=== PATIENT | female | born 1985 | race Caucasian/White ===

== ENCOUNTER 2020-03-03 06:02 | Inpatient (IN) | payer OTHER, SELFPAY ==
[2020-03-03] VITALS (96 sets, daily range): BP systolic 57–184; BP diastolic 28–134; PULSE 60–241; RESP 16–18; TEMP 36.3–37.1; O2SAT 99–100; BMI 40.7
[2020-03-03 06:53] LABS: Glucose Point of Care 124 (65-105)
--- NOTE | 2020-03-03 07:06 | LDADM ---
This patient, Margarette Kumari, was admitted to Labor/Delivery/Recovery 104 on 03/03/20 at 06:02. Plans for labor, pain management and were discussed with patient. Patient/family oriented to hospital policies and general routines including ID bracelet, bed and alarms, visiting hours, pain management, procedures, bathroom and other care routines, personal items, smoking policy, room service/diet and guest tray routines, infant security routines, and visiting hours. Patient/Family are encouraged to report perceived risks to care and to ask questions if they do not understand what they are told or what they should do. See OBIX for further documentation.
[2020-03-03] MEDS: LACTATED RINGERS 1,000 ML 125 ML IV CONT ×2 (07:11→10:26)
[2020-03-03] MEDS: OXYTOCIN 30 UNITS/NS 500 ML 30 UNITS/500 ML BAG IV CONT ×2 (07:12→14:51)
[2020-03-03 07:23] LABS: Basophils Percent Auto 0.3 % (0.2-1.2); Eosinophils Absolute Auto 0.1 K/mm3 (0-0.3); Eosinophils Percent Auto 1.1 % (0-4.4); Hematocrit 37.1 % (37.0-47.0); Hemoglobin 12.9 g/dL (12.0-15.0); Immature Granulocyte Absolute 0.04 K/mm3 (0.00-0.031); Immature Granulocyte Percent A 0.4 % (0-0.5); Lymphocytes Absolute Auto 1.95 K/mm3 (0.9-3.2); Lymphocytes Percent Auto 20.9 % (18.3-44.2); Mean Corpuscular HGB Conc 34.8 g/dl (32-36); Mean Corpuscular Volume 89.2 fl (80-100); Mean Platelet Volume 11.8 fl (7.4-10.4); Monocytes Absolute Auto 0.7 K/mm3 (0.1-0.6); Monocytes Percent Auto 7.7 % (2.6-8.5); Neutrophils Absolute Auto 6.5 K/mm3 (1.3-6.7); Neutrophils Percent Auto 69.6 % (45.5-73.1); Platelet Count Result 185 k/mm3 (150-375); Red Blood Count 4.16 M/mm3 (4.2-5.4); Red Cell Distribution Width 13.7 % (11.5-14.5); White Blood Count 9.3 K/mm3 (4.5-10.0)
--- NOTE | 2020-03-03 07:48 | WPDOBADMIT ---
Obstetrics - Admit Note Admission Note: 34 y/o here for induction of labor. She has late diganosis GDM. Diet controlled. EFT 7-12 11 days ago. VSS Contractions regular FHR category 1 Cervix /-2 Will defer arom until antibiotics for GBS have been in for 4 hours. record reviewed. No pertinent additions to the history and/or any subsequent changes in the physical findings that are not consistent with the expected course of the were found. Additions to the history and/or subsequent changes in the physical findings follow. None.
--- NOTE | 2020-03-03 10:25 | WPDANESEPP ---
Anes - Eval Pre Procedure Procedure: labor epidural Date/Time: 03/03/20 10:25 Surgeon: alli Pre Op Diagnosis: Induction to Labor Patient Data Age: 34 Gender: F Height: 1.7 m Weight: 118 kg Last Vital Signs Temp 37.1 C 03/03/20 07:30 Pulse 68 03/03/20 09:31 BP 97/60 L 03/03/20 09:31 Pulse Ox 100 03/03/20 10:25 Allergies Allergy/AdvReac Type Severity Reaction Status Date / Time Penicillins Allergy Unknown Itching Verified 09/22/19 19:50 Home Medications Medication Instructions Recorded Confirmed Type PNV cmb#95-ferrous fumarate-FA 1 tablet PO DAILY 02/25/20 02/25/20 History [] clonazepam 0.5 mg PO DAILY 02/25/20 02/25/20 History fluoxetine 20 mg PO DAILY 02/25/20 02/25/20 History levothyroxine 25 mcg PO DAILY 02/25/20 02/25/20 History Laboratory Tests 03/03/20 03/03/20 03/03/20 06:48 06:55 06:55 WBC 9.3 K/mm3 K/mm3 (4.5-10.0) RBC 4.16 M/mm3 L M/mm3 (4.2-5.4) Hgb 12.9 g/dL g/dL (12.0-15.0) Hct 37.1 % % (37.0-47.0) MCV 89.2 fl fl (80-100) MCH 31.0 pg pg (26-34) MCHC 34.8 g/dl g/dl (32-36) RDW 13.7 % % (11.5-14.5) Plt Count 185 k/mm3 k/mm3 (150-375) MPV 11.8 fl H fl (7.4-10.4) Immature Gran % (Auto) 0.4 % % (0-0.5) Neut % (Auto) 69.6 % % (45.5-73.1) Lymph % (Auto) 20.9 % % (18.3-44.2) [place] % (Auto) 7.7 % % (2.6-8.5) Eos % (Auto) 1.1 % % (0-4.4) Baso % (Auto) 0.3 % % (0.2-1.2) Lymph # (Auto) 1.95 K/mm3 K/mm3 (0.9-3.2) [place] # (Auto) 0.7 K/mm3 H K/mm3 (0.1-0.6) Eos # (Auto) 0.1 K/mm3 K/mm3 (0-0.3) Baso # (Auto) 0.0 K/mm3 K/mm3 (0.0-0.1) Abs Immat Gran (auto) 0.04 K/mm3 H K/mm3 (0.00-0.031) Absolute Neuts (auto) 6.5 K/mm3 K/mm3 (1.3-6.7) Absolute Nucleated RBC 0.0 K/mm3 K/mm3 (0.0-0.012) Nucleated RBC % 0.0 % % (0.0-0.2) POC Capillary Glucose 124 mg/dl H mg/dl (65-105) RPR Pending Blood Type Antibody Screen 03/03/20 06:55 WBC RBC Hgb Hct MCV MCH MCHC RDW Plt Count MPV Immature Gran % (Auto) Neut % (Auto) Lymph % (Auto) [place] % (Auto) Eos % (Auto) Baso % (Auto) Lymph # (Auto) [place] # (Auto) Eos # (Auto) Baso # (Auto) Abs Immat Gran (auto) Absolute Neuts (auto) Absolute Nucleated RBC Nucleated RBC % POC Capillary Glucose RPR Blood Type A Positive Antibody Screen Negative Patient hx anesthesia problems: none Family hx anesthesia problems: none PMFSH Past Medical History Medical History (Updated 09/23/19 @ 00:00 by Stephen Badillo) Anxiety Depression Dog bite rt leg, surgery needed Fractures rt toe, rt ankle Miscarriage x2 Surgical History Surgical History (Updated 09/22/19 @ 20:08 by Lina Campos) History of orthopedic surgery rt foot Family History Family History (Updated 02/25/20 @ 13:43 by Aric Valdivia RN) Mother Thyroid disease Hypertension High cholesterol Grandparent Hypertension Breast cancer Sibling Hepatitis Bleeding disorder Father Lung cancer Social History Social History (Updated 09/22/19 @ 20:08 by Lina Campos) Smoking status: Never smoker Substance use: never Gender identity (if verbalized by the patient): Female Sexual Orientation (if Verbalized by the Patient): Straight or Heterosexual Spiritual care concerns: No Exam Day of Procedure 03/03/20 10:25
[2020-03-03 11:16] LABS: Glucose Point of Care 79 (65-105)
--- NOTE | 2020-03-03 12:17 | PM.OBPNLAB ---
Pain Control Date/time seen: 03/03/20 12:17 VSS Contractions regular FHR category 1 Cervix 7-8/90/-2 SROM occured during exam Pt comfortable with epidural
[2020-03-03] MEDS: ONDANSETRON INJ 4 MG/2 ML VIAL IV PUSH (12:56)
--- NOTE | 2020-03-03 14:35 | PM.OBPRVD ---
OB - Delivery Note Procedure Delivery date: 03/03/20 Procedure: Intrapartal events: None Induction method: per pitocin protocol Delivery monitor: external FHT and external uterine Route of delivery: Laceration description: Labial (1st degree right labial) Delivery repair: vicryl Specimen: Yes Estimated blood loss (mL): 240 Anesthesia type: Epidural [place] Baby Date of : 03/03/20 Time of : 14:13 Weeks of gestation at delivery: 39 Infant gender: Male Weight (pounds): 8 Weight (ounces): 10 presentation: vertex score one minute: 8 score five minutes: 9 Narrative: Mother and baby in stable condition. Cord gasses collected and handed off to staff.
[2020-03-03] MEDS: BENZOCAINE 20% AER SPR (*SP) 56 GM CAN 1 SPRAY TOPICAL (16:22)
[2020-03-03] MEDS: WITCH HAZEL 40 PADS 1 PAD TOPICAL (16:22)
[2020-03-03] MEDS: ACETAMINOPHEN 325 MG TABLET 650 MG PO (21:19)
[2020-03-03] MEDS: ZOLPIDEM TARTRATE 5 MG TABLET PO (21:19)
[2020-03-03] MEDS: IBUPROFEN 600 MG TABLET PO (21:19)
[2020-03-04 05:13] LABS: Hemoglobin 10.7 g/dL (12.0-15.0)
[2020-03-04] MEDS: LEVOTHYROXINE SODIUM 25 MCG TABLET PO (06:52)
[2020-03-04] MEDS: IBUPROFEN 600 MG TABLET PO ×2 (07:09→17:24)
--- NOTE | 2020-03-04 07:37 | PM.OBPNVD ---
OB - PN: Subj Subjective Date/time seen: 03/04/20 07:37 Patient comments: no complaints, pain well controlled, incisional pain, tolerating diet and flatus present OB - PN: Obj Data Labs CBC & Chem 7: 03/04/20 05:04 Labs: Laboratory Results - last 24 hr 03/03/20 03/03/20 03/04/20 06:55 11:05 05:04 Hgb 10.7 L Hct 31.0 L POC Capillary Glucose 79 Blood Type A Positive Antibody Screen Negative OB - PN A/P Plan day: 1 Plan: routine care Comments: No problems, routine care Time Spent With Patient Time: Total time spent is greater than 50% in coordination of care (as documented) at patient's floor/unit and/or counseling patient: Exam Const: General: comfortable, no acute distress and alert Resp: Effort & Inspection: normal respiratory effort Auscultation: no crackles, no rales and no rhonchi Cardio: Rate: regular rate Heart sounds: no click, no murmurs and no rubs GI: Inspection: non-distended GI Palp: No Tenderness to palpation present (GI) Auscultation: normal bowel sounds Other: Incision - CDI Extrem: General: normal to inspection, no pedal edema and no calf tenderness
[2020-03-04 08:05] VITALS: BP 88/48; PULSE 64; RESP 16; TEMP 36.8; O2SAT 97
[2020-03-04 08:54] LABS: Rapid Plasma Reagin Non-Reactive (NonReactive)
[2020-03-04] MEDS: CLONAZEPAM 0.5 MG TAB PO (09:43)
[2020-03-04] MEDS: TETANUS,DIPHTHERIA,AC PERTUSSIS ADULT (0.5 ML) BOOSTRIX IM (09:43)
--- NOTE | 2020-03-04 10:44 | WPDANLDPN2 ---
Anes-Prog Note L&D Date/Time: 03/04/20 10:44 Comfortable throughout: labor and delivery Neuraxial method: epidural Epidural/Spinal procedure site: clean & non-tender Neuro status: Neuro function grossly intact. Cardiovascular status: normal Vital Signs: Last Vital Signs Temp 36.8 C 03/04/20 08:05 Pulse 64 03/04/20 08:05 Resp 16 03/04/20 08:05 BP 88/48 L 03/04/20 08:05 Pulse Ox 97 03/04/20 08:05 I/O: Intake & Output 03/03/20 03/04/20 03/04/20 23:59 07:59 15:59 Output Total 120 Balance -120 Patient feedback: Patient satisfied with anesthetic care.
[2020-03-04] MEDS: MULTIVIT/MIN/PREN/FOL AC/IRON TABLET 1 TAB PO (12:48)
[2020-03-04 20:10] VITALS: BP 122/67; PULSE 67; RESP 14; TEMP 36.9; O2SAT 100
[2020-03-04] MEDS: FLUOXETINE HCL 20 MG CAP PO (21:19)
[2020-03-04] MEDS: ZOLPIDEM TARTRATE 5 MG TABLET PO (21:20)
[2020-03-05] MEDS: LEVOTHYROXINE SODIUM 25 MCG TABLET PO (07:04)
--- NOTE | 2020-03-05 07:23 | PM.OBPNVD ---
OB - PN: Subj Subjective Date/time seen: 03/05/20 07:23 Patient comments: no complaints OB - PN: Obj Data Labs CBC & Chem 7: 03/04/20 05:04 Labs: Laboratory Results - last 24 hr 03/03/20 06:55 RPR Non-reactive OB - PN A/P Plan day: 2 Plan: discharge home Time Spent With Patient Time: Total time spent is greater than 50% in coordination of care (as documented) at patient's floor/unit and/or counseling patient: Review of Systems Review of Systems: All systems reviewed & are unremarkable except as noted in HPI and below Exam Const: General: comfortable Psych: Appearance: grossly normal Affect: normal affect Attitude: cooperative Judgement: Good judgement present (Psych)
[2020-03-05 08:00] VITALS: BP 100/61; PULSE 74; RESP 18; TEMP 36.9; O2SAT 97
--- NOTE | 2020-03-05 08:23 | PC.NURSE ---
On 03/05/20, all charting on this pt. from [phone] to [id number] under the name Tio Gates RN was actually performed and completed by Sreedhar Funez RN
[2020-03-05] MEDS: CLONAZEPAM 0.5 MG TAB PO (09:04)
[2020-03-05] MEDS: MULTIVIT/MIN/PREN/FOL AC/IRON TABLET 1 TAB PO (09:04)
[2020-03-05] MEDS: BENZOCAINE 20% AER SPR (*SP) 56 GM CAN 1 SPRAY TOPICAL (09:06)
[2020-03-05] MEDS: WITCH HAZEL 40 PADS 1 PAD TOPICAL (09:06)
[2020-03-06 09:33] VITALS: BP 106/71; PULSE 70; RESP 20; TEMP 36.8
--- NOTE | 2020-03-28 12:05 | PM.OBDSVD ---
DS: Admitting Diagnosis Admitting Diagnosis Admitting Diagnosis: Encounter for supervision of normal , unspecified, third trimester OB - DS: Summary OB Procedures : None OB Procedures Intrapartum: Spontaneous Vag Delivery OB Procedures: : None Time Spent with Patient Time attestation: Total time spent providing and/or coordinating discharge services: DS: Data Data Completed and Pending Completed studies during hospitalization: Pending at discharge 03/03/20 15:56 Surgical [PTH] Routine Discharge Plan Discharge Attending physician on discharge: Zuleika Montanez Consulting providers: Jing Fuentes ; Cadence Marin Discharging Clinician: Cadence Marin Patient Disposition: Home, Self-Care Activity: pelvic rest Diet: as tolerated and regular Discharge Instructions: Education: Mom and Baby Guide Given to: Mother Follow-Up: Call your delivering provider's office for an appointment to be seen. Mom and baby should come to the [facility] for the follow-up appointment. Appointment Date/Time: March 06, 2020 at 9:00 am What to expect at your follow-up visit: Physical Assessment Call [phone] if you are unable to keep your appointment time. BREAST CARE: 1. Wear a snug supportive bra. 2. For engorgement discomfort: Bottle Feeding: A. May apply ice packs PERINEAL CARE: 1. Until bleeding stops, use your azul bottle after urinating 2. Change your pad frequently throughout the day 3. You may take sitz baths several times a day (fill your bathtub with warm water and soak for 20 minutes.) Do NOT bathe in the water 4. No tub baths until seen by your physician - You may shower ACTIVITY: 1. Rest as much as possible. 2. Do not exercise or lift anything heavier than your baby (such as laundry or other children.) 3. Avoid stairs or driving as much as possible. 4. Do not put anything into the vagina. No douching, tampons, or sexual activity until seen by physician. NOTIFY PHYSICIAN IF YOU HAVE ANY QUESTIONS OR IF ANY OF THE FOLLOWING SYMPTOMS OCCUR: 1. If your stitches become red, swollen, or more painful than what you have experienced in the hospital. 2. If your vaginal bleeding becomes foul smelling. 3. If your vaginal bleeding becomes more heavy than a period or if your bleeding changes from pink to bright red. However, you may pass an occasional walnut-sized clot once or twice for the first week . 4. If you experience a sharp, shooting pain in you calves. 5. If you discover a hard, reddened area on your breast or if you experience flu-like symptoms. DIET: 1. Eat regular, well-balanced meals. 2. Drink plenty of fluids daily. Patient Instructions: Antibiotic Form Stand Alone Forms: General Discharge Information Follow-up/Referrals: Zuleika Montanez MD [Physician] - 4 Weeks Cadence Marin CNM [Certified Nurse Presser Hand] - Discharge Medications: Continued clonazepam 0.5 mg Tablet 0.5 mg PO DAILY RF: 0 fluoxetine 20 mg Capsule 20 mg PO DAILY RF: 0 levothyroxine 25 mcg Capsule 25 mcg PO DAILY RF: 0 PNV cmb#95-ferrous fumarate-FA [] 28 mg iron- 800 mcg Tablet 1 tablet PO DAILY RF: 0 Date of admission: 03/03/20 06:02 Primary Care Provider: PHYSICIAN,OPHTHALMIC PATHOLOGIST Admitting Provider: Zuleika Montanez Discharge Date/Time: 03/05/20 09:56 Attending physician on admission: Zuleika Montanez
== END 2020-03-05 09:56 | disposition home or self-care (01) | DRG 560 ==
LOC: ANHLDR 06:08 → ANHOB2 17:53
PROVIDERS: Advanced Practice Midwife; Admitting Provider Obstetrics & Gynecology; Visit Provider Obstetrics & Gynecology
DX: O24.420 Gestational diabetes mellitus in childbirth, diet controlled (principal); Z37.0 Single live birth; Z3A.39 39 weeks gestation of pregnancy; O99.824 Streptococcus B carrier state complicating childbirth; O70.0 First degree perineal laceration during delivery; O99.344 Other mental disorders complicating childbirth; F41.8 Other specified anxiety disorders
CPT/HCPCS: 36415; 85014; 85018; 85025; 86592; 86850; 86900; 86901; 88307; 90715; A9270; J2405; J2590; J2795; J3010; J3370; J7120

== ENCOUNTER 2024-10-03 15:30 | Outpatient (RCR) | payer MEDICARE, MEDICAID, SELFPAY ==
--- NOTE | 2024-07-31 16:11 | OPREHPOC ---
Outpatient Therapy Plan of Care This is a Multidisciplinary Plan of Care that may contain components documented by all disciplines (PT, OT, and ST.) PT Problem 1 PT Problem #1 Knowledge Deficit PT Goal 1 Goal / Goal Update *indep with HEP Target Visit 8 PT Problem 2 PT Problem #2 Pain PT Goal 1 Goal / Goal Update 1* decrease pain rating to 5/10 at worst 2* pt report headaches 50% of the time 3* Neck Disability Index rating of 30% limitation in activity level Target Visit 8 PT Problem 3 PT Problem #3 Impaired Flexibility PT Goal 1 Goal / Goal Update increase cervical & shoulder ROM to improve ability to drive and do home activities: 1* cervical rotation R 65' 2* cervical rotation L 50' 3* R shoulder flexion 120' 4* L shoulder flexion 120' Target Visit 8
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
--- NOTE | 2024-08-28 14:16 | PTOPPROG ---
Assessment and note entered by Chiquis Loera, PT Progress Report Assessment Status Progress ICD-10 Condition Codes (PT) Cervicalgia M54.2 Onset 05-20-24 Subjective Information therapy makes me feel a little better for the rest of that day; electrical stim helped some; have been doing the exercises at home-- stretching and using the band to get stronger- they kind of help; called [facility] to get an appointment, they did not call me back; PAIN: range in the past week -03/28 decrease pain: heat pad, electrical stim, tylenol increase pain: turn head to R or L side, doing too much, first wake up in the morning have headaches daily that start about mid day, lasting about 50% of her day take tylenol for the headaches and neck pain sleeping is OK- take sleeping pill Assessment PT Clinical Summary Margarette has received 8 PT sessions. Compared to the initial evaluation: pain rating from to -03/28; reported headaches from constant to 50% of the day, onset daily in the afternoon; self assessment with Neck Disability Index rating from 42% to 24% limitation in activity level; cervical rotation to R 45'/ L 40' with increase pain both; flexion and extension - ranges WNL and no pain increase; bilateral shoulder flexion from 90' with pain to 140' without pain; continues to have muscle tightness and spasms over R and L cervical, upper traps areas. The goals were partially met. Continue PT treatment. She is to contact her medical provider for a follow up appointment. Plan of Care Interventions Electrical Stimulation,Hot Pack/Cold Pack,Manual Therapy,Neuro Re-education,Patient Education,Therapeutic Activities,Therapeutic Exercise,Ultrasound,Other Other Interventions taping PT Services Indicated Yes Treatment Frequency and 1-2x/wk for 6 visits Duration These treatments will address the objective and functional deficits as defined above. The patient will be advanced safely and appropriately in order for the patient to progress towards his/her prior level of function. Additional exercises will be introduced and as well as a comprehensive home exercise program upon discharge, if needed, ?to ensure carryover of functional gains achieved in the clinic. This treatment plan has been reviewed and agreement upon by the patient.
--- NOTE | 2024-08-28 14:16 | OPREHPOC ---
Outpatient Therapy Plan of Care This is a Multidisciplinary Plan of Care that may contain components documented by all disciplines (PT, OT, and ST.) PT Problem 1 PT Problem #1 Knowledge Deficit PT Goal 1 Goal / Goal Update *indep with HEP 08-28-24 progress goal met continue to progress education Target Visit 14 PT Problem 2 PT Problem #2 Pain PT Goal 1 Goal / Goal Update 1* decrease pain rating to 5/10 at worst 2* pt report headaches 50% of the time 3* Neck Disability Index rating of 30% limitation in activity level 08-28-24 progress goals 2,3 met NEW GOALS: 1* pain rating of 5/10 at worst 2* self assessment Neck Index rating of 18% limitation in activity level 3* pt report headaches 25% limitation in activity level Target Visit 14 PT Problem 3 PT Problem #3 Impaired Flexibility PT Goal 1 Goal / Goal Update increase cervical & shoulder ROM to improve ability to drive and do home activities: 1* cervical rotation R 65' 2* cervical rotation L 50' 3* R shoulder flexion 120' 4* L shoulder flexion 120' 08-28-24 progress goals 3,4 met continue towards 1 & 2 Target Visit 14
--- NOTE | 2024-09-13 15:31 | PCPTNOTE ---
pt called and canceled today's appt due to being with her son at Urgent Care.
--- NOTE | 2024-09-17 15:37 | PCPTNOTE ---
Called and canceled, ill . AKS
--- NOTE | 2024-09-21 08:50 | PCPTNOTE ---
pt called and canceled today's reeval cannot make it in today
--- NOTE | 2024-10-03 16:02 | PTOPDC ---
Assessment and note entered by Chiquis Loera, PT Assessment Status Discharge ICD-10 Condition Codes (PT) Cervicalgia M54.2 Onset 05-20-24 Subjective Information nothing is really that different with my neck, but it is a little better than when I first started therapy; have been trying to do the stretches as I can when not busy and running with the kids; Reported Pain Level Pain Score Self Report Additional Pain Score Comments pain range from 3-5/10 in the past week; with the headaches is having visual changes-- called and has an eye appt in 3 weeks have headaches 3-4 x/wk, lasting 20-30 minutes, until tylenol starts working; increase pain: wake up every morning when wake up, cold weather decrease pain: heating pad, tylenol Assessment PT Clinical Summary Margarette has received 12 PT sessions. Compared to the last reevaluation: pain range from 5-7/10 to 3-5/10; self assessment with Quick DASH rating from 24% to 32% limitation in activity level; headaches 50% of the day to 3-4 x/wk; cervical rotation to R and L increased to 50' with reports of tight and pain at end range; bilateral shoulder flexion- sore in both shoulders education for HEP and posture. The electrical stim and heat decrease her pain--discussed home stim unit and use of it. The goals were partially met. Discharge PT. She is to continue with the home exercises and monitor her neck position and posture. Plan of Care PT Services Indicated No
== END 2024-10-04 10:43 | disposition home or self-care (01) ==
LOC: ANHPT 15:30
PROVIDERS: PCP Nurse Practitioner Family; Visit Provider Nurse Practitioner Family
DX: M54.2 Cervicalgia (principal)
CPT/HCPCS: 97014; 97110; 97140; 97161; 97530; G0283

== ENCOUNTER 2024-10-18 11:26 | Outpatient (CLI) | payer MEDICARE, MEDICAID, SELFPAY ==
--- NOTE | ~2024-10-18 | MMUS_ITS ---
EXAMINATION: MM diagnostic jasmyn BI w scottie, US breast LT limited HISTORY: Palpable left breast lump TECHNIQUE: Additional 3-D tomosynthesis images of the breasts were performed and synthetic 2-D images were generated. CAD analysis was submitted and interpreted. High resolution Limited left breast ultr asound was performed. COMPARISON: None BREAST PARENCHYMAL COMPOSITION: Dense: The breasts are heterogeneously dense, which may obscure small masses FINDINGS: MAMMOGRAPHIC FINDINGS: There are no suspicious masses, calcifications or architectural distortion in either breast to sugges t malignancy. ULTRASOUND: Limited left breast ultrasound: There is a minimally complicated cyst measuring 8 mm at 2:00, 12 cm f rom the nipple in the area of palpable concern. No suspicious masses to suggest malignancy. IMPRESSION: 1. No evidence for malignancy in either breast. 2. Routine yearly screening mammogram and regular clinical breast examination are recommended. BI-RADS Category 2: Benign finding(s). Reviewed, dictated and finalized at location A. TICS SEASONER OPERATOR IMPRESSION: 1. No evidence for malignancy in either breast. 2. Routine yearly screening mammogram and regular clinical breast examination a re recommended. BI-RADS Category 2: Benign finding(s).
--- OUTSIDE RECORDS SUMMARY | 2024-10-18 12:23 | XMS_ITS | Patient Health Record ---
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 Role Phone Selina Anaya Primary Care Provider Cherie Piña [phone] Allergies Allergen (clinical drug ingredient) Drug/Non Drug Allergy documented on EMR Reaction Allergy Type Onset Date Status PENICILLIN itching Drug Allergy Active Results Component Value Reference Range Notes TSH* Reviewed date:02/02/2024 11:49:44 AM Interpretation:Normal Performing Lab:[facility], [address] [facility], Phone - [phone], Director - Daniela Notes/Report: TSH 0.875 0.450-4.500 uIU/mL CBC With Differential/Platel et* Reviewed date:02/02/2024 11:50:16 AM Interpretation:Normal Performing Lab:[facility], [address] [facility], Phone - [phone], Director - [facility] Notes/Report: WBC 6.8 3.4-10.8 x10E3/uL RBC 4.41 3.77-5.28 x10E6/uL Hemoglobin 12.7 11.1-15.9 g/dL Hematocrit 37.9 34.0-46.6 % MCV 86 79-97 fL MCH 28.8 26.6-33.0 pg MCHC 33.5 31.5-35.7 g/dL RDW 13.2 11.7-15.4 % Platelets 248 150-450 x10E3/uL Neutrophils 65 Not Estab. % Lymphs 25 Not Estab. % Monocytes 8 Not Estab. % Eos 1 Not Estab. % Basos 1 Not Estab. % Neutrophils (Absolute) 4.4 1.4-7.0 x10E3/uL Lymphs (Absolute) 1.7 0.7-3.1 x10E3/uL Monocytes(Absolute) 0.6 0.1-0.9 x10E3/uL Eos (Absolute) 0.1 0.0-0.4 x10E3/uL Baso (Absolute) 0.1 0.0-0.2 x10E3/uL Immature Granulocytes 0 Not Estab. % Immature Grans (Abs) 0.0 0.0-0.1 x10E3/uL Lipid Panel* Reviewed date:02/02/2024 11:49:16 AM Interpretation:Abnormal Performing Lab:[facility] [address], Phone - [phone], Director - [facility] Notes/Report: Cholesterol, Total 174 100-199 mg/dL Triglycerides 110 0-149 mg/dL HDL Cholesterol 52 >39 mg/dL VLDL Cholesterol Kane 20 5-40 mg/dL LDL Chol Calc (NIH) 102 0-99 mg/dL CMP 14 Comprehensive Metabol ic Panel* Reviewed date:02/02/2024 11:50:01 AM Interpretation:Abnormal Performing Lab:[facility], [address] [facility], Phone - [phone], Director - [facility] Notes/Report: Glucose 91 70-99 mg/dL BUN 12 6-20 mg/dL Creatinine 0.78 0.57-1.00 mg/dL eGFR 100 >59 mL/min/1.73 BUN/Creatinine Ratio 15 9-23 Sodium 140 134-144 mmol/L Potassium 4.0 3.5-5.2 mmol/L Chloride 105 96-106 mmol/L Carbon Dioxide, Total 23 20-29 mmol/L Calcium 8.9 8.7-10.2 mg/dL Protein, Total 6.0 6.0-8.5 g/dL Albumin 3.9 3.9-4.9 g/dL Globulin, Total 2.1 1.5-4.5 g/dL A/G Ratio 1.9 1.2-2.2 Bilirubin, Total 0.3 0.0-1.2 mg/dL Alkaline Phosphatase 111 44-121 IU/L AST (SGOT) 41 0-40 IU/L ALT (SGPT) 36 0-32 IU/L 12 Panel Urine Drug Screen Reviewed date:01/27/2024 09:18:02 AM Interpretation: Performing Lab: Notes/Report: THC pos NINFA neg MOP (OPI) neg AMP pos MET neg BAR neg BZO pos MDMA neg MTD neg OXY neg PCP neg BUP neg Reason For Referral No Information Medications Medication SIG (Take, Route, Frequency, Duration) Notes Start Date End Date Status Rexulti 2 mg 1 tablet oral once daily for 30 days Active Rexulti 2 mg 1 tablet oral once daily for 30 days Not-Taking Adderall 20 MG 1 tablet Orally Thre e times daily for 30 days 12/04/2024 Active Cyanocobalamin 1000 MCG/ML as directed I njection Weekly Active Adderall 20 MG 1 tablet Orally Thre e times daily for 30 days 10/09/2024 Active Adderall 20 MG 1 tablet Orally Thre e times daily for 30 days 11/06/2024 Active Levothyroxine Sodium 50 MCG 1 tablet in the morning on an empty stomach Orally Once a day for 30 days Active KlonoPIN 1 MG 1 tablet Orally up t o three times daily as needed for 30 days 10/18/2024 Active Vitamin D (Ergocalciferol) 01420ATI TAKE 1 CAPSULE BY MOUTH ONCE A MONTH DIRECTED Active Zolpidem Tartrate 10MG 1 tablet at bedti me as needed Orally Once a day for 30 days 10/12/2024 Active PROzac 20MG 1 capsule Orally Onc e a day for 30 days Active Social History Tobacco Use: Social History Observation Description Date Details (start date - stop date) Never Smoker NA - NA Sex Assigned At : Social History Observation Description Sex Assigned At Female Dont use, Tobacco Use/Smoking Question Answer Notes Are you a nonsmoker Problems Problem Type SNOMED Code ICD Code Onset Dates Problem Status W/U Status Risk Notes Problem Generalized anxiety disorder (94350448) Generalized anxiety disorder (F41.1) Active confirmed Problem Obesity (512908414) Obesity (E66.9) Active confirmed Problem Major depression (898957570) Major depression (F32.9) Active confirmed Problem [id number] Anxiety disorder (F41.9) Active confirmed Problem 5173626 Major depression, chronic (F32.9) Active confirmed Problem Attention deficit hyperactivity disorder (664621319) Adult ADHD (F90.9) Active confirmed Vital Signs Height 67 in 2024 Weight 189 lbs 2024 BMI 29.6 kg/m2 2024 Encounters Encounter Location Date Provider Diagnosis [address] [place] [address] 10/24/2023 Selinate RivasHéctor [facility] [address] [address] 11/01/[address] [address] 11/07/[address] [address] 01/17/2024 Pray Héctor[address] [address] 04/24/[address] [place] [address] 01/27/2024 Selina Anaya Major depression, chronic F32.9 ; Medication monitoring encounter Z51.81 and Adult ADHD F90.[address] [address] 02/29/2024 Selina Anaya Anxiety disorder F41.9 ; Major depression, chronic F32.9 ; Adult ADHD F90.9 ; Obesity E66.9 and Medication monitoring encounter Z51.[address] [address] 06/07/2024 Selina Anaya Anxiety disorder F41.9 ; Major depression, chronic F32.9 ; Adult ADHD F90.9 ; Obesity E66.9 and Medication monitoring encounter Z51.[address] [address] 07/05/2024 Selina Anaya Anxiety disorder F41.9 ; Major depression, chronic F32.9 ; Adult ADHD F90.9 ; Obesity E66.9 and Medication monitoring encounter Z51.[address] [place] [address] 2024 Selina Anaya Anxiety disorder F41.9 ; Major depression, chronic F32.9 ; Adult ADHD F90.9 ; Obesity E66.9 and Medication monitoring encounter Z51.81 [facility] [address] [place] [address] 10/19/2023 Selina Héctor Anxiety disorder F41.9 ; Major depression, chronic F32.9 ; Adult ADHD F90.9 ; Obesity E66.9 and Medication monitoring encounter Z51.81 [facility] [address] [place] [address] 01/17/2024 Selina Héctor Anxiety disorder F41.9 ; Major depression, chronic F32.9 ; Adult ADHD F90.9 ; Obesity E66.9 and Medication monitoring encounter Z51.81 Assessments Encounter Date Diagnosis (ICD Code) Assessment Notes Treatment Notes Treatment Clinical Notes Section Notes 07/05/2024 Anxiety disorder (ICD-10 - F41.9) continue at this time. encouraged therapy. discussed risks of long-term benzodiazepine use. client reports understanding and states I cannot do without them. will work on continued education and attempting to wean down this medication. this was strongly recommended by this provider.Therapy also encouraged. PDMP checked without concern. May fill Adderall on 07/15/24. May fill clonazepam on 07/12/24. Educated client with information that benzodiazepines are not recommended for long-term use due to potent and dangerous side effects that include increased drowsiness, memory impairment, increased irritability, mood changes, and worsening of PTSD symptoms. Benzodiazepines increase respiratory depression which can aggravate conditions such as sleep apnea and COPD leading to possible . They should also never be combined with alcohol, pain medications (especially opioids), or street drugs because this can lead to overdose and possible . If you are under the influence of benzodiazepines while operating a motor vehicle and are involved in a car accident you can be charged with driving while intoxicated. Benzodiazepine use increases unsteady gait thereby increasing the risk of falls, broken bones, and concussions. Benzodiazepine use is intended for short-term use, up to 3 weeks at most. Long-term use of benzos can lead to dependence, rebound anxiety/agitation, and withdrawal symptoms that include sleep disturbance, irritability, increased tension and anxiety, panic attacks, hand tremor, sweating, difficulty in concentration, dry retching, and nausea, some weight loss, palpitations, headache, muscular pain and stiffness, and a host of perceptual changes. 2024 Anxiety disorder (ICD-10 - F41.9) continue at this time. encouraged therapy. discussed risks of long-term benzodiazepine use. client reports understanding and states I cannot do without them. will work on continued education and attempting to wean down this medication. this was strongly recommended by this provider.Therapy also encouraged. PDMP checked without concern. Educated client with information that benzodiazepines are not recommended for long-term use due to potent and dangerous side effects that include increased drowsiness, memory impairment, increased irritability, mood changes, and worsening of PTSD symptoms. Benzodiazepines increase respiratory depression which can aggravate conditions such as sleep apnea and COPD leading to possible . They should also never be combined with alcohol, pain medications (especially opioids), or street drugs because this can lead to overdose and possible . If you are under the influence of benzodiazepines while operating a motor vehicle and are involved in a car accident you can be charged with driving while intoxicated. Benzodiazepine use increases unsteady gait thereby increasing the risk of falls, broken bones, and concussions. Benzodiazepine use is intended for short-term use, up to 3 weeks at most. Long-term use of benzos can lead to dependence, rebound anxiety/agitation, and withdrawal symptoms that include sleep disturbance, irritability, increased tension and anxiety, panic attacks, hand tremor, sweating, difficulty in concentration, dry retching, and nausea, some weight loss, palpitations, headache, muscular pain and stiffness, and a host of perceptual changes. 10/19/2023 Anxiety disorder (ICD-10 - F41.9) continue at this time. encouraged therapy. discussed risks of long-term benzodiazepine use. client reports understanding and states I cannot do without them. will work on continued education and attempting to wean down this medication. this was strongly recommended by this provider. PDMP checked with no concerns. Educated client with information that benzodiazepines are not recommended for long-term use due to potent and dangerous side effects that include increased drowsiness, memory impairment, increased irritability, mood changes, and worsening of PTSD symptoms. Benzodiazepines increase respiratory depression which can aggravate conditions such as sleep apnea and COPD leading to possible . They should also never be combined with alcohol, pain medications (especially opioids), or street drugs because this can lead to overdose and possible . If you are under the influence of benzodiazepines while operating a motor vehicle and are involved in a car accident you can be charged with driving while intoxicated. Benzodiazepine use increases unsteady gait thereby increasing the risk of falls, broken bones, and concussions. Benzodiazepine use is intended for short-term use, up to 3 weeks at most. Long-term use of benzos can lead to dependence, rebound anxiety/agitation, and withdrawal symptoms that include sleep disturbance, irritability, increased tension and anxiety, panic attacks, hand tremor, sweating, difficulty in concentration, dry retching, and nausea, some weight loss, palpitations, headache, muscular pain and stiffness, and a host of perceptual changes. 01/17/2024 Anxiety disorder (ICD-10 - F41.9) continue at this time. encouraged therapy. discussed risks of long-term benzodiazepine use. client reports understanding and states I cannot do without them. will work on continued education and attempting to wean down this medication. this was strongly recommended by this provider.Therapy also encouraged. PDMP checked- client stated she was on phentermine for November and not taking Adderall. Phentermine filled 12/17. Will continue to monitor. Educated client with information that benzodiazepines are not recommended for long-term use due to potent and dangerous side effects that include increased drowsiness, memory impairment, increased irritability, mood changes, and worsening of PTSD symptoms. Benzodiazepines increase respiratory depression which can aggravate conditions such as sleep apnea and COPD leading to possible . They should also never be combined with alcohol, pain medications (especially opioids), or street drugs because this can lead to overdose and possible . If you are under the influence of benzodiazepines while operating a motor vehicle and are involved in a car accident you can be charged with driving while intoxicated. Benzodiazepine use increases unsteady gait thereby increasing the risk of falls, broken bones, and concussions. Benzodiazepine use is intended for short-term use, up to 3 weeks at most. Long-term use of benzos can lead to dependence, rebound anxiety/agitation, and withdrawal symptoms that include sleep disturbance, irritability, increased tension and anxiety, panic attacks, hand tremor, sweating, difficulty in concentration, dry retching, and nausea, some weight loss, palpitations, headache, muscular pain and stiffness, and a host of perceptual changes. 06/07/2024 Anxiety disorder (ICD-10 - F41.9) continue at this time. encouraged therapy. discussed risks of long-term benzodiazepine use. client reports understanding and states I cannot do without them. will work on continued education and attempting to wean down this medication. this was strongly recommended by this provider.Therapy also encouraged. PDMP checked, no concerns Educated client with information that benzodiazepines are not recommended for long-term use due to potent and dangerous side effects that include increased drowsiness, memory impairment, increased irritability, mood changes, and worsening of PTSD symptoms. Benzodiazepines increase respiratory depression which can aggravate conditions such as sleep apnea and COPD leading to possible . They should also never be combined with alcohol, pain medications (especially opioids), or street drugs because this can lead to overdose and possible . If you are under the influence of benzodiazepines while operating a motor vehicle and are involved in a car accident you can be charged with driving while intoxicated. Benzodiazepine use increases unsteady gait thereby increasing the risk of falls, broken bones, and concussions. Benzodiazepine use is intended for short-term use, up to 3 weeks at most. Long-term use of benzos can lead to dependence, rebound anxiety/agitation, and withdrawal symptoms that include sleep disturbance, irritability, increased tension and anxiety, panic attacks, hand tremor, sweating, difficulty in concentration, dry retching, and nausea, some weight loss, palpitations, headache, muscular pain and stiffness, and a host of perceptual changes. 02/29/2024 Anxiety disorder (ICD-10 - F41.9) continue at this time. encouraged therapy. discussed risks of long-term benzodiazepine use. client reports understanding and states I cannot do without them. will work on continued education and attempting to wean down this medication. this was strongly recommended by this provider.Therapy also encouraged. PDMP checked- client stated she was on phentermine for November and not taking Adderall. Phentermine filled 12/17. Will continue to monitor. Educated client with information that benzodiazepines are not recommended for long-term use due to potent and dangerous side effects that include increased drowsiness, memory impairment, increased irritability, mood changes, and worsening of PTSD symptoms. Benzodiazepines increase respiratory depression which can aggravate conditions such as sleep apnea and COPD leading to possible . They should also never be combined with alcohol, pain medications (especially opioids), or street drugs because this can lead to overdose and possible . If you are under the influence of benzodiazepines while operating a motor vehicle and are involved in a car accident you can be charged with driving while intoxicated. Benzodiazepine use increases unsteady gait thereby increasing the risk of falls, broken bones, and concussions. Benzodiazepine use is intended for short-term use, up to 3 weeks at most. Long-term use of benzos can lead to dependence, rebound anxiety/agitation, and withdrawal symptoms that include sleep disturbance, irritability, increased tension and anxiety, panic attacks, hand tremor, sweating, difficulty in concentration, dry retching, and nausea, some weight loss, palpitations, headache, muscular pain and stiffness, and a host of perceptual changes. 01/27/2024 Major depression, chronic (ICD-10 - F32.9) 01/27/2024 Medication monitoring encounter (ICD-10 - Z51.81) 02/29/2024 Major depression, chronic (ICD-10 - F32.9) 06/07/2024 Major depression, chronic (ICD-10 - F32.9) 01/17/2024 Major depression, chronic (ICD-10 - F32.9) 10/19/2023 Major depression, chronic (ICD-10 - F32.9) 2024 Major depression, chronic (ICD-10 - F32.9) 07/05/2024 Major depression, chronic (ICD-10 - F32.9) 07/05/2024 Adult ADHD (ICD-10 - F90.9) 2024 Adult ADHD (ICD-10 - F90.9) 10/19/2023 Adult ADHD (ICD-10 - F90.9) Client reports this dose has been doing better for her- will continue. 01/17/2024 Adult ADHD (ICD-10 - F90.9) 06/07/2024 Adult ADHD (ICD-10 - F90.9) 02/29/2024 Adult ADHD (ICD-10 - F90.9) 01/27/2024 Adult ADHD (ICD-10 - F90.9) 02/29/2024 Obesity (ICD-10 - E66.9) Continue working with PCP. Encouraged healthy diet and exercise. 06/07/2024 Obesity (ICD-10 - E66.9) Continue working with PCP. Encouraged healthy diet and exercise. 01/17/2024 Obesity (ICD-10 - E66.9) Phentermine previously stopped. DIscussed with client that being on two stimulants is not recommended by this provider and phentermine cannot be restarted. Also discussed that being on BZD is not recommended and will need to work on weaning down. Client is not agreeable to this at this time. Discussed to take as needed as toelrated to help with wean. Education provided, client reports understanding. Questions answered. 10/19/2023 Obesity (ICD-10 - E66.9) Phentermine previously stopped. DIscussed with client that being on two stimulants is not recommended by this provider and phentermine cannot be restarted. Also discussed that being on BZD is not recommended and will need to work on weaning down. Client is not agreeable to this at this time. Discussed to take as needed as toelrated to help with wean. Education provided, client reports understanding. Questions answered. 2024 Obesity (ICD-10 - E66.9) Continue working with PCP. Encouraged healthy diet and exercise. 07/05/2024 Obesity (ICD-10 - E66.9) Continue working with PCP. Encouraged healthy diet and exercise. 07/05/2024 Medication monitoring encounter (ICD-10 - Z51.81) 2024 Medication monitoring encounter (ICD-10 - Z51.81) 10/19/2023 Medication monitoring encounter (ICD-10 - Z51.81) 01/17/2024 Medication monitoring encounter (ICD-10 - Z51.81) 06/07/2024 Medication monitoring encounter (ICD-10 - Z51.81) 02/29/2024 Medication monitoring encounter (ICD-10 - Z51.81) 10/19/2023 Other Reasons, potential benefits, potential risks, interactions and side effects of all medications were discussed. The Patient/Guardian asked appropriate questions, appeared to understand the answers, and decided to accept the treatment and continue being followed. Alternatives and expected course without treatment were reviewed. The Patient/Guardian is aware of the need to contact the office or return for an earlier appointment if any problems or concerns arise. May also contact the 24-hour crisis hotline ([facility]), refer to the closest emergency room or call 911 if new symptoms arise of existing symptoms worsen. The Patient/Guardian is aware that this would apply to symptoms like: suicidal ideation, homicidal ideation, high risk behaviors, manic symptoms, psychotic symptoms, physical symptoms, or any other symptoms that may be dangerous to self or others. Greater than 50% of time spent on coordination and counseling where psychopharmacology as well as psychotherapeutic interventions were discussed along with review of treatments in the past. Education provided concerning need for adequate hydration. Patient/Guardian verbalized understanding of education, treatment plan and follow up. This session was completed telephonically with client/parental/guardi an consent: Unable to determine movement status, assess appearance, affect, AIMS, or vital signs. 02/29/2024 Other Reasons, potential benefits, potential risks, interactions and side effects of all medications were discussed. The Patient/Guardian asked appropriate questions, appeared to understand the answers, and decided to accept the treatment and continue being followed. Alternatives and expected course without treatment were reviewed. The Patient/Guardian is aware of the need to contact the office or return for an earlier appointment if any problems or concerns arise. May also contact the 24-hour crisis hotline ([facility]), refer to the closest emergency room or call 911 if new symptoms arise of existing symptoms worsen. The Patient/Guardian is aware that this would apply to symptoms like: suicidal ideation, homicidal ideation, high risk behaviors, manic symptoms, psychotic symptoms, physical symptoms, or any other symptoms that may be dangerous to self or others. Greater than 50% of time spent on coordination and counseling where psychopharmacology as well as psychotherapeutic interventions were discussed along with review of treatments in the past. Education provided concerning need for adequate hydration. Patient/Guardian verbalized understanding of education, treatment plan and follow up. This session was completed telephonically with client/parental/guardi an consent: Unable to determine movement status, assess appearance, affect, AIMS, or vital signs. 06/07/2024 Other Reasons, potential benefits, potential risks, interactions and side effects of all medications were discussed. The Patient/Guardian asked appropriate questions, appeared to understand the answers, and decided to accept the treatment and continue being followed. Alternatives and expected course without treatment were reviewed. The Patient/Guardian is aware of the need to contact the office or return for an earlier appointment if any problems or concerns arise. May also contact the 24-hour crisis hotline ([facility]), refer to the closest emergency room or call 911 if new symptoms arise of existing symptoms worsen. The Patient/Guardian is aware that this would apply to symptoms like: suicidal ideation, homicidal ideation, high risk behaviors, manic symptoms, psychotic symptoms, physical symptoms, or any other symptoms that may be dangerous to self or others. Greater than 50% of time spent on coordination and counseling where psychopharmacology as well as psychotherapeutic interventions were discussed along with review of treatments in the past. Education provided concerning need for adequate hydration. Patient/Guardian verbalized understanding of education, treatment plan and follow up. This session was completed telephonically with client/parental/guardi an consent: Unable to determine movement status, assess appearance, affect, AIMS, or vital signs. 01/17/2024 Other Reasons, potential benefits, potential risks, interactions and side effects of all medications were discussed. The Patient/Guardian asked appropriate questions, appeared to understand the answers, and decided to accept the treatment and continue being followed. Alternatives and expected course without treatment were reviewed. The Patient/Guardian is aware of the need to contact the office or return for an earlier appointment if any problems or concerns arise. May also contact the 24-hour crisis hotline ([facility]), refer to the closest emergency room or call 911 if new symptoms arise of existing symptoms worsen. The Patient/Guardian is aware that this would apply to symptoms like: suicidal ideation, homicidal ideation, high risk behaviors, manic symptoms, psychotic symptoms, physical symptoms, or any other symptoms that may be dangerous to self or others. Greater than 50% of time spent on coordination and counseling where psychopharmacology as well as psychotherapeutic interventions were discussed along with review of treatments in the past. Education provided concerning need for adequate hydration. Patient/Guardian verbalized understanding of education, treatment plan and follow up. This session was completed telephonically with client/parental/guardi an consent: Unable to determine movement status, assess appearance, affect, AIMS, or vital signs. 07/05/2024 Other Reasons, potential benefits, potential risks, interactions and side effects of all medications were discussed. The Patient/Guardian asked appropriate questions, appeared to understand the answers, and decided to accept the treatment and continue being followed. Alternatives and expected course without treatment were reviewed. The Patient/Guardian is aware of the need to contact the office or return for an earlier appointment if any problems or concerns arise. May also contact the 24-hour crisis hotline ([facility]), refer to the closest emergency room or call 911 if new symptoms arise of existing symptoms worsen. The Patient/Guardian is aware that this would apply to symptoms like: suicidal ideation, homicidal ideation, high risk behaviors, manic symptoms, psychotic symptoms, physical symptoms, or any other symptoms that may be dangerous to self or others. Greater than 50% of time spent on coordination and counseling where psychopharmacology as well as psychotherapeutic interventions were discussed along with review of treatments in the past. Education provided concerning need for adequate hydration. Patient/Guardian verbalized understanding of education, treatment plan and follow up. This session was completed telephonically with client/parental/guardi an consent: Unable to determine movement status, assess appearance, affect, AIMS, or vital signs. 2024 Other Reasons, potential benefits, potential risks, interactions and side effects of all medications were discussed. The Patient/Guardian asked appropriate questions, appeared to understand the answers, and decided to accept the treatment and continue being followed. Alternatives and expected course without treatment were reviewed. The Patient/Guardian is aware of the need to contact the office or return for an earlier appointment if any problems or concerns arise. May also contact the 24-hour crisis hotline ([facility]), refer to the closest emergency room or call 911 if new symptoms arise of existing symptoms worsen. The Patient/Guardian is aware that this would apply to symptoms like: suicidal ideation, homicidal ideation, high risk behaviors, manic symptoms, psychotic symptoms, physical symptoms, or any other symptoms that may be dangerous to self or others. Greater than 50% of time spent on coordination and counseling where psychopharmacology as well as psychotherapeutic interventions were discussed along with review of treatments in the past. Education provided concerning need for adequate hydration. Patient/Guardian verbalized understanding of education, treatment plan and follow up. This session was completed telephonically with client/parental/guardi an consent: Unable to determine movement status, assess appearance, affect, AIMS, or vital signs. Plan Of Treatment No Information Insurance Providers Payer Name Payer Address Payer Phone Subscriber Number Group Number Insured Name Patient Relationship to Insured Coverage Start Date Coverage End Date MEDICARE PART A [address] [place] [phone] [id number] Aron dunneMargarette Self - patient is the insured 0 MEDICAID [address] [place] [phone] [id number] Aron Margarette dunne Self - patient is the insured 0 Medical (General) History Medical History History ICD Code Hypothyroidism Surgical History Surgery Date(Month/Year) Hospitalization History Reason Date(Month/Year)
--- OUTSIDE RECORDS SUMMARY | 2024-10-18 12:23 | XMS_ITS | Encounter Summary ---
Author Organization [facility] Address [address] [place] [address] Care Team Providers Care Compensation Specialist Name Role Phone Unavailable Primary Care Provider Unavailabl e Encounter Details Date Type Department Care Team (Late st Contact Info) Description 05/17/2024 Lab Requisition [facility] - DermPath Lab [address] [place] [address] Peace Lynn, [facility] [address] [place] [phone] Melanocytic nevi of other parts of face; Other pruritus; Other specified erythematous conditions Social History Tobacco Use Types Packs/Day Years Used Date Smoking Tobacco: Never Assessed Sex and Gender Information Value Date Recorded Sex Assigned at Not on file Gender Identity Not on file Sexual Orientation Not on file documented as of this encounter Plan of Treatment Not on file documented as of this encounter Procedures Procedure Name Priority Date/Time Associated Diagnosis Comments DERMATOPATHOLOGY Routine 05/17/2024 12:0 0 AM CDT Melanocytic nevi of other parts of face Other pruritus Other specified erythematous conditions documented in this encounter Results * DERMATOPATHOLOGY (05/17/2024 12:00 AM CDT) Case Report Dermatopathology Report ? Case: [id number] ? Authorizing Provider: ??Leah, Peace, ? Collected: ? 05/17/2024 12:00 AM ? ELASTIC TAPE INSERTER-EXCELLENCE LEADER ? Ordering Location: ? [facility] - ??Received: ?05/18/2024 04:20 PM ? DermPath Lab ? Pathologist: ? Carleen Childs M, MD ? Specimen: ?Skin, right scalp ? 4 1:10 PM CDT DERMATOPATHOLOGY LABORATORY Final Diagnosis Specimen A. SKIN, right scalp: INTRADERMAL MELANOCYTIC NEVUS (D22.4) 1:10 PM CDT DERMATOPATHOLOGY LABORATORY Clinical History Irritated nevus 1:10 PM CDT DERMATOPATHOLOGY LABORATORY Gross Description Specimen A: Received is one formalin filled container labeled with the patients name and designated right scalp. The specimen consists of a shave removal measuring 7x6x3 mm. Jar 0. 1:10 PM CDT DERMATOPATHOLOGY LABORATORY Microscopic Description Specimen A. SKIN, right scalp: There are nests of cytologically bland melanocytes within the dermis that mature with depth. 1:10 PM CDT DERMATOPATHOLOGY LABORATORY Disclaimer An external and internal positive and negative controls are appropriate for the histochemical, immunohistochemical and immunofluorescence stain(s) in this case (if any), except where stated explicitly. The performance characteristics of the stain(s) cited in this report were developed and its performance characteristic determined by the Dermatopathology Laboratory at [facility], directed by Dr. Katrin Squires. These tests need not be, and therefore are not, approved by the [place] Food and Drug Administration. The tests are used for clinical purposes. Billing Codes Specimen Charges Stain Charges 08532 1 1:10 PM CDT DERMATOPATHOLOGY LABORATORY Embedded Images 1:10 PM CDT DERMATOPATHOLOGY LABORATORY Pathology/Cytolog y TISSUE SPECIMEN FROM SKIN / Unknown 05/17/2024 05/18/2024 4:20 PM CDT Peace Lynn APRN-EXCELLENCE LEADER LAB - PATH OLOGY/CYTOLOGY ORDERABLES DERMATOPATHOLOGY LABORATORY [facility] - Department of Dermatology [address] [phone] documented in this encounter Visit Diagnoses Diagnosis Melanocytic nevi of other parts of face Other pruritus Other specified erythematous conditions documented in this encounter
--- OUTSIDE RECORDS SUMMARY | 2024-10-18 12:24 | XMS_ITS ---
Author Organization [facility] Address [address] [place] [address] Care Team Providers Care Radio Script Writer Name Role Phone Selina Anaya Primary Care Provider Cherie Piña Unavailable [phone] Allergies Allergen (clinical drug ingredient) Drug/Non Drug Allergy documented on EMR Reaction Allergy Type Onset Date Status PENICILLIN itching Drug Allergy Active REASON FOR VISIT 3 month f/u Medications Medication SIG (Take, Route, Frequency, Duration) Notes Start Date End Date Status Adderall 20 MG 1 tablet Orally Thre e times daily for 30 days 04/11/2024 Active Rexulti 2 mg 1 tablet oral once d aily for 30 days Active Zolpidem Tartrate 10MG 1 tablet at bedti me as needed Orally Once a day for 30 days 06/07/2024 Active PROzac 20MG 1 capsule Orally Onc e a day for 30 days Active KlonoPIN 1 MG 1 tablet Orally up t o three times daily as needed for 30 days 06/07/2024 Active Levothyroxine Sodium 50 MCG 1 tablet in the morning on an empty stomach Orally Once a day for 30 days Active Vitamin D (Ergocalciferol) 63163UYM TAKE 1 CAPSULE BY MOUTH ONCE A MONTH DIRECTED Active Cyanocobalamin 1000 MCG/ML as directed I njection Weekly Active Rexulti 2 mg 1 tablet oral once d aily for 30 days Active Trulicity Active Adderall 20 MG 1 tablet Orally Thre e times daily for 30 days 06/07/2024 Active Social History Sex Assigned At : Social History Observation Description Sex Assigned At Female Encounters Encounter Location Date Provider Diagnosis [facility] [address] [place] [address] 06/07/2024 Selina Anaya Anxiety disorder F41.9 ; Major depression, chronic F32.9 ; Adult ADHD F90.9 ; Obesity E66.9 and Medication monitoring encounter Z51.81 Assessments Encounter Date Diagnosis (ICD Code) Assessment Notes Treatment Notes Treatment Clinical Notes Section Notes 06/07/2024 Anxiety disorder (ICD-10 - F41.9) continue [...] and a host of perceptual changes. 06/07/2024 Major depression, chronic (ICD-10 - F32.9) 06/07/2024 Adult ADHD (ICD-10 - F90.9) 06/07/2024 Obesity (ICD-10 - E66.9) Continue working with PCP. Encouraged healthy diet and exercise. 06/07/2024 Medication monitoring encounter (ICD-10 - Z51.81) 06/07/2024 Other Reasons, potential benefits, potential risks, [...] AIMS, or vital signs. Plan Of Treatment Medication Medication Name Sig Start Date Stop Date Notes Rexulti 2 mg 1 tablet oral once d aily for 30 days Zolpidem Tartrate 10MG 1 tablet at bedti me as needed Orally Once a day for 30 days 06/07/2024 PROzac 20MG 1 capsule Orally Onc e a day for 30 days KlonoPIN 1 MG 1 tablet Orally up t o three times daily as needed for 30 days 06/07/2024 Adderall 20 MG 1 tablet Orally Thre e times daily for 30 days 06/07/2024 Treatment Notes Assessment Notes Anxiety disorder continue at this time. encouraged therapy. discussed [...] stiffness, and a host of perceptual changes. Obesity Continue working wit h PCP. Encouraged healthy diet and exercise. Other Reasons, potential benefits, potential risks, interactions [...] May also contact the 24-hour crisis hotline ([facility]), refer to the closest emergency room or [...] up. This session was completed telephonically with client/parental/guardian consent: Unable to determine movement status, assess appearance, affect, AIMS, or vital signs. Next Appt Details Follow Up: 4 Weeks, Reason: F/U for Psych s/p Surgery Progress Notes * Shelly NELSONB: 9[birth year] (38 yo F)Acc No.[id number]:06/07/2024 Patient:?Margarette NELSON Provider:?Selina Anaya, MSN, RN TRAVELING, MECHANIC RECOVERY- C :1985???Age:38 Y???Sex:Female D ate:06/07/2024 [address] [facility] Subjective: * Chief Complaints: * ???3 month f/u * HPI: ???Depression Screening:?PHQ-9?Little interest or pleasure in doing things?Several days,?Feeling down, depressed, or hopeless?Several days,?Trouble falling or staying asleep, or sleeping too much?Not at all,?Feeling tired or having little energy?Several days,?Poor appetite or overeating?Several days,?Feeling bad about yourself or that you are a failure, or have let yourself or your family down?Not at all,?Trouble concentrating on things, such as reading the newspaper or watching television?Not at all,?Moving or speaking so slowly that other people could have noticed; or the opposite, being so fidgety or restless that you have been moving around a lot more than usual?Not at all,?Thoughts that you would be better off or of hurting yourself in some way?Not at all,?Total Score?4,?Interpretation?Minimal Depression.?Screening:?Deuel Suicide Severity Rating Scale (LF)?Do you want to initiate with?Screener form,?1. Wish to be : Have you wished you were or wished you could go to sleep and not wake up??No,?2. Suicidal Thoughts: Have you actually had any thoughts of killing yourself??No,?6. Suicide Behaviour: Have you ever done anything,started to do anything, or prepared to end your life??No,?Interpretation:?Low Risk.?CSSRS Interpretation and Follow Up Plan:?CSSRS Interpretation and Follow Up Plan. ?CSSRS Interpretation and Follow Up Plan?CSSRS Screen documented using SF?Yes,?Moderate or High risk requires selection of a follow up plan?CSSRS No/Low: intervention not needed at this time.?Psychiatric Assessment - Current Symptoms:? How ct. doing today? Client is a 38 yo F on the phone today reporting she is doing fair. Reports she is going to be getting the gastic sleeve done on June 28. States she is excited for this to begin.? States she is doing well [id number]. Mentally preparing for the surgery, talking with the optical manufacturing technician, stocking up on protein shakes. ? Depression: 2-11/26? Anxiety: Normally through the roof since new things are happening and coming up, high, but manageable with the medicine. ? Anger/irritability: Denies? Concentration: Good with medication? Hallucinations/paranoia: Denies? Drugs/ETOH: Denies? Social: Staying busy, talking with people, cleaning houses. ? Denies SI/HI. * ROS:?Psych ROS:?Constitutional?Denies.?Eyes?Denies.?Ears/Nose/Mouth/Throat?Denies.?Respirat ory?Denies.?Allergic /Immunologic?Denies.?Cardiovascular?Denies.?GI?Denies.??Denies.?Musculoskeleta l?Denies.?Ne u rological?Denies.?Integumentary?Denies.?Endocrine?Denies.?Hematological/Lymphati c?Denies.?Psychiatric: Denies SI/HI. * Medical History:? * Surgical History:? * Hospitalization/Major Diagno stic Procedure:? * Family History:?Father: dece ased.?Mother: alive.?1 brother(s) , 1 sister(s) - healthy. 2 son(s) , 1 daughter(s) - healthy. .? mother- HTN, depression, anxiety father age 64 lung cancer self- depression, anxiety sister- depression, anxiety. * Social History:?Primary Social History:?Living Arrangement?Living Arrangement:?Independent Living herself and her 3 kids in a house,?Is this a supportive environment??Yes.?Alcohol Use?Alcohol Use Frequency:?Monthly or less.?Illicit Substance Usage?Illicit Substance Usage:?Yes,?Substance Used:?Cannabis,?Frequency Cannabis is used:? 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 * Medications:?TakingRexulti 2 mg tablet 1 tablet oral once daily Trulicity Cyanocobalamin 1000 MCG/ML Liquid as directed Injection Weekly Levothyroxine Sodium 50 MCG Tablet 1 tablet in the morning on an empty stomach Orally Once a day Vitamin D (Ergocalciferol) 92133XFN Capsule TAKE 1 CAPSULE BY MOUTH ONCE A MONTH DIRECTED KlonoPIN 1 MG Tablet 1 tablet Orally up to three times daily as needed Zolpidem Tartrate 10MG Tablet 1 tablet at bedtime as needed Orally Once a day PROzac 20MG Capsule 1 capsule Orally Once a day Rexulti 2 mg tablet 1 tablet oral once daily Adderall 20 MG Tablet 1 tablet Orally Three times daily Medication List reviewed and reconciled with the patientTaking Rexulti 2 mg tablet 1 tablet oral once daily Taking Trulicity Taking Cyanocobalamin 1000 MCG/ML Liquid as directed Injection Weekly Taking Levothyroxine Sodium 50 MCG Tablet 1 tablet in the morning on an empty stomach Orally Once a day Taking Vitamin D (Ergocalciferol) 16806XVL Capsule TAKE 1 CAPSULE BY MOUTH ONCE A MONTH DIRECTED Taking KlonoPIN 1 MG Tablet 1 tablet Orally up to three times daily as needed Taking Zolpidem Tartrate 10MG Tablet 1 tablet at bedtime as needed Orally Once a day Taking PROzac 20MG Capsule 1 capsule Orally Once a day Taking Rexulti 2 mg tablet 1 tablet oral once daily Taking Adderall 20 MG Tablet 1 tablet Orally Three times daily Medication List reviewed and reconciled with the patient * Allergies:?PENICILLIN: remy gallo[Allergies Verified] Objective: * Vitals:? weight is 229.7 lbs per client. * Examination: ???Mental Status Exam: ?SENSORIUM AND COGNITION? Alert, Oriented to Person, Oriented to Place, Oriented to Time, Oriented to Situation.?ATTENTION AND CONCENTRATION? No deficits.?ATTITUDE AND BEHAVIOR? Cooperative, Receptive.?MEMORY? Immediate, Recent, Remote.?MOOD? Euthymic.?SPEECH QUANTITY? Appropriate.?SPEECH QUALITY? Appropriate volume.?THOUGHT PROCESS? Coherent and goal directed.?THOUGHT CONTENT? Appropriate - WNL.?MOTOR ACTIVITY?Denies abnormal movements or tics , Phone interview..?SUICIDAL IDEATION? Denies suicidal ideation.?HOMICIDAL IDEATION? Denies homicidal ideation.?HALLUCINATIONS? Denies hallucinations.?INSIGHT?Fair.?JUDGMENT?Fair.?FUND OF KNOWLEDGE?Good.?ABILITY TO PARTICIPATE IN TREATMENT?Moderate.?WILLINGNESS TO PARTICIPATE IN TREATMENT?Moderate.?Exam limited due to telephone encounter. Assessment: * Assessment: 1.?Anxiety disorder - F41.9 (Primary)???2.?Major depression, chronic - F32.9???3.?Adult ADHD - F90.9???4.?Obesity - E66.9???5.?Medication monitoring encounter - Z51.81??? Plan: * Treatment: 2.?Major depression, chronic ? Refill PROzac Capsule, 20MG, 1 capsule, Orally, Once a day, 30 days, 30 Capsule, Refills 0;?Refill Rexulti tablet, 2 mg, 1 tablet, oral, once daily, 30 days, 30, Refills 0.?? 3.?Adult ADHD? Refill Adderall Tablet, 20 MG, 1 tablet, Orally, Three times daily, 30 days, 90, Refills 0.?? 4.?Obesity? Notes: Continue working with PCP. Encouraged healthy diet and exercise. ?? 5.?Others? Notes: Reasons, potential benefits, potential risks, interactions and [...] May also contact the 24-hour crisis hotline ([facility]), refer to the closest emergency room or [...] up. This session was completed telephonically with client/parental/guardian consent: Unable to determine movement status, assess appearance, affect, AIMS, or vital signs.?? * Procedure Codes:? * Follow Up:?4 Weeks (Reason: F/U for Psych s/p Surgery) * * Sign off status: Completed true * Provider:?Selina Anaya, MSN, RN TRAVELING, MECHANIC RECOVERY- C Date:?06/07/2024 Generated for Kain gilbert/Jc/eTransmitting on:?10/18/2024 12:23 PM AUTOMOTIVE PAINTER History and Physical Notes * HPI (History of Present Illness) Category Sub-Category Detail Notes Category Not es Depression Screening PHQ-9 Little inte rest or pleasure in doing things: Several days Feeling down, depressed, or hopeless: Se veral days Trouble falling or staying asleep, or sl eeping too much: Not at all Feeling tired or having little energy: S everal days Poor appetite or overeating: Several day s Feeling bad about yourself o r that you are a failure, or have let yourself or your family down: Not at all Trouble concentrating on thi ngs, such as reading the newspaper or watching television: Not at all Moving or speaking so slowly that other people could have noticed; or the opposite, being so fidgety or restless that you have been moving around a lot more than usual: Not at all Thoughts that you would be b jana off or of hurting yourself in some way: Not at all Total Score: 4 Interpretation: Minimal Depression Psychiatric Assessment - Current Symptoms How ct. doing today? Client is a 38 yo F on the phone today reporting she is doing fair. Reports she is going to be getting the gastic sleeve done on June 28. States she is excited for this to begin. States she is doing well [id number]. Mentally preparing for the surgery, talking with the optical manufacturing technician, stocking up on protein shakes. Depression: 2-11/26 Anxiety: Normally through the roof since new things are happening and coming up, high, but manageable with the medicine. Anger/irritability: Denies Concentration: Good with medication Hallucinations/paranoia: Denies Drugs/ETOH: Denies Social: Staying busy, talking with people, cleaning houses. Denies SI/HI. Screening Deuel Suicide Severity Rating Scale (LF) Do you want to initiate with: Screener form ?1. Wish to be : Have yo u wished you were or wished you could go to sleep and not wake up?: No ?2. Suicidal Thoughts: Have you actually had any thoughts of killing yourself?: No ?6. Suicide Behaviour: Have you ever done anything,started to do anything, or prepared to end your life?: No ?Interpretation:: Low Risk Do Not Use CSSRS Interpretation and Follow Up Plan CSSRS Interpretation and Follow Up Plan CSSRS Screen documented using SF: Yes Moderate or High risk requir es selection of a follow up plan: CSSRS No/Low: intervention not needed at this time Examination Category Sub-Category Detail Notes Category Not es Mental Status Exam SENSORIUM AND COGNITION Alert, Oriented to Person, Oriented to Place, Oriented to Time, Oriented to Situation Exam limited due to telephone encounter ATTENTION AND CONCENTRATION No deficits ATTITUDE AND BEHAVIOR Cooperative, Rock Duster tive MEMORY Immediate, Recent, R emote MOOD Euthymic SPEECH QUANTITY Appropriate SPEECH QUALITY Appropriate volume THOUGHT PROCESS Coherent and goal di rected THOUGHT CONTENT Appropriate - WNL MOTOR ACTIVITY Denies abnormal move ments or tics , Phone interview. SUICIDAL IDEATION Denies suicidal idea tion HOMICIDAL IDEATION Denies homicidal radha ation HALLUCINATIONS Denies hallucination s INSIGHT Fair JUDGMENT Fair FUND OF KNOWLEDGE Good ABILITY TO PARTICIPATE IN TREATMENT Mode rate WILLINGNESS TO PARTICIPATE IN TREATMENT Moderate
--- OUTSIDE RECORDS SUMMARY | 2024-10-18 12:24 | XMS_ITS | Clinical Summary ---
Author Organization [facility] Address [address] [place] [address] Care Team Providers Care Tool Grinder Name Role Phone Unavailable Primary Care Provider Unavailabl e Source Comments [facility],non-owned Affiliates and Associated Physician Practices is amultiple site organization consisting of ambulatory clinics and hospital sitesin [place], [place], [place] and [place]. This disclosure is being madepursuant to the Care Everywhere program and may not contain all information available regarding this patient. Last updated 18.[facility] Social History Tobacco Use Types Packs/Day Years Used Date Smoking Tobacco: Never Assessed Sex and Gender Information Value Date Recorded Sex Assigned at Not on file Gender Identity Not on file Sexual Orientation Not on file Plan of Treatment Health Maintenance Due Date Last Done Comments HIV SCREENING 2000 HEPATITIS C SCREENING 09/30/2003 DTAP/TDAP/TD VACCINES (1 - Tdap) 2004 HEPATITIS B VACCINE (1 of 3 - 19+ 3-dose series) 2004 COVID-19 VACCINE (2023-2 5 season) 2024 INFLUENZA VACCINE (#1) 2024 DEPRESSION SCREENING 09/19/2024 MEDICARE AWV ? CALENDAR YEAR 2024 PAP SMEAR 01/25/2026 01/25/2023 ZOSTER VACCINE (1 of 2) 2035 HIB VACCINE Aged Out No longer eligi ble based on patient's age to complete this topic HPV VACCINE Aged Out No longer eligi ble based on patient's age to complete this topic MENINGOCOCCAL (Group B) VACCINE Aged Out No longer eligible based on patient's age to complete this topic MENINGOCOCCAL VACCINE Aged Out No jada ranjana eligible based on patient's age to complete this topic PNEUMOCOCCAL VACCINE Aged Out No long er eligible based on patient's age to complete this topic
--- OUTSIDE RECORDS SUMMARY | 2024-10-18 12:24 | XMS_ITS | Clinical Summary ---
Author Organization [facility] Address [facility] [facility] [place] [address] [place] [address] Care Team Providers Care Product Info Specialist Name Role Phone Ame Thakur GREGORIO Primary Care Provider [phone] Allergies Active Allergy Reactions Criticality Noted Date Comments Penicillins Itching 05/13/2023 Medications levothyroxine (SYNTHROID) 25 MCG tablet Take 1 tablet (25 mcg total) by mouth every morning. Active clonazePAM (KLONOPIN) 1 MG tablet Take 1 tablet (1 mg total) by mouth 3 (three) times daily as needed for Anxiety. Active FLUoxetine (PROZAC) 20 MG capsule Take 1 capsule (20 mg total) by mouth daily. Active Active Problems Problem Noted Date Diagnosed Date Major depressive disorder, single episode, unspe cified 05/13/2023 Hypothyroidism, unspecified 05/13/2023 Encounters Date Type Department Care Team Description 07/21/2024 2:47 PM CDT - 07/21/2024 3:27 PM CDT Emergency [facility] Emergency Services [address] [place] [address] Gene Rivas DO Headache Discharge Disposition: Home or Self Care (Routine Discharge) 07/21/2024 Travel from Last 3 Months Social History Tobacco Use Types Packs/Day Years Used Date Smoking Tobacco: Never Smokeless Tobacco: Never Tobacco Cessation:Counseling Given: Not Answered Comments Unknown Sex and Gender Information Value Date Recorded Sex Assigned at Not on file Legal Sex Female 5:34 PM CDT Gender Identity Not on file Sexual Orientation Not on file Last Filed Vital Signs Vital Sign Reading Time Taken Comments Blood Pressure 115/66 07/21/2024 2:50 PM CDT Pulse 88 07/21/2024 2:50 PM CDT Temperature 36.6 ??C (97.9 ??F) 07/21/2024 2:50 PM CD T Respiratory Rate 18 07/21/2024 2:50 PM CDT Oxygen Saturation 100% 07/21/2024 2:50 PM CDT Inhaled Oxygen Concentration - - Weight 97.1 kg (214 lb) 07/21/2024 2:50 PM CDT Height 170.2 cm (5' 7 ) 07/21/2024 2:50 PM CDT Body Mass Index 33.52 07/21/2024 2:50 PM CDT Plan of Treatment Health Maintenance Due Date Last Done Comments Annual Physical 1988 Hepatitis C 2003 Hepatitis B Vaccines (1 of 3 - 19+ 3-dose series) 2004 Cervical Cancer Screening Pa p with HPV Testing (Age 30 to 64) Every 5 Years 2015 COVID-19 Vaccine (2023-2 5 season) 2024 Influenza Adult (#1) 2024 Cervical Cancer Screening Pa p Smear (Age 30 to 64) Every 3 Years 01/25/2026 01/25/2023 Cervical Cancer Screening wi th HPV 01/25/2026 DTaP, Tdap and Td Vaccines ( 3 - Td or Tdap) 06/25/2032 06/25/2022, 03/04/2020 HPV Vaccines Aged Out No longer eligi ble based on patient's age to complete this topic Meningococcal B Vaccine Aged Out No l onger eligible based on patient's age to complete this topic Meningococcal Vaccine Aged Out No jada ranjana eligible based on patient's age to complete this topic Pneumococcal Vaccine: Pediatrics (0 to 5 Years) and At-Risk Patients (6 to 64 Years) Aged Out No longer eligible b ased on patient's age to complete this topic RSV Immunizations Under 20 Months Aged Out No longer eligible b ased on patient's age to complete this topic Insurance MEDICAID [employer] Care Teams Product Info Specialist Relationship Specialty Start Date End Date Ame Thakur NP [address] [address] PCP - General NURSE PRACTITIONER 05/13/23
--- OUTSIDE RECORDS SUMMARY | 2024-10-18 12:24 | XMS_ITS ---
Author Organization [facility] Address [address] [place] [address] Care Team Providers Care Agricultural Engineering Technicians Name Role Phone Selina Anaya Primary Care Provider Cherie Piña Unavailable [phone] Allergies Allergen (clinical drug ingredient) Drug/Non Drug Allergy documented on EMR Reaction Allergy Type Onset Date Status PENICILLIN itching Drug Allergy Active REASON FOR VISIT 3 Month Psych F/U & Med Refill Medications Medication SIG (Take, Route, Frequency, Duration) Notes Start Date End Date Status Rexulti 2 mg 1 tablet oral once daily for 30 days Not-Taking Adderall 20 MG 1 tablet Orally Thre e times daily for 30 days 12/04/2024 Active Adderall 20 MG 1 tablet Orally Thre e times daily for 30 days 11/06/2024 Active Levothyroxine Sodium 50 MCG 1 tablet in the morning on an empty stomach Orally Once a day for 30 days Active Vitamin D (Ergocalciferol) [id number] TAKE 1 CAPSULE BY MOUTH ONCE A MONTH DIRECTED Active Rexulti 2 mg 1 tablet oral once daily for 30 days Active Cyanocobalamin 1000 MCG/ML as directed I njection Weekly Active Adderall 20 MG 1 tablet Orally Thre e times daily for 30 days 10/09/2024 Active PROzac 20MG 1 capsule Orally Onc e a day for 30 days Active KlonoPIN 1 MG 1 tablet Orally up t o three times daily as needed for 30 days 10/18/2024 Active Zolpidem Tartrate 10MG 1 tablet at bedti mn as needed Orally Once a day for 30 days 10/12/2024 Active Social History Sex Assigned At : Social History Observation Description Sex Assigned At Female Vital Signs Weight 189 lbs 2024 Height 67 in 2024 BMI 29.6 kg/m2 2024 Encounters Encounter Location Date Provider Diagnosis [facility] [place] [address] 2024 Selina Anaya Anxiety disorder F41.9 ; Major depression, chronic F32.9 ; Adult ADHD F90.9 ; Obesity E66.9 and Medication monitoring encounter Z51.81 Assessments Encounter Date Diagnosis (ICD Code) Assessment Notes Treatment Notes Treatment Clinical Notes Section Notes 2024 Anxiety disorder (ICD-10 - F41.9) continue [...] and a host of perceptual changes. 2024 Major depression, chronic (ICD-10 - F32.9) 2024 Adult ADHD (ICD-10 - F90.9) 2024 Obesity (ICD-10 - E66.9) Continue working with PCP. Encouraged healthy diet and exercise. 2024 Medication monitoring encounter (ICD-10 - Z51.81) 2024 Other Reasons, potential benefits, potential risks, [...] May also contact the 24-hour crisis hotline ([facility]), refer to the closest emergency room or [...] Name Sig Start Date Stop Date Notes Adderall 20 MG 1 tablet Orally Thre e times daily for 30 days 12/04/2024 Adderall 20 MG 1 tablet Orally Thre e times daily for 30 days 11/06/2024 Rexulti 2 mg 1 tablet oral once d aily for 30 days Adderall 20 MG 1 tablet Orally Thre e times daily for 30 days 10/09/2024 PROzac 20MG 1 capsule Orally Onc e a day for 30 days KlonoPIN 1 MG 1 tablet Orally up t o three times daily as needed for 30 days 10/18/2024 Zolpidem Tartrate 10MG 1 tablet at bedti me as needed Orally Once a day for 30 days 10/12/2024 Treatment Notes Assessment Notes Anxiety disorder continue [...] May also contact the 24-hour crisis hotline ([facility]), refer to the closest emergency room or [...] vital signs. Next Appt Details Follow Up: 3 Months, Reason: Psych F/U in-office Progress Notes * Shelly NELSONB: 986 (39 yo F)Acc No.[id number]:[id number] Patient:?Margarette NELSON Provider:?Selina Anaya, MSN, REGIONAL TANKER TRUCK DRIVER, REGISTERED PHLEBOTOMIST PART TIME- C :1985???Age:39 Y???Sex:Female D ate:2024 [facility] Subjective: * Chief Complaints: * ???3 Month Psych F/U & Med R efill * HPI: ???Depression Screening:?PHQ-9?Little interest or pleasure [...] yourself in some way?Not at all,?Total Score?4,?Interpretation?Minimal Depression.?Screening:?[place] Suicide Severity Rating Scale (LF)?Do you want [...] Follow Up Plan:?CSSRS Interpretation and Follow Up Plan?CSSRS Screen documented using SF?Yes,?Risk Disposition from SF?Low - No Follow Up Plan Required,?Follow Up Plan?No Follow Up Plan required at this time..?Psychiatric Assessment - Current Symptoms:? How ct. doing today? Client is a 39 yo F and today [birth year] her birthday. States she has lost 40 pounds so far and continues working on her appetite s/p surgery. This has been over the past 3 months. Reports that she has on Evotec today which has made her happy.? Goals: Going to the gym, got a membership, but hasn't been? 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 Depression: -02/26 Anxiety: Depends on the day and what is going on. ? Sleep: Good once I take my Ambien, cannot sleep without it really. ? Energy: A lot better. Anger/irritable: Irritable at times? Drugs/ETOH: Denies? Hallucinations/paranoia:? Medical: Found a lump on my breast, so I have a mammogram on the . ? Therapy: Denies, not currently? Reports taking her medications well, stopped Rexulti due to cost and fatigue, states doing well without it, I think I am okay with them. ? Denies SI/HI. 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 * Medications:?TakingCyanocoba kelsey 1000 MCG/ML Liquid as directed Injection Weekly Levothyroxine Sodium 50 MCG Tablet 1 tablet in the morning on an empty stomach Orally Once a day Vitamin D (Ergocalciferol) [id number] Capsule TAKE 1 CAPSULE BY MOUTH ONCE A MONTH DIRECTED KlonoPIN 1 MG Tablet 1 tablet Orally up to three times daily as needed Zolpidem Tartrate 10MG Tablet 1 tablet at bedtime as needed Orally Once a day PROzac 20MG Capsule 1 capsule Orally Once a day Adderall 20 MG Tablet 1 tablet Orally Three times daily Taking Cyanocobalamin 1000 MCG/ML Liquid as directed Injection Weekly Taking Levothyroxine Sodium 50 MCG Tablet 1 tablet in the morning on an empty stomach Orally Once a day Taking Vitamin D (Ergocalciferol) [id number] Capsule TAKE 1 CAPSULE BY MOUTH ONCE A MONTH DIRECTED Taking KlonoPIN 1 MG Tablet 1 tablet Orally up to three times daily as needed Taking Zolpidem Tartrate 10MG Tablet 1 tablet at bedtime as needed Orally Once a day Taking PROzac 20MG Capsule 1 capsule Orally Once a day Taking Adderall 20 MG Tablet 1 tablet Orally Three times daily Not-TakingRexulti 2 mg tablet 1 tablet oral once daily Not-Taking Rexulti 2 mg tablet 1 tablet oral once daily DiscontinuedTrulicity Medication List reviewed and reconciled with the patientDiscontinued Trulicity Medication List reviewed and reconciled with the patient * Allergies:?PENICILLIN: itchi ngno[Allergies Verified] Objective: * Vitals:?Wt:189, Ht: 67, BMI: 29.6. * Examination: ???Mental Status Exam: ?SENSORIUM AND [...] a day, 30 days, 30 Capsule, Refills 2;?Refill Rexulti tablet, 2 mg, 1 tablet, oral, once daily, 30 days, 30, Refills 2.?? 3.?Adult ADHD? Refill Adderall Tablet, 20 MG, 1 tablet, Orally, Three times daily, 30 days, 90, Refills 0;?Refill Adderall Tablet, 20 MG, 1 tablet, Orally, Three times daily, 30 days, 90, Refills 0;?Refill Adderall Tablet, 20 MG, 1 tablet, Orally, [...] May also contact the 24-hour crisis hotline ([facility]), refer to the closest emergency room or [...] vital signs.?? * Procedure Codes:? * Follow Up:?3 Months (Reason: Psych F/U in-office) * * MATIC PROFILE SHAPER OPERATOR Sign off status: Completed true * Provider:?Selina Anaya, MSN, REGIONAL TANKER TRUCK DRIVER, REGISTERED PHLEBOTOMIST PART TIME- C Date:?2024 Generated for Kain gilbert/Jc/Marilee on:?10/18/2024 12:24 PM AUTOMATIC PROFILE SHAPER OPERATOR History and Physical Notes * HPI (History [...] How ct. doing today? Client is a 39 yo F and today is her birthday. States she has lost 40 pounds so far and continues working on her appetite s/p surgery. This has been over the past 3 months. Reports that she has on Evotec today which has made her happy. 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 Sleep: Good once I take my Ambien, cannot sleep without it really. Energy: A lot better. Anger/irritable: Irritable at times Drugs/ETOH: Denies Hallucinations/paranoia: Medical: Found a lump on my breast, so I have a mammogram on the . Therapy: Denies, not currently Reports taking her medications well, stopped Rexulti due to cost and fatigue, states doing well without it, I think I am okay with them. Denies SI/HI. Screening [place] Suicide Severity Rating Scale (LF) Do you [...] end your life?: No ?Interpretation:: Low Risk CSSRS Interpretation and Follow Up Plan CSSRS Interpretation and Follow Up Plan CSSRS Screen documented using SF: Yes Risk Disposition from SF: Low - No Follo w Up Plan Required Follow Up Plan: No Follow Up Plan requir ed at this time. Examination Category Sub-Category Detail Notes Category Not es Mental Status Exam SENSORIUM AND COGNITION Alert, Oriented to Person, Oriented to Place, Oriented to Time, Oriented to Situation Exam limited due to telephone encounter ATTENTION AND CONCENTRATION No deficits ATTITUDE AND BEHAVIOR Cooperative, Medical Assistant Instructor tive MEMORY Immediate, Recent, R emote MOOD [...]
--- OUTSIDE RECORDS SUMMARY | 2024-10-18 12:24 | XMS_ITS | Referral Summary ---
Author Organization [facility] Address [address] [place] [address] Care Team Providers Care Retort Unloader Name Role Phone Unavailable Primary Care Provider Unavailabl e Source Comments [facility],non-owned Affiliates and Associated Physician Practices is amultiple site organization consisting of ambulatory clinics and hospital sitesin [place], [place], [place] and [place]. This disclosure is being madepursuant to the Care Everywhere program and may not contain all information available regarding this patient. Last updated 18.[facility] Social History Tobacco Use Types Packs/Day Years Used Date Smoking Tobacco: Never Assessed Sex and Gender Information Value Date Recorded Sex Assigned at Not on file Gender Identity Not on file Sexual Orientation Not on file Plan of Treatment Not on file
--- OUTSIDE RECORDS SUMMARY | 2024-10-18 12:24 | XMS_ITS | Clinical Summary ---
Author Organization [facility] Address [address], [facility] [address] [place] [address] Phone Care Team Providers Care Data Mining Analyst Name Role Phone Provider, None Primary Care Provider Unavailabl e Allergies Active Allergy Reactions Criticality Noted Date Comments Penicillins Rash 07/28/2016 Medications Phentermine HCl 37.5 MG Capsule Take 1 Cap by mouth daily. Active FLUoxetine HCl (PROZAC PO) Take by mouth. 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 Not on file Not on file Not on file Last Filed Vital Signs Vital Sign Reading Time Taken Comments Blood Pressure 102/50 07/28/2016 12:08 PM CLINICAL STAFF EDUCATOR Pulse 69 07/28/2016 10:37 AM CLINICAL STAFF EDUCATOR Temperature 36 ??C (96.8 ??F) 07/28/2016 12:08 PM CLINICAL STAFF EDUCATOR Respiratory Rate 12 07/28/2016 12:08 PM CLINICAL STAFF EDUCATOR Oxygen Saturation 100% 07/28/2016 12:08 PM CLINICAL STAFF EDUCATOR Inhaled Oxygen Concentration - - Weight 89.4 kg (197 lb) 07/27/2016 9:00 AM CLINICAL STAFF EDUCATOR Height 170.2 cm (5' 7 ) 07/27/2016 9:00 AM CLINICAL STAFF EDUCATOR Body Mass Index 30.85 07/27/2016 9:00 AM CLINICAL STAFF EDUCATOR Plan of Treatment Health Maintenance Due Date Last Done Comments Hepatitis C Virus (HCV) Screening 1985 TdaP Immunization 1985 Hepatitis B Immunization (1 of 3 - 19+ 3-dose series) 2004 Pap Smear 2006 Cervical Cancer Screening (CCS) 2015 HPV/Cotest 2015 Influenza Immunization (#1) 2024 SARS-COV-2 Immunization ( - 2023-25 season) 2024 Respiratory Syncytial Virus (RSV) Immunization (Adult) (1 - 1-dose 75+ series) 2060 Meningococcal Immunization (ACWY) Aged Out No longer eligible based on patient's age to complete this topic Pneumococcal Immunization Combined Aged Out No longer eligible based on patient's age to complete this topic Rotavirus Immunization Aged Out No lo nger eligible based on patient's age to complete this topic Insurance MEDICAID [employer] Care Teams Data Mining Analyst Relationship Specialty Start Date End Date Provider, None [place] PCP - General 07/26/16
--- OUTSIDE RECORDS SUMMARY | 2024-10-18 12:24 | XMS_ITS | CONTINUITY OF CARE DOCUMENT ---
Author Name leslie, leslie Address Unknown Organization [facility] Address [address] [place] [address] Phone [phone] Care Team Providers Care Color Adviser Name Role Phone Will Byrd MD Unavailable [phone] AKOSUA CASTANEDA MD Unavailable PROBLEMS Condition Status Date Provider Notes ANXIETY DISORDER GENERALIZED active Greg toth MD CHEST PAIN-06/28 NUC NL active ? Mik Brownlee ENCOUNTERS Date Type Provider Location Encounter Diag nosis - In-person encounter Office Visit Arpan Reagan [place] [facility] - In-person encounter Office Visit Greg Mendiola MD [place] [facility] CHEST PAIN-06/28 NUC NLANXIETY DISORDER GENERALIZED VITAL SIGNS Date Observation Value Provider blood pressure, diastolic, left arm 66 mm [Hg] Mik Lloyd RN blood pressure, systolic, left arm 110 mm [Hg] Mik Lloyd RN blood pressure, diastolic, right arm 70 m m[Hg] Mik Lloyd RN blood pressure, systolic, right arm 102 m m[Hg] Mik Lloyd RN blood pressure, diastolic 66 mm[Hg] Donny Lloyd RN blood pressure, systolic 110 mm[Hg] Mik Lloyd RN pulse rate 61 /min Mik Lloyd RN oxygen saturation, oximetry 99 % Mik Lloyd RN respiratory rate E&M 16 /min Mik meredith RN weight E&M 215 [lb_av] Mik Lloyd RN HISTORY OF MEDICATION USE Medication Status Instructions Dates Provider Indications Com ments LEXAPRO 20 MG ORAL TABLET active ONE TAB. DAILY Mik Lloyd RN CLONAZEPAM 1 MG ORAL TABLET DISINTEGRATING active twice daily Mik Lloyd RN SOCIAL HISTORY Date Observation Value Provider social history E&M Marital Statu s: Single E thnicity: Mik Lloyd RN social history reviewed E&M reviewed Mik Lloyd RN physical exercise, f requency, days per week yes [employer] caffeine use, averag e drinks per day yes [employer] alcohol use, average drinks per day none [employer] smoking status Non-smoker [employer] MENTAL STATUS Date Observation Value Provider assessment of judgme nt and insight E&M Alert and oriented to time, place and person. Mood and affect are normal. Mik Lloyd RN INSURANCE PROVIDERS Payer name Policy type / Coverage type [place] red libertarian ID [place] MEDICARE Medicare [id number] HEALTHCARE AND FAMILY SERVICES Medicaid 0 [id number] TREATMENT PLAN Date Name Stress Test - Adenos ine Complete Echo
--- OUTSIDE RECORDS SUMMARY | 2024-10-18 12:24 | XMS_ITS | Data Portability ---
Author Organization [facility] RooT, Main Office Address [address] [place] [address] Assessment No assessment recorded. Plan of Treatment Reminders Order Date Submit Date Provider Last Modified By Organization Details Last Modified Time Details Appointments Any 15 2024 01:00P Jessy Martin, CHRIS Not available Not available Not available Lab vitamin D, 25-hydrox y, total, serum 2023 024 [facility] (Lab), [address] [place], [address], 02/16/2024 20:28:22 TSH, serum or plasma 2023 024 [facility] (Lab), [address] [place], [address], 02/16/2024 20:28:21 T4, free, serum 2023 024 [facility] (Lab), [address] [place], [address], 02/16/2024 20:28:21 glycohemo globin, total, blood 2023 024 [facility] (Lab), [address] [place], [address], 02/16/2024 17:31:36 lipid panel, serum 2023 024 [facility] (Lab), [address] [place], [address], 02/16/2024 20:28:21 CBC w/ auto diff 2023 024 [facility] (Lab), [address] [place], [address], 02/16/2024 20:28:21 CMP, serum or plasma 2023 024 [facility] (Lab), [address] [place], [address], 02/16/2024 20:28:22 hepatitis C virus Ab, serum 2023 024 [facility] (Lab), [address] [place], [address], 06/25/2024 20:11:04 Referral sleep medicine referral 2023 024 [facility], [address] [place], [address], 08/13/2024 07:51:45 physical therapist referral - Please call patient to schedule. 2023 024 [facility] (Outpatient Physical Therapy), [address] [place], [address], 08/01/2024 10:09:40 Procedures None recorded. Surgeries None recorded. Imaging home sleep study 2023 024 [email or web address] ([facility] Call Scheduling), [address] [place], [address], 03/29/2024 13:28:09 XR, cervical spine, 2 or 3 view 2023 024 [facility] (One Call Scheduling), [address] [place], [address], 10/09/2024 11:03:26 XR, thoracic spine 2023 024 [facility] (One Call Scheduling), [address] [facility] [place], [address], 10/09/2024 11:03:26 XR, hip + pelvis, bilateral 2023 024 [facility] [[email or web address] (One Call Scheduling), [address] [facility], [place], [address], 09/27/2024 08:36:50 MAMMO, diagnosti c, digital, bilateral - Please call patient to schedule. [address] [facility], [address], [place] [address], [place], [address], 09/26/2024 10:05:22 Medication Orders lidocaine 5 % topical patch 2023 024 [id number], [address], [place], [address], 07/30/2024 12:51:04 Patient TargetsNo targets recorded. Patient Instructions Encounter Date Encounter Id Patient Instructions Last Modified By Organization Details Last Modified Time 02/16/2024 [id number] Follow up in 4 months Obtain labs Obtain sleep study for diagnosis of sleep apnea Not available 02/16/2024 14:51:22 03/19/2024 [id number] Follow up in 4 months Home sleep study You should be in calorie deficit-consuming 1300 maximum to loose 2 pounds per week. [place] weight is 120-160 lbs Consume less carbs and red meat Eat more vegetables and fruit Not available 03/19/2024 15:09:56 06/25/2024 [id number] dementia rating scale-2* ROXIE Not available 06/25/2024 15:06:43 alcohol misuse* Not available 06/25/2024 15:00:55 depression screening* Not available 06/25/2024 15:02:24 Timed Up and Go test (TUG)* Not available 06/25/2024 15:02:24 multi-dimensiona l health assessment questionnaire* Not available 06/25/2024 15:02:23 advance directiv es: care instructions Not available 06/25/2024 15:02:23 advance care planning: care instructions Not available 06/25/2024 15:02:23 [place] Advance Directives Not available 06/25/2024 15:02:24 Follow up in 3 months Obtain lab Recommend: Influenza vaccine Personalized Health Plan and Screening Recommendations Advance Directives - Do you have one? You have indicated that you are capable of preparing your advance care directive Advance Directives - Do we have your advance directive on file in your health record? Primary Prevention/Interven tion (prevents or decreases the chance of common diseases from occurring) Smoking Risk: Non Smoker Alcohol Misuse Screening: Negative Weight: Appropriate Overwei ght continue your current weight loss efforts Physical activity: minimum of 10-20 minutes of activity that causes mild breathlessness/day minimum of 20-30 minutes activity that causes mild breathlessness/day Nutrition: Good Refer to attached handout Heart-Healthy Diet: After Your Visit Refer to attached handout DASH Diet: After Your Visit Fall Risk (screened today): Low Refer to attached handout Preventing Falls: After your Visit Vaccines Pneumococcal: Ordered Recommended today Recommended today, but you have declined No further needed Influenza: Ordered Recommended today Recommended today, but you have declined Chronic Disease Risks Stroke: Low Risk I have no recommendations Heart Attack: Low risk I have no recommendations Clogging of the Arteries: Low risk I have no recommendations Diabetes: Low Risk I have no recommendations Secondary Prevention/Interven tion (detects treatable diseases before they may cause symptoms, disability, or ) Breast Cancer Screening with mammogram: Cervical/Uterine/Ov cecille Cancer Screening: Osteoporosis Screening: Date Screening Last Performed: Colon Cancer Screening: Date Screening Last Performed: Eye Disease Screening: Dementia Risk: Low Depression Screening: Negative Positive Not available 06/25/2024 15:02:20 07/26/2024 [id number] Follow up in September Tests: Complete xrays Referral: Physical therapy referral Recommend: Not available 07/26/2024 09:32:09 09/25/2024 [id number] Follow up in 6 months Obtain labs Tests: Referral: Recommend: Tetanus vaccine Not available 09/25/2024 14:36:28 Reason for Referral Sleep Medicine Referral for Sleep apnea Referring Physician: Bceka Martin, Internal Medicine, Encounter Date: 02/16/2024 Physical Therapist Referral for Neck pain Please call patient to schedule. Referring Physician: Becka Martin Internal Medicine, Encounter Date: 07/26/2024 Results Created Date Observation Date Name Description Value Unit Range Abnormal Flag Note LastModifiedBy Organization Detail LastModifiedTime 03/29/20 24 03/27/2024 home sleep study No observ ation record ed. [facility] (One Call Scheduling) [address] [place], [address], 03/29/2024 13:28:09 03/29/20 24 03/27/2024 home sleep study No observ ation record ed. [facility] (One Call Scheduling) [address] [place], [address], 04/03/2024 13:41:48 09/27/19 25 07/26/2024 XR, cervi efren spine , 4 or 5 view No observ ation record ed. [facility] Not Available 2024 08:36:49 09/27/19 25 07/26/2024 XR, hip + pelvi s, bilat eral No observ ation record ed. [facility] (One Call Scheduling) [address] [place], [address], 09/27/2024 08:36:50 Result Notes None recorded. Problems Name Problem SNOMED Code Status Onset Date Resolution Date Notes Provider Name and Address Organization Details Recorded Time Hypothyro idism 69292190 Active 2022 Becka Martin APRN [address], [place], [address], [facility] 4 10:12:03 Obesity 028917224 Active 2022 Becka Martin APRN [address], [place], [address], [employer] 4 10:12:40 Vitamin B12 deficienc y (non anemic) 51065031 Active 2022 Becka Martin APRN [address], [place], [address], [employer] 4 10:12:32 Hyperlipi demia 52072859 Active 2022 Becka Martin APRN [address], [address], [place], [address], [facility] 4 10:11:58 Mixed anxiety and depressiv e disorder 822189381 Active 2022 Becka Martin APRN [address], [address], [place], [address], [facility] 4 10:12:09 Liver enzymes level above reference range 249558360 Active 2022 Becka Martin APRN [address], [address], [place], [address], [employer] 4 10:13:14 Acne 08074871 Active 2022 Becka Martin APRN [address], [address], [place], [address], [employer] 4 10:12:50 Obstructi ve sleep apnea syndrome 02424095 Active 2023 Becka Martin APRN [address], [address], [place], [address], [employer] 4 10:15:37 Laparosco pic sleeve gastrecto my Active 2023 Becka Martin APRN [address], [address], [place], [address], [facility] 4 09:15:52 Neck pain 74230372 Active 2023 Becka Martin APRN [address], [place], [address], [employer] 4 09:19:28 Pain in pelvis 21466532 Active 2023 Becka Martin APRN [address], [address], [place], [address], [employer] [facility] 4 09:19:37 Mass of left breast 277362926688 43066 Active 2024 Becka Martin APRN [address], [address], [place], [address], [employer] 5 14:24:28 Generaliz ed anxiety disorder 12806672 Completed 202103/26/2024 Becka Martin APRN [address], [address], [place], [address], [employer] 4 16:37:06 Vitamin D deficienc y 63344433 Active 2022 Becka Martin APRN [address], [address], [place], [address], [employer] 4 10:12:36 Attention deficit hyperacti vity disorder, predomina ntly inattenti ve type 95928861 Active 2019 Becka Martin APRN [address], [place], [address], [employer] [facility] 4 10:11:44 Depressiv e disorder 03157938 Completed 201903/26/2024 Becka Martin APRN [address], [place], [address], [employer] 4 16:36:59 Notes:Becka Martin APRN [phone] [facility] home sleep study 03/12/21 AHI = 2 [facility] diagnostic sleep study 05/12/21 AHI = 1, REM AHI = 4 [facility] home sleep study 03/27/24 AHI = 1, supine AHI = 2 Medical History: Acne Depression/Anxiety/ADHD Obesity with mild OSAHS, AHI = 1, 03/27/24 Hypothyroidism Hyperlipidemia Vit B12 deficiency Vit D deficiency Problem Notes None recorded. Procedures Surgical History Date Name Laterality Status Provider Name and Address Organization Details Recorded Time 4 bariatric operative procedure completed Marjorie Dunn MA [facility] 07/26/2024 08:50:37 4 Medicare Wellness CPT Code, subsequent completed Alfredo Khan LPN [facility] 06/25/2024 08:28:39 4 Medicare Wellness CPT Code, Initial completed Becka Martin APRN [address], [place], [address], [employer] 06/22/2024 21:13:53 3 Medicare Wellness CPT Code, subsequent completed ERNESTO Luz-C [address], [place], [address], inexio 04/22/2023 16:34:07 3 Advanced Care Planning completed ERNESTO Luz-C [address], [place], [address], [employer] 04/22/2023 16:39:26 Knee Surgery completed Not Available [facility] 11/17/2022 04:43:03 Imaging Results Imaging Date Name Status LastModified by Organiz ation Details LastModified Time 03/27/2024 home sleep study completed [facility] (One Call Scheduling) [address] [place], [address], 03/29/2024 13:28:09 03/27/2024 home sleep study completed [facility] (One Call Scheduling) [address] [place], [address], 04/03/2024 13:41:48 07/26/2024 XR, cervical spine, 4 or 5 view completed [facility] Information not available 09/27/2024 08:36:49 07/26/2024 XR, hip + pelvis, bilateral completed [facility] (One Call Scheduling) [address] [place], [address], 09/27/2024 08:36:50 Procedure Notes None recorded. Medical Equipment None Reported. Allergies Allergen ID Allergen Name Allergen Category Reaction Reaction Severity Criticality Documentation Date Start Date Code Code System Note Provider Name and Address Organization Details Recorded Time 7703 Product containin g penicilli n and antibioti c (product) medicatio n Not available Not available Not available 11/17/2022 50884 05 SNOMED Not Available [facility] 05:02:41 Medications Name Sig Start Date Stop Date Status Note LastModified by Organization Details LastModified Time doxycycli ne hyclate 100 mg capsule 10/29 completed Not Available Not Available Not Available fluconazo le 150 mg tablet TAKE 1 TABLET BY MOUTH ON DAY 1, THEN TAKE THE SECOND TABLET 3 DAYS AFTER TAKING THE FIRST TABLET completed Not Available Not Available Not Available benzonata te 200 mg capsule Take 1 capsule 3 times a day by oral route as needed. 10/29 completed Not Available Not Available Not Available hydrocodo ne 5 mg-acetam inophen 325 mg tablet TAKE 1 TO 2 TABLETS BY MOUTH EVERY 6 HOURS NEEDED FOR PAIN FOR 3 DAYS. MAX 6 TABS PER DAY 07/26 completed Not Available Not Available Not Available fluconazo le 200 mg tablet 02/05 completed Not Available Not Available Not Available metronida zole 0.75 % (37.5 mg/5 gram) vaginal gel INSERT 1 APPLICAT ORFUL VAGINALL Y ONCE DAILY AT BEDTIME FOR 5 DAYS 02/15 completed Not Available Not Available Not Available dextroamp hetamine- amphetami ne 10 mg tablet 1 po bid completed Not Available Not Available Not Available doxycycli ne hyclate 50 mg capsule TAKE 1 CAPSULE BY MOUTH TWICE A DAY active Not Available Not Available No t Available clonazepa m 1 mg tablet TAKE 1 TABLET BY MOUTH UP TO 3 TIMES A DAY NEEDED active Not Available Not Available No t Available phentermi ne 15 mg capsule TAKE 1 CAPSULE BY MOUTH EVERY DAY FOR 30 DAYS 02/25 completed Not Available Not Available Not Available cyanocoba kelsey (vit B-12) 1,000 mcg tablet Take 1 tablet every day by oral route. 03/26 completed Not Available Not Available Not Available metronida zole 500 mg tablet 02/05 completed Not Available Not Available Not Available phentermi ne 37.5 mg tablet TAKE 1 TABLET BY MOUTH EVERY DAY active Not Available Not Available No t Available butalbita l-acetami nophen-ca ffeine 50 mg-325 mg-40 mg tablet 07/26 completed Not Available Not Available Not Available levothyro xine 25 mcg tablet active Not Available Not Available Not Available nystatin- triamcino lone 100,000 unit/gram -0.1 % topical ointment APPLY TO THE AFFECTED AREA(S) BY TOPICAL ROUTE 2 TIMES PER DAY FOR 5 DAYS 02/15 completed Not Available Not Available Not Available clindamyc in 1 % topical gel APPLY A THIN LAYER TO THE AFFECTED AREA(S) BY TOPICAL ROUTE 2 TIMES PER DAY active Not Available Not Available No t Available cyanocoba kelsey (vit B-12) 500 mcg tablet TAKE 1 TABLET BY MOUTH EVERY DAY 02/15 completed Not Available Not Available Not Available Tylenol 500 mg tablet Take 2 tablets every 6 hours by oral route. active Not Available Not Available No t Available levothyro xine 50 mcg tablet active Not Available Not Available Not Available pantopraz ole 40 mg tablet,de layed release TAKE 1 TABLET BY MOUTH EVERY DAY BEFORE BREAKFAS T active Not Available Not Available No t Available cyanocoba kelsey (vit B-12) 1,000 mcg/mL injection solution Inject 1 mL every week by subcutan eous route. 08/04 completed Not Available Not Available Not Available clotrimaz ole-betam ethasone 1 %-0.05 % topical cream APPLY TO THE AFFECTED AND SURROUND ING AREAS OF SKIN BY TOPICAL ROUTE 2 TIMES PER DAY IN THE MORNING AND EVENING FOR 2 WEEKS active Not Available Not Available No t Available dextroamp hetamine- amphetami ne 20 mg tablet TAKE 1 TABLET BY MOUTH THREE TIMES A DAY active Not Available Not Available No t Available prednison e 50 mg tablet completed Not Available Not Available Not Available lidocaine 5 % topical patch APPLY 1 PATCH BY TOPICAL ROUTE ONCE DAILY (MAY WEAR UP TO 12HOURS. ) 2024 active Not Available Not Available Not Avai lable metronida zole 0.75 % topical cream APPLY A PEA SIZED AMOUNT TO FACE TWICE DAILY active Not Available Not Available No t Available nystatin- triamcino lone 100,000 unit/g-0. 1 % topical cream APPLY TO THE AFFECTED AREA(S) BY TOPICAL ROUTE 2 TIMES PER DAY IN THEMORNI NG AND EVENING PRN 03/26 completed Not Available Not Available Not Available cyanocoba kelsey (vit B-12) 1,000 mcg sublingua l tablet Place 1 tablet every day by sublingu al route. 04/21 completed patient got OTC b12 Not Available Not Available Not Available ergocalci ferol (vitamin D2) 1,250 mcg (50,000 unit) capsule TAKE 1 CAPSULE BY MOUTH ONCE WEEKLY 2023 active Not Available Not Available Not Avai lable zolpidem 10 mg tablet TAKE 1 TABLET BY MOUTH EVERY DAY AT BEDTIME NEEDED FOR 30 DAYS active Not Available Not Available No t Available scopolami ne 1 mg over 3 days transderm al patch APPLY 1 PATCH BEHIND THE EAR AT BEDTIME THE NIGHT BEFORE PROCEDUR E 07/26 completed Not Available Not Available Not Available ondansetr on 4 mg disintegr ating tablet TAKE 1 TABLET BY MOUTH EVERY 4 HOURS NEEDED FOR NAUSEA 07/26 completed Not Available Not Available Not Available fluoxetin e 20 mg capsule TAKE 1 CAPSULE BY MOUTH EVERY DAY FOR 30 DAYS active Not Available Not Available No t Available fluticaso ne propionat e 50 mcg/actua tion nasal spray,dustin pension SPRAY ONE SPRAY INTO EACH NOSTRIL EVERY 12 HOURS NEEDED FOR NASAL CONGESTI ON. 11/20 completed Not Available Not Available Not Available doxycycli ne hyclate 100 mg tablet TAKE 1 TABLET BY MOUTH TWICE A DAY WITH A FULL GLASS OF WATER/FO OD 06/25 completed Not Available Not Available Not Available dicyclomi ne 10 mg capsule TAKE 1 TABLET EVERY 4 HOURS NEEDED active Not Available Not Available No t Available phentermi ne 37.5 mg capsule Take 1 capsule every day by oral route. 10/29 completed Not Available Not Available Not Available dextroamp hetamine- amphetami ne 5 mg tablet 03/26 completed Not Available Not Available Not Available hydroxyzi ne pamoate 25 mg capsule TAKE ONE CAPSULE TWICE DAILY FOR ANXIETY NEEDED 06/26 completed Not Available Not Available Not Available nitrofura ntoin monohydra te/macroc rystals 100 mg capsule 06/25 completed Not Available Not Available Not Available aprepitan t 40 mg capsule TAKE 1 CAPSULE BY MOUTH 3 HOURS BEFORE SURGERY 07/26 completed Not Available Not Available Not Available Trulicity 1.5 mg/0.5 mL subcutane ous pen injector INJECT 1.5 MG SUBCUTAN EOUSLY ONE TIME PER WEEK active Not Available Not Available No t Available Trulicity 0.75 mg/0.5 mL subcutane ous pen injector INJECT THE CONTENTS OF 1 PEN UNDER THE SKIN ONCE WEEKLY active Not Available Not Available No t Available doxycycli ne hyclate 50 mg tablet TAKE 1 TABLET BY MOUTH TWICE A DAY 02/07 completed Not Available Not Available Not Available Rexulti 2 mg tablet TAKE 1 TABLET BY MOUTH EVERY DAY FOR 30 DAYS 07/26 completed Not Available Not Available Not Available Trulicity 3 mg/0.5 mL subcutane ous pen injector INJECT 0.5 ML UNDER THE SKIN ONCE WEEKLY 06/25 completed Not Available Not Available Not Available Paxlovid 300 mg (150 mg x 2)-100 mg tablets in a dose pack PLEASE SEE ATTACHED FOR DETAILED DIRECTIO NS 08/02 completed Not Available Not Available Not Available Vitals Date Recorded Body height Body mass index (BMI) Body weight Body temperature Heart rate Oxygen saturation Oxygen saturation in Arterial blood by Pulse oximetry Systolic blood pressure Diastolic blood pressure Provider Name and Address Organization Details Last Updated DateTime 4 170.18 cm 34.3 kg/m2 80755.7 3 g 97.7 [degF] 66 /min 99 % 99 % 116 mm[Hg] 62 mm[Hg] ONOFRE Cohen [facility] [id number] [facility] 4 14:29:11 Date Recorded Body height Body mass index (BMI) Body weight Body temperature Heart rate Oxygen saturation Oxygen saturation in Arterial blood by Pulse oximetry Systolic blood pressure Diastolic blood pressure Provider Name and Address Organization Details Last Updated DateTime 4 170.18 cm 35.4 kg/m2 937503. 88 g 98.1 [degF] 78 /min 99 % 99 % 108 mm[Hg] 62 mm[Hg] Marjorie Dunn MA [facility] [employer] 4 14:29:33 Date Recorded Body height Body mass index (BMI) Body weight Body temperature Oxygen saturation Oxygen saturation in Arterial blood by Pulse oximetry Heart rate Systolic blood pressure Diastolic blood pressure Provider Name and Address Organization Details Last Updated DateTime 4 170.18 cm 35.9 kg/m2 944925. 65 g 97.2 [degF] 98 % 98 % 94 /min 106 mm[Hg] 62 mm[Hg] Marjorie Dunn MA [facility] [email or web address] [facility] 4 14:39:26 Date Recorded Body height Body mass index (BMI) Body weight Body temperature Heart rate Oxygen saturation Oxygen saturation in Arterial blood by Pulse oximetry Systolic blood pressure Diastolic blood pressure Provider Name and Address Organization Details Last Updated DateTime 4 170.18 cm 33 kg/m2 94366.9 9 g 98.03 [degF] 75 /min 98 % 98 % 110 mm[Hg] 64 mm[Hg] Marjorie Dunn MA [facility] [email or web address] [facility] 4 08:46:47 Date Recorded Body height Body mass index (BMI) Body weight Body temperature Heart rate Oxygen saturation Oxygen saturation in Arterial blood by Pulse oximetry Systolic blood pressure Diastolic blood pressure Provider Name and Address Organization Details Last Updated DateTime 5 170.18 cm 29.9 kg/m2 84625.1 4 g 97.9 [degF] 79 /min 100 % 100 % 108 mm[Hg] 74 mm[Hg] Felipa Butt RN [facility] [email or web address] [facility] 5 14:20:50 Social History Question Answer Notes LastModified by Organizat ion Details LastModified Time Tobacco Smoking Status Never Smoker Not Available [facility] 11/17/2022 04:41:35 Do You Have An Advance Directive? No [id number] Information not available 11/17/2022 What Is Your Level Of Alcohol Consumption? None [id number] Information not available 11/17/2022 What Is Your Level Of Caffeine Consumption? Moderate [id number] Information not available 11/17/2022 How Much Tobacco Do You Chew? None [id number].[id number] Information not available 11/17/2022 In The 14 Days Before Symptom Onset, Have You Had Close Contact With A Laboratory-confi rmed COVID-19 While That Case Was Ill? No [id number] Information not available 11/17/2022 In The 14 Days Before Symptom Onset, Have You Had Close Contact With A Person Who Is Under Investigation For COVID-19 While That Person Was Ill? No [id number].[id number] Information not available 11/17/2022 Are You Currently Employed? No Information not available 07/26/2024 What Type Of Diet Are You Following? REGULAR [id number].[id number] Information not available 11/17/2022 What Is The Highest Grade Or Level Of School You Have Completed Or The Highest Degree You Have Received? [id number] [id number].[id number] [id number] Information not available 11/17/2022 Have There Been Any Changes To Your Family Or Social Situation? No MIGRATION.84954 [id number] Information not available 11/17/2022 What Is The Fluoride Status Of Your Home? Unknown [id number].[id number] Information not available 11/17/2022 Are There Any Guns Present In Your Home? No MIGRATION.51088 20030 Information not available 11/17/2022 Do You Use Insect Repellent Routinely? No MIGRATION.13164 [id number] Information not available 11/17/2022 Where Do You Live? [place] MIGRATION.[id number] 11563 Information not available 11/17/2022 Do You Have A Medical Power Of Dining Host? No [id number].61632 [id number] Information not available 11/17/2022 What Was The Date Of Your Most Recent Tobacco Screening? 07/26/2024 Information not available 07/26/2024 How Many Children Do You Have? 3 Information not available 02/16/2024 Do You Have Any Pets? Yes MIGRATION.51646 [id number] Information not available 11/17/2022 What Is Your Relationship Status? Single MIGRATION.48823 [id number] Information not available 11/17/2022 Do You Use Your Seat Belt Or Car Seat Routinely? Yes [id number].31232 [id number] Information not available 11/17/2022 Do You Have Smoke And Carbon Monoxide Detectors In Your Home? Yes MIGRATION.26552 [id number] Information not available 11/17/2022 Are You Passively Exposed To Smoke? No MIGRATION.20690 13925 Information not available 11/17/2022 Are There Any Smokers In Your House? No MIGRATION.76491 50015 Information not available 11/17/2022 What Types Of Sporting Activities Do You Participate In? None MIGRATION.00113 85037 Information not available 11/17/2022 Do You Feel Stressed (tense, Restless, Nervous, Or Anxious, Or Unable To Sleep At Night)? [id number] MIGRATION.03819 02956 Information not available 11/17/2022 Do You Use Any Illicit Or Recreational Drugs? No [id number] Information not available 11/17/2022 Do You Use Sunscreen Routinely? Yes [id number] Information not available 11/17/2022 Has Tobacco Cessation Counseling Been Provided? No Not Needed-ne joce Smoked [id number] Information not available 11/17/2022 Have You Recently Traveled Abroad? No [id number] Information not available 11/17/2022 Do You Have Any Dietary Restrictions? No [id number] Information not available 11/17/2022 Do You Or Have You Ever Used Any Other Forms Of Tobacco Or Nicotine? No [id number] Information not available 11/17/2022 Sex: Female Functional Status Question Answer Note LastModified by Organizat ion Details LastModified Time What is your exercise level? Occasional [id number] Information not available 11/17/2022 Mental Status None recorded. Family History Relationship Description Onset Age of this Age Resolved Age Notes LastModified by Organization Details LastModified Time Mother Hypertensive disorder [id number] Not available 11/17/2022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
--- OUTSIDE RECORDS SUMMARY | 2024-10-18 12:24 | XMS_ITS ---
Author Organization [facility] Address [address] [place] [address] Care Team Providers Care Natural Resource Economist Name Role Phone Selina Anaya Primary Care Provider Cherie Piña Unavailable [phone] Allergies Allergen (clinical drug ingredient) Drug/Non Drug Allergy documented on EMR Reaction Allergy Type Onset Date Status PENICILLIN itching Drug Allergy Active REASON FOR VISIT 1 Month Psych F/U & Med Refill Medications Medication SIG (Take, Route, Frequency, Duration) Notes Start Date End Date Status Rexulti 2 mg 1 tablet oral once d aily for 30 days Active PROzac 20MG 1 capsule Orally Onc e a day for 30 days Active Adderall 20 MG 1 tablet Orally Thre e times daily for 30 days 08/12/2024 Active Adderall 20 MG 1 tablet Orally Thre e times daily for 30 days 07/15/2024 Active Adderall 20 MG 1 tablet Orally Thre e times daily for 30 days 09/09/2024 Active Zolpidem Tartrate 10MG 1 tablet at bedti me as needed Orally Once a day for 30 days 07/12/2024 Active Cyanocobalamin 1000 MCG/ML as directed I njection Weekly Active KlonoPIN 1 MG 1 tablet Orally up t o three times daily as needed for 30 days 07/12/2024 Active Vitamin D (Ergocalciferol) [id number] TAKE 1 CAPSULE BY MOUTH ONCE A MONTH DIRECTED Active Levothyroxine Sodium 50 MCG 1 tablet in the morning on an empty stomach Orally Once a day for 30 days Active Rexulti 2 mg 1 tablet oral once d aily for 30 days Active Trulicity Active Social History Sex Assigned At : Social History Observation Description Sex Assigned At Female Encounters Encounter Location Date Provider Diagnosis [facility] [facility] [place] [address] 07/05/2024 Selina Anaya Anxiety disorder F41.9 ; [...] stiffness, and a host of perceptual changes. 07/05/2024 Major depression, chronic (ICD-10 - F32.9) 07/05/2024 Adult ADHD (ICD-10 - F90.9) 07/05/2024 Obesity (ICD-10 - E66.9) Continue working with PCP. Encouraged healthy diet and exercise. 07/05/2024 Medication monitoring encounter (ICD-10 - Z51.81) 07/05/2024 Other Reasons, potential benefits, potential risks, [...] oral once d aily for 30 days PROzac 20MG 1 capsule Orally Onc e a day for 30 days Adderall 20 MG 1 tablet Orally Thre e times daily for 30 days 08/12/2024 Adderall 20 MG 1 tablet Orally Thre e times daily for 30 days 07/15/2024 Adderall 20 MG 1 tablet Orally Thre e times daily for 30 days 09/09/2024 Zolpidem Tartrate 10MG 1 tablet at bedti me as needed Orally Once a day for 30 days 07/12/2024 KlonoPIN 1 MG 1 tablet Orally up t o three times daily as needed for 30 days 07/12/2024 Treatment Notes Assessment Notes Anxiety disorder continue [...] signs. Next Appt Details Follow Up: 3 Months - or bef ore if needed, Reason: In-office Psych F/U Progress Notes * Jackie NELSONaDOB: [birth year] (38 yo F)Acc No.[id number]:07/05/2024 Patient:?Margarette NELSON Provider:?Selina Anaya, MSN, CIVIL MANAGER, HEEL LIFT GOUGER- C :1985???Age:38 Y???Sex:Female D ate:07/05/2024 Address:[place] [facility] Subjective: * Chief Complaints: * ???1 Month Psych F/U & Med R efill [...] yourself in some way?Not at all,?Total Score?4,?Interpretation?Minimal Depression.?Screening:?[place] Suicide Severity Rating Scale (LF)?Do you want [...] a 38 yo F on the phone reporting I am sore and bruised. I have had clear liquids for the past week. I am already down 12 pounds. I have water and protein shakes and sip it, so that takes like all day. Things went okay. They sent me home the same-day. ? Reports she is now on full-fluids.? Reports taking minimal pain medications at most, half a pain pill at night for sleep. I do not like the way that makes me feel. ? Reports my body detoxed from sugar, and I didn't realize how dependent that was. I felt like I was detoxing from drugs. ? States doing well with water intake.? Reports goes back on Tuesday to see the Dr.? Mental health: so far, it is a big change, but I already am feeling better with the sugar alone being out of me. ? Depression: I am feeling pretty good about myself now, clear headed with this new change. 11/26? Anxiety: I am worrying about all the changes, hair loss, it is still bad, maybe a bit better, but the same. Reports it is high.? Anger/irritability: Denies? Social: I am not used to laying down and resting. Has a good support system with her mom Drugs/ETOH: Denies? PCP is Becka Martin (used to see Ame Thakur)? Sleep: Good with the medications. ? Appetite: Good, taking it one day at a time. ? Denies SI/HI.? Denies other medical changes. Reports doing well. 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 * Medications:?TakingRexulti 2 mg tablet 1 tablet oral once daily Trulicity Cyanocobalamin 1000 MCG/ML Liquid as directed Injection Weekly Levothyroxine Sodium 50 MCG Tablet 1 tablet in the morning on an empty stomach Orally Once a day Vitamin D (Ergocalciferol) 42743RIZ Capsule TAKE 1 CAPSULE BY MOUTH ONCE A MONTH DIRECTED Adderall 20 MG Tablet 1 tablet Orally Three times daily KlonoPIN 1 MG Tablet 1 tablet Orally up to three times daily as needed Zolpidem Tartrate 10MG Tablet 1 tablet at bedtime as needed Orally Once a day PROzac 20MG Capsule 1 capsule Orally Once a day Rexulti 2 mg tablet 1 tablet oral once daily Adderall 20 MG Tablet 1 tablet Orally Three times daily Taking Rexulti 2 mg tablet 1 tablet oral once daily Taking Trulicity Taking Cyanocobalamin 1000 MCG/ML Liquid as directed Injection Weekly Taking Levothyroxine Sodium 50 MCG Tablet 1 tablet in the morning on an empty stomach Orally Once a day Taking Vitamin D (Ergocalciferol) 95446KXO Capsule TAKE 1 CAPSULE BY MOUTH ONCE A MONTH DIRECTED Taking Adderall 20 MG Tablet 1 tablet Orally Three times daily Taking KlonoPIN 1 MG Tablet 1 tablet Orally up to three times daily as needed Taking Zolpidem Tartrate 10MG Tablet 1 tablet at bedtime as needed Orally Once a day Taking PROzac 20MG Capsule 1 capsule Orally Once a day Taking Rexulti 2 mg tablet 1 tablet oral once daily Taking Adderall 20 MG Tablet 1 tablet Orally Three times daily * Allergies:?PENICILLIN: remy gallo[Allergies Verified] Objective: * Vitals:? * Examination: ???Mental Status Exam: ?SENSORIUM AND [...] * Procedure Codes:? * Follow Up:?3 Months - or bef ore if needed (Reason: In-office Psych F/U) * * Sign off status: Completed true * Provider:?Selina Anaya, MSN, CIVIL MANAGER, HEEL LIFT GOUGER- C Date:?07/05/2024 Generated for Kain gilbert/Jc/eTransmitting on:?10/18/2024 12:24 PM PIECE DYEING MACHINE TENDER History and Physical Notes * HPI (History [...] a 38 yo F on the phone reporting I am sore and bruised. I have had clear liquids for the past week. I am already down 12 pounds. I have water and protein shakes and sip it, so that takes like all day. Things went okay. They sent me home the same-day. Reports she is now on full-fluids. Reports taking minimal pain medications at most, half a pain pill at night for sleep. I do not like the way that makes me feel. Reports my body detoxed from sugar, and I didn't realize how dependent that was. I felt like I was detoxing from drugs. States doing well with water intake. Reports goes back on Tuesday to see the Mental health: so far, it is a big change, but I already am feeling better with the sugar alone being out of me. Depression: I am feeling pretty good about myself now, clear headed with this new change. 11/26 Anxiety: I am worrying about all the changes, hair loss, it is still bad, maybe a bit better, but the same. Reports it is high. Anger/irritability: Denies Social: I am not used to laying down and resting. Has a good support system with her mom Drugs/ETOH: Denies PCP is Becka Martin (used to see Ame Thakur) Sleep: Good with the medications. Appetite: Good, taking it one day at a time. Denies SI/HI. Denies other medical changes. Reports doing well. Screening [place]wood Suicide Severity Rating Scale (LF) Do you [...] CONCENTRATION No deficits ATTITUDE AND BEHAVIOR Cooperative, [employer] tive MEMORY Immediate, Recent, R emote MOOD [...]
--- OUTSIDE RECORDS SUMMARY | 2024-10-18 12:24 | XMS_ITS | Continuity of Care Document ---
Author Organization [facility] Address [address] [place] [address] Phone Care Team Providers Care Tactical Debriefer Name Role Phone Dotson OD, Boyd Unavailable Unavailable Advance Directives Directive Yes / No Effective Date File Name No Information Encounters Encounter Description Practice Location Reason(s) For Visit Diagnoses Date Provider Providers Copied on Encounter [facility], [id number] [place] [address] [address], [place], [place], [id number], [place] tel:[phone] [address] [facility] [place] No Information Nov-0 5-200 3 Dotson OD Boyd. [address] , [address], [place], [address], [place]. tel:[phone] Family History Family Member Type Diagnosis Age At Onset No Information Payers Payer name Insurance type Covered alliance party ID Authoriza tion(s) Medicaid [facility] [id number] Social History Type Description Quantity Date Captured Comments Sex Female Smoking Status No Information Chief Complaint And Reason For Visit No Information Reason For Referral Reason For Referral No Information History Of Present Illness Encounter Date Complaint History Of Prese nt Illness No Information Functional Status Date Functional Assessmen t No Information Instructions Date Instruction Additional Infor mation No Information Assessments Type Assessment Date No Information Patient Care Teams Name Effective Dates (start - stop) Status Members No Information
--- OUTSIDE RECORDS SUMMARY | 2024-10-18 12:24 | XMS_ITS | Patient Health Summary ---
Author Organization [facility] Address [address] [place] [address] Care Team Providers Care Model And Mold Maker Plaster Name Role Phone Unavailable Primary Care Provider Unavailabl e Note from [facility],non-owned Affiliates and Associated Physician Practices is amultiple site organization consisting of ambulatory clinics and hospital sitesin [place], [place], [place] and [place]. This disclosure is being madepursuant to the Care Everywhere program and may not contain all information available regarding this patient. Last updated 18.[facility] Social History Tobacco Use Types Packs/Day Years Used Date Smoking Tobacco: Never Assessed Sex and Gender Information Value Date Recorded Sex Assigned at Not on file Gender Identity Not on file Sexual Orientation Not on file Procedures * DERMATOPATHOLOGY(Performed 05/17/2024) Performed for Melanocytic nevi of other parts of face, Other pruritus, Other specified erythematousconditions * HCG URINE QUALITATIVE - POCT (IP) [facility](Performed 01/07/2017) * HCG URINE QUALITATIVE(Performed 12/09/2016) * HCG URINE QUALITATIVE(Performed 11/05/2016) * HCG URINE QUALITATIVE - POCT (IP) [facility](Performed 10/06/2016) * LIPID PROFILE(Performed 05/10/2016) * HEPATIC FUNCTION PANEL(Performed 05/10/2016) * CBC W AUTO DIFFERENTIAL(Performed 05/10/2016) * HCG URINE QUALITATIVE - POCT (IP) [facility](Performed 05/05/2016) * IMAGING/RADIOLOGY/XRAY RESULTS ORDER(Performed 11/10/2009) * ALPHA FETOPROTEIN BLOOD MATERNAL QUAD PANEL(Performed 10/31/2009) Performed for Unspecified Complication of , Antepartum (HCC) Results * DERMATOPATHOLOGY (05/17/2024 12:00 AM CDT) Case Report Dermatopathology Report ? Case: [id number] ? Authorizing Provider: ??Leah, Peace, ? Collected: ? 05/17/2024 12:00 AM ? DIRECTIONAL DRILL OPERATOR-INVASIVE CARDIOLOGIST ? [facility]ing Location[facility] ? [facility] - ??Received: ?05/18/2024 04:20 PM ? DermPath Lab ? Pathologist: ? Carleen Childs MD ? Specimen: ?Skin, right scalp ? 1:10 PM CDT DERMATOPATHOLOGY LABORATORY Final Diagnosis [...] characteristic determined by the Dermatopathology Laboratory at [facility], directed by Dr. Katrin Squires. These tests need not be, and therefore are not, approved by the [place] Food and Drug Administration. The tests are used for clinical purposes. Billing Codes Specimen Charges Stain Charges 03771 1 1:10 PM CDT DERMATOPATHOLOGY LABORATORY Embedded Images 1:10 PM CDT DERMATOPATHOLOGY LABORATORY Pathology/Cytolog y TISSUE SPECIMEN FROM SKIN / Unknown 05/17/2024 05/18/2024 4:20 PM CDT Peace Lynn DIRECTIONAL DRILL OPERATOR-INVASIVE CARDIOLOGIST LAB - PATH OLOGY/CYTOLOGY ORDERABLES DERMATOPATHOLOGY LABORATORY [facility] - Department of Dermatology [address] [place], [place] [address] [phone] * HCG URINE QUALITATIVE - POCT (IP) [facility] (01/07/2017 1:26 PM CDT) Only the most recent of3 resultswithin the time period is included. [facility] Test Urine Negative [facility] Urine specimen (specimen) 01/07/2017 1:26 PM CDT Marisol Salas MD LAB - POINT OF CAR E ORDERABLES Performing Organization Address [facility]/ZIP Co de Phone Number [facility] * HCG URINE QUALITATIVE (12/09/2016 11:23 AM CDT) Only the most recent of2 resultswithin the time period is included. [facility] hCG Qual NEGATIVE NEGATIVE [facility] ([facility]) Comment: REPORT COMMENT: FASTING:NO Test Performed at: [employer] [address] ??[phone] ZHOU EASON DO,MPH 12/09/2016 11:2 3 AM CDT 12/09/2016 11:23 AM CDT Marisol Salas MD LAB - URINALYSIS O RDERABLES Performing Organization Address City/[facility]/ZIP Co de Phone Number [facility] ([facility]) * CBC W AUTO DIFFERENTIAL (05/10/2016 9:15 AM CDT) [facility] WBC 6.9 3.8 - 10.8 Thousand/u L [facility] ([facility]) RBC 4.81 3.80 - 5.10 Million/uL [facility] ([facility]) Hemoglobin 14.2 11.7 - 15.5 g/dL [facility] ([facility]) Hematocrit 42.1 35.0 - 45.0 % [facility] ([facility]) MCV 87.6 80.0 - 100.0 fL [facility] ([facility]) MCH 29.5 27.0 - 33.0 pg [facility] ([facility]) MCHC 33.6 32.0 - 36.0 g/dL [facility] ([facility]) RDW-CV 13.1 11.0 - 15.0 % [facility] ([facility]) Platelet 188 140 - 400 Thousand/u L [facility] ([facility]) MPV 9.9 7.5 - 11.5 fL [facility] ([facility]) Neutrophils Absolute 4,740 1,500 - 7,800 cells/uL [facility] ([facility]) Lymphocyte Absolute Manual 1,622 850 - 3,900 cells/uL [facility] ([facility]) Monocytes Absolute 449 200 - 950 cells/uL [facility]) Eosinophils Absolute 55 15 - 500 cells/uL [facility] Basophil Absolute Manual 35 0 - 200 cells/uL [facility]) Neutrophils % 68.7 % [facility]) Lymphocytes % 23.5 % [facility]) Monocytes % 6.5 % [facility] ([facility]) Eosinophils % 0.8 % [facility] ([facility]) Basophil % 0.5 % [facility] ([facility]) Comment: REPORT COMMENT: FASTING:YES Test Performed at: [employer] [facility] [id number] [place], [place] ??[phone] ZHOU EASON DO,MPH Blood specimen (specimen) BLOOD SPECIMEN / Unknown 05/10/2016 9:15 AM CDT 05/10/2016 9:17 AM CDT Marisol Salas MD LAB - HEMATOLOGY O RDERABLES [facility] ([facility]) * HEPATIC FUNCTION PANEL (05/10/2016 9:15 AM CDT) Protein Total 7.4 6.4 - 8.4 g/dL [facility] ([facility]) Albumin 4.5 3.6 - 5.1 g/dL [facility] ([facility]) Globulin 2.9 2.2 - 4.0 g/dL (calc) [facility] ([facility]) Albumin/Globulin Ratio 1.6 0.9 - 2.3 (calc) [facility] ([facility]) Bilirubin Total 0.7 0.2 - 1.2 mg/dL [facility] ([facility]) Bilirubin Direct 0.1 < OR = 0.2 mg/dL [facility] ([facility]) Bilirubin Indirect 0.6 0.2 - 1.2 mg/dL (calc) [facility] ([facility]) Alkaline Phosphatase 86 33 - 115 U/L [facility] ([facility]) AST 17 10 - 30 U/L [facility] ([facility]) ALT 12 6 - 29 U/L [facility] ([facility]) Comment: Test Performed at: [facility] [address] [place], [place] ??[phone] ZHOU EASON DO,MPH Blood specimen (specimen) BLOOD SPECIMEN / Unknown 05/10/2016 9:15 AM CDT 05/10/2016 9:17 AM CDT Marisol Salas MD LAB - CHEMISTRY OR DERABLES Performing Organization Address [facility]/ZIP Co de Phone Number [facility] ([facility]) * (ABNORMAL) LIPID PROFILE (05/10/2016 9:15 AM CDT) Cholesterol Total 158 125 - 200 mg/dL [facility] ([facility]) HDL 38(L) > OR = 46 mg/dL [facility] ([facility]) Triglycerides 85 <150 mg/dL [facility]) LDL Calculated 103 <130 mg/dL (calc) [facility] ([facility]) Comment: Desirable range <100 mg/dL for patients with CHD or diabetes and <70 mg/dL for diabetic patients with known heart disease. Chol/HDL Ratio 4.2 < OR = 5.0 (calc) [facility] ([facility]) Non HDL Cholesterol 120 mg/dL (calc) [facility] ([facility]) Comment: Target for non-HDL cholesterol is 30 mg/dL higher than LDL cholesterol target. Test Performed at: [facility] [address] [place], [place] ??[phone] ZHOU EASON DO,MPH Blood specimen (specimen) BLOOD SPECIMEN / Unknown 05/10/2016 9:15 AM CDT 05/10/2016 9:17 AM CDT Marisol Salas MD LAB - CHEMISTRY OR DERABLES Performing Organization Address [facility]/ZIP Co de Phone Number [facility] ([facility]) * IMAGING/RADIOLOGY/XRAY RESULTS ORDER (11/10/2009 11:14 AM COMPOUNDER) Anatomical Region Laterality Modality Other Narrative 11/10/2009 11:14 AM COMPOUNDER Ordered by an unspecified provider. Transcriptions Document, Scanned - 10/31/2009 12:00 AM COMPOUNDER Scanned Document IMAGING * ALPHA FETOPROTEIN BLOOD MATERNAL QUAD PANEL (10/31/2009 9:56 AM COMPOUNDER) Alpha-Fetoprotein 71 ng/ml [facility] AFP MoM 1.15 [facility] HCG QUANT Serum 99107 IU/L [facility] hCG MoM 1.04 [facility] Estriol 2.12 ng/ml [facility] UE3 MoM 0.89 [facility] Dimeric Inhibin A 87 pg/ml [facility] ARNALDO MoM 0.44 [facility] Interpretation AFP S [facility] Comment: Comments and Normal Ranges for Component *AFP Interp ? Maternal Serum Quad Screen (AFP/hCG/uE3/ARNALDO) ? NORMAL SCREEN Risks ? Pre-test ?Post-test ? (Cutoff) ??Open NTD ?1 in 900 ?1 in 4400 ??Down Syndrome ?? 1 in 1100 ?<1 in 86101 ?(1 in 150) ??Trisomy 18 ?1 in 12265 ?? <1 in 99804 ?(1 in 100) Assuming the patient information listed is correct, this maternal serum screen is within normal limits. ??The interpretation is based on maternal age, gestational age, maternal weight, the presence or absence of insulin requiring maternal diabetes, maternal race, and number of fetuses, if known. Specimen First [facility] Maternal Weight 215 [facility] Maternal Age 24.4 [facility] Dating US [facility] Gestational Age Exact 22.29 [facility] Insulin for Diabetes No [facility] Family History of Neural Tube Defect No [facility] Maternal Race White [facility] Number of Fetuses One [facility] Estimate Due Date [facility] BLOOD SPECIMEN / Unknown 10/31/2009 9:56 AM COMPOUNDER 10/31/2009 9:56 AM COMPOUNDER Narrative Resulting Agency Comment Performed By [facility] ? [address] ? [place], [place] ??[address] Zhou Ross MD LAB - CHEMISTRY ORDERABLES [facility] [address] [place] [address]
--- OUTSIDE RECORDS SUMMARY | 2024-10-18 12:24 | XMS_ITS | Continuity of Care Document ---
Author Organization [facility] Address [address] [facility] [place] [address] Phone Care Team Providers Care Director Life Sales Name Role Phone Jaden Membreno MD Unavailable Unavailable Allergies, Adverse Reactions, Alerts Substance Reaction Status Criticality No Known Allergies Active No Inform ation Medications Medication Instructions Dosage Effective Dates (start - stop) Status Comments phentermine 37.5 mg capsule take 1 capsule by oral route every day before breakfast 37.5 MG - Active Klonopin 1 mg tablet take 1 tablet by or al route 2 times every day 1 MG - Active Prozac 40 mg capsule take 1 capsule by o ral route every day in the morning 40 MG - Active Procedures Procedure Date OFFICE/OUTPATIENT VISIT, EST OFFICE/OUTPATIENT VISIT, EST PREV VISIT, EST, AGE 18-39 OFFICE/OUTPATIENT VISIT, EST PREV VISIT, NEW, AGE 18-39 Advance Directives Directive Yes / No Effective Date File Name No Information Encounters Encounter Description Practice Location Reason(s) For Visit Diagnoses Date Provider Providers Copied on Encounter OFFICE/OUTPAT IENT VISIT, EST [facility], [address] [place], [place], [id number], [place] tel:[phone] [facility] Weight (chief complaint) rectal bleeding (chief complaint) Body mass index (BMI) 31.0-31.9, adultOccult blood in stool Dec-0 8-201 [address] [facility] [place], [address] , [place]. tel:[phone] Referring Provider: Jaden Membreno, [address], [place], [place], [id number]. tel:[phone] OFFICE/OUTPAT IENT VISIT, EST [facility], [address], [place], [place], [id number], [place] [phone] [facility] overweight 1 (chief complaint) rectal bleeding (chief complaint) anxiety1 (chief complaint) Body mass index (BMI) 31.0-31.9, adultFamily history of ischemic heart disease and other diseases of the circulatory systemOccult blood in stoolGeneralized Anxiety Disorder May-0 6 Haseeb Stanley. [address], [place], [place], [address] , [place]. tel:[phone] Referring Provider: Bubba Woody [facility] [address], [place], [place], [id number]. tel:[phone] PREV VISIT, EST, AGE 18-39 [facility], [address], [place], [place], [address], [place] [phone] [facility] PHysical (chief complaint) Encntr for general adult medical exam w/o abnormal findings Apr- 6 Haseeb Stanley. [address], [place], [place], [address] , [place]. [phone] Referring Provider: Bubba Woody [address], [place], [place], [address]. tel:[phone] OFFICE/OUTPAT IENT VISIT, EST [facility], [address], [place], [place], [address], [place] tel:[phone] [facility] weight gain (chief complaint) anxiety (chief complaint) ObesityFamily Hx of Cardiovascular DiseasePersonal history of noncompliance with medical treatment, presenting hazards to healthDietary surveillance and counseling 0 5 Haseeb Stanley. [address], [place], [place], [address] , [place]. [phone] Referring Provider: Bubba Woody [address], [place], [place], [address]. tel:[phone] PREV VISIT, NEW, AGE 18-39 [facility], [address], [place], [place], [address], [place] tel:[phone] [facility] Physical (chief complaint) Routine Medical ExamDietary surveillance and counselingRoutine Medical Exam 5 Haseeb Stanley. [address], [place], [place], [address] , [place]. tel:[phone] Family History Family Member Type Diagnosis Age At Onset Brother Problem (finding) of heart disease a t 32 Father Problem (finding) Cancer - lung CA Mother Problem (finding) Anxiety Mother Problem (finding) Depression Payers Payer name Insurance type Covered alliance party ID Authoriza tion(s) No Information Social History Type Description Quantity Date Captured Comments Alcohol Use Details Caffeine Use Details Unknown Tobacco Use Status Never smoked tobacco 2015 Smoking Status Never smoker Sex Female Vital Signs Date / Time: Height Weight BMI Pulse Rate Blood Pressure Temperature Respiratory Rate Body Surface Area Head Circumference BMI percentile Pulse Ox Inhaled Ox 10:44 AM 168.91 cm 200.00 lbs 31.8 0 kg/m eter (2) 81 /min 116/74 mm[Hg] 98.6 F 18 /min Chief Complaint And Reason For Visit From encounter dated '08/26/2016 09:30'. Weight (chief complaint). Description: Pt has been having hard time losing weight. Pt has been taking phentermine for the past 3 months. Pt has not lost much weight. Pt has been going through a lot of stress. Pt feels more energy. Pt has not done much diet and exercise in addition to the phentermine. Pt feels that her appetite is well suppressed with phentermine rectal bleeding (chief complaint). Description: Additional information: Pt has not had anymore rectal bleeding. Pt had colonosocpy done which showed benign polyp per patient. Pt was told bleeding is from hemorrhoid. Pt denies any abd pain. Plan Of Treatment Date Type Action Status Referral Ordered: COLONOSCOPY AND BIOPSY ordered Referral Ordered: DOPPLER ECHO EXAM, HEART ordered History Of Present Illness Encounter Date Complaint History Of Prese nt Illness Weight Pt has been havi ng hard time losing weight. Pt has been taking phentermine for the past 3 months. Pt has not lost much weight. Pt has been going through a lot of stress. Pt feels more energy. Pt has not done much diet and exercise in addition to the phentermine. Pt feels that her appetite is well suppressed with phentermine rectal bleeding Additional infor mation: Pt has not had anymore rectal bleeding. Pt had colonosocpy done which showed benign polyp per patient. Pt was told bleeding is from hemorrhoid. Pt denies any abd pain. overweight1 Pt is overweight . Pt has been trying diet and exercise but unable to lose any weight. Pt wants to try phentermine again Pt tried last year and lost some weight. Pt denies any side effect from phentermine rectal bleeding Additional infor mation: Pt has intermittent bright red blood per rectum for 3 months. Pt has not had any bleeding for 3-4 weeks. Pt denies any abd pain Pt has appointemnt with GI soon. anxiety1 Pt has chronic a nxeity PT takes prozac and klopin and doing ok Pt denies any suicidal or homicidasl thought Pt denies any crying spells PHysical Pt needs annual physical. Pt has chronic anxiety and depression and she takes klonpin and prozac from psychiatrist. Pt recently went to ER due to bright red blood per rectum. Pt notices it occured 3-4 times prior to going to ER two weeks ago. Pt denies episodes every occuring before. Pt denies any abd pain or any diarrhea. Pt also wants to try try weight loss medicien again Instructions Date Instruction Additional Infor mation Prescribed Diet Educ ation/Lifestyle Education Regarding Diet Related to Dietary Surveillance and Counseling Prescribed Activity and Exercise Education Related to Dietary Surveillance and Counseling Prescribed Diet Educ ation/Lifestyle Education Regarding Diet Related to Dietary Surveillance and Counseling Prescribed Activity and Exercise Education Related to Dietary Surveillance and Counseling Prescribed Diet Educ ation/Lifestyle Education Regarding Diet Related to Dietary Surveillance and Counseling Prescribed Activity and Exercise Education Related to Dietary Surveillance and Counseling Decrease caloric intake Related to Dietary surveillance counseling Physical activity counseling Rel ated to Dietary surveillance counseling Physical activity counseling Rel ated to Dietary surveillance counseling Decrease caloric intake Related to Dietary surveillance counseling Assessments Type Assessment Date assessment Body mass index (BMI) 31.0-31.9, adult assessment Occult blood in stool Mental Status Date Cognitive Assessment Orientation - Rosenberg ed to time, place, person, situation.
== END 2024-10-18 11:27 | disposition home or self-care (01) ==
LOC: ANHIMG 11:26
PROVIDERS: Visit Provider Nurse Practitioner Family
DX: N63.20 Unspecified lump in the left breast, unspecified quadrant (principal); R92.8 Other abnormal and inconclusive findings on diagnostic imaging of breast
CPT/HCPCS: 76642; 77062; 77066; G0279

== ENCOUNTER 2024-12-25 09:08 | Outpatient (CLI) | payer MEDICARE, MEDICAID, SELFPAY ==
--- NOTE | ~2024-12-25 | US_ITS ---
Limited Abdominal Sonogram: Real-time sonographic imaging of the right upper quadrant was performed. Clinical History: Abdominal pain Findings: The liver appears normal with no evidence of mass lesion or bile duct dilatation. Main por suni vein demonstrates normal direction of flow. The gallbladder is well distended, and demonstrates t iny gallbladder wall polyp. The common bile duct measures 3 mm. The visualized pancreas, aorta, and IVC are unremarkable. Impression: Tiny gallbladder wall polyp. Reviewed, dictated and finalized at location M. Impression: Tiny gallbladder wall polyp.
--- OUTSIDE RECORDS SUMMARY | 2024-12-25 09:52 | XMS_ITS | Encounter Summary ---
Author Organization [facility] Address [address] [facility] [place] [address] Care Team Providers Care Guest Service Host Name Role Phone Unavailable Primary Care Provider Unavailabl e Encounter Details Date Type Department Care Team (Late st Contact Info) Description 05/17/2024 Lab Requisition [facility] - DermPath Lab [address] [facility] [place] [address] Peace Lynn, CHRIS-TECHNICAL BUSINESS SYSTEMS ANALYST [facility] DERMATOLOGY [address] [place] [phone] Melanocytic nevi of other parts of [...] 12:00 AM CDT) Case Report Dermatopathology Report Case: [id number] Authorizing Provider: Peace Lynn, Collected: 05/17/2024 12:00 AM FROZEN MEAT CUTTER-TECHNICAL BUSINESS SYSTEMS ANALYST Ordering Location: [facility] - Received: 05/18/2024 04:20 PM DermPath Lab Pathologist: Carleen Childs MD Specimen: Skin, right scalp 1:10 PM CDT DERMATOPATHOLOGY LABORATORY Final Diagnosis [...] characteristic determined by the Dermatopathology Laboratory at [facility], directed by Dr. Katrin Squires. These tests need not be, and therefore are not, approved by the [place] Food and Drug Administration. The tests are used for clinical purposes. Billing Codes Specimen Charges Stain Charges 07413 1 1:10 PM CDT DERMATOPATHOLOGY LABORATORY Embedded Images 1:10 PM CDT DERMATOPATHOLOGY LABORATORY Pathology/Cytolog y TISSUE SPECIMEN FROM SKIN / Unknown 05/17/2024 05/18/2024 4:20 PM CDT Peace Lynn FROZEN MEAT CUTTER-TECHNICAL BUSINESS SYSTEMS ANALYST LAB - PATH OLOGY/CYTOLOGY ORDERABLES DERMATOPATHOLOGY LABORATORY [facility] Department of Dermatology [address] [place] [address], [facility] [phone] documented in this encounter Visit Diagnoses Diagnosis Melanocytic nevi of other parts of face Other pruritus Other specified erythematous conditions documented in this encounter
--- OUTSIDE RECORDS SUMMARY | 2024-12-25 09:52 | XMS_ITS | Patient Health Record ---
Author Organization [facility] Address [address] [place] [address] Care Team Providers Care Maritime Pilot Name Role Phone Selina Anaya Primary Care Provider Cherie Piña [phone] Allergies Allergen (clinical drug ingredient) Drug/Non Drug Allergy documented on EMR Reaction Allergy Type Onset Date Status PENICILLIN itching Drug Allergy Active Results Component Value Reference Range Notes 12 Panel Urine Drug Screen Reviewed date:01/27/2024 09:18:02 AM Interpretation: Performing Lab: Notes/Report: THC pos NINFA neg MOP (OPI) neg AMP pos MET neg BAR neg BZO pos MDMA neg MTD neg OXY neg PCP neg BUP neg CMP 14 Comprehensive Metabol ic Panel* Reviewed date:02/02/2024 11:50:01 AM Interpretation:Abnormal Performing Lab:[facility] [place], [address] [place] [address], Phone - [phone], Director - PhDRicnoah Notes/Report: Glucose 91 70-99 mg/dL BUN 12 [...] 0-40 IU/L ALT (SGPT) 36 0-32 IU/L Lipid Panel* Reviewed date:02/02/2024 11:49:16 AM Interpretation:Abnormal Performing Lab:[facility] [place], [address] [facility], Phone - [phone], Director - [facility] Infirmaryn[facility]ia Notes/Report: Cholesterol, Total 174 100-199 mg/dL Triglycerides 110 0-149 mg/dL HDL Cholesterol 52 >39 mg/dL VLDL Cholesterol Kane 20 5-40 mg/dL LDL Chol Calc (NIH) 102 0-99 mg/dL CBC With Differential/Platel et* Reviewed date:02/02/2024 11:50:16 AM Interpretation:Normal Performing Lab:[facility] [place], [address] [facility], Phone - [phone], Director - Daniela Notes/Report: WBC 6.8 3.4-10.8 x10E3/uL RBC 4.41 [...] % Immature Grans (Abs) 0.0 0.0-0.1 x10E3/uL TSH* Reviewed date:02/02/2024 11:49:44 AM Interpretation:Normal Performing Lab:[facility] [place], [address] [facility], [place], Phone - [phone], Director - Daniela Notes/Report: TSH 0.875 0.450-4.500 uIU/mL Reason For Referral No Information Medications Medication [...] as needed for 30 days 10/18/2024 Active FLUoxetine HCl 20 MG TAKE 1 CAPSULE BY MOUTH EVERY DAY FOR 30 DAYS for 90 Active Vitamin D (Ergocalciferol) [id number] TAKE 1 CAPSULE BY MOUTH ONCE A MONTH DIRECTED Active Zolpidem Tartrate 10MG 1 tablet at bedti me as needed Orally Once a day for 30 days 10/12/2024 Active Social History Tobacco Use: Social History Observation Description Date Details (start date - stop date) Never Smoker NA - NA Sex Assigned At : Social History Observation Description Sex Assigned At Female Dont use, Tobacco Use/Smoking Question Answer Notes Are you a nonsmoker Problems Problem Type SNOMED Code ICD Code Onset Dates Problem Status W/U Status Risk Notes Problem Generalized anxiety disorder (33550091) Generalized anxiety disorder (F41.1) Active confirmed Problem Obesity (514371891) Obesity (E66.9) Active confirmed Problem Major depression (096004554) Major depression (F32.9) Active confirmed Problem 730073785 Anxiety disorder (F41.9) Active confirmed Problem 2007499 Major depression, chronic (F32.9) Active confirmed Problem Attention deficit hyperactivity disorder (110926069) Adult ADHD (F90.9) Active confirmed Vital Signs Height 67 in 2024 Weight 189 lbs 2024 BMI 29.6 kg/m2 2024 Encounters Encounter Location Date Provider Diagnosis [facility] [address] [place] [address] 01/17/2024 Selina Héctor Anxiety disorder F41.9 ; Major depression, chronic F32.9 ; Adult ADHD F90.9 ; Obesity E66.9 and Medication monitoring encounter Z51.[address] [address] 01/27/2024 Selina Héctor Major depression, chronic F32.9 ; Medication monitoring encounter Z51.81 and Adult ADHD F90.[address] [address] 02/29/2024 Selina Héctor Anxiety disorder F41.9 ; Major depression, chronic F32.9 ; Adult ADHD F90.9 ; Obesity E66.9 and Medication monitoring encounter Z51.[address] [address] 06/07/2024 Selina Héctor Anxiety disorder F41.9 ; Major depression, chronic F32.9 ; Adult ADHD F90.9 ; Obesity E66.9 and Medication monitoring encounter Z51.[address] [address] 07/05/2024 Selina Héctor Anxiety disorder F41.9 ; Major depression, chronic F32.9 ; Adult ADHD F90.9 ; Obesity E66.9 and Medication monitoring encounter Z51.[address] [address] 2024 Selina Héctor Anxiety disorder F41.9 ; Major depression, chronic F32.9 ; Adult ADHD F90.9 ; Obesity E66.9 and Medication monitoring encounter Z51.[address] [address] 01/17/2024 Selina Anaya [address] [place] [address] 04/24/2024 Selina Anaya Assessments Encounter Date Diagnosis (ICD Code) Assessment Notes Treatment Notes Treatment Clinical Notes Section Notes 01/17/2024 Anxiety disorder (ICD-10 - F41.9) continue [...] 01/27/2024 Major depression, chronic (ICD-10 - F32.9) 02/29/2024 Anxiety disorder (ICD-10 - F41.9) continue [...] and a host of perceptual changes. 07/05/2024 Anxiety disorder (ICD-10 - F41.9) continue [...] 07/05/2024 Major depression, chronic (ICD-10 - F32.9) 06/07/2024 Major depression, chronic (ICD-10 - F32.9) 02/29/2024 Major depression, chronic (ICD-10 - F32.9) 01/27/2024 Medication monitoring encounter (ICD-10 - Z51.81) 01/17/2024 Major depression, chronic (ICD-10 - F32.9) 01/17/2024 Adult ADHD (ICD-10 - F90.9) 01/27/2024 Adult ADHD (ICD-10 - F90.9) 02/29/2024 Adult ADHD (ICD-10 - F90.9) 06/07/2024 Adult ADHD (ICD-10 - F90.9) 07/05/2024 Adult ADHD (ICD-10 - F90.9) 2024 Adult ADHD (ICD-10 - F90.9) 2024 Obesity (ICD-10 - E66.9) Continue working with PCP. Encouraged healthy diet and exercise. 07/05/2024 Obesity (ICD-10 - E66.9) Continue working with PCP. Encouraged healthy diet and exercise. 06/07/2024 Obesity (ICD-10 - E66.9) Continue working with PCP. Encouraged healthy diet and exercise. 02/29/2024 Obesity (ICD-10 - E66.9) Continue working [...] Education provided, client reports understanding. Questions answered. 01/17/2024 Medication monitoring encounter (ICD-10 - Z51.81) 02/29/2024 Medication monitoring encounter (ICD-10 - Z51.81) 06/07/2024 Medication monitoring encounter (ICD-10 - Z51.81) 07/05/2024 Medication monitoring encounter (ICD-10 - Z51.81) 2024 Medication monitoring encounter (ICD-10 - Z51.81) 01/17/2024 Other Reasons, potential benefits, potential risks, [...] May also contact the 24-hour crisis hotline ([facility]), refer to the closest emergency room or [...] May also contact the 24-hour crisis hotline ([facility]), refer to the closest emergency room or [...] May also contact the 24-hour crisis hotline ([facility]), refer to the closest emergency room or [...] May also contact the 24-hour crisis hotline ([facility]), refer to the closest emergency room or [...] May also contact the 24-hour crisis hotline ([facility]), refer to the closest emergency room or [...] AIMS, or vital signs. Plan Of Treatment Next Appt Details Provider Name:Selina Garcia niranjan, 12/31/2024 08:40:00 AM, [address] [facility], [place], [address], Insurance Providers Payer Name Payer Address Payer Phone Subscriber Number Group Number Insured Name Patient Relationship to Insured Coverage Start Date Coverage End Date MEDICARE PART A [address] [place] [address] [id number] Margarette Tolentino Self - patient is the insured 0 MEDICAID [address] [place] [address] [id number] Margarette Tolentino Self - patient is the insured 0 Medical (General) History Medical History History ICD Code Hypothyroidism Surgical History Surgery Date(Month/Year) Hospitalization History Reason Date(Month/Year)
--- OUTSIDE RECORDS SUMMARY | 2024-12-25 09:52 | XMS_ITS | Clinical Summary ---
Author Organization [facility] Address [address] [place], [facility] [address] [place] [address] Phone Care Team Providers Care Training And Quality Manager Name Role Phone Provider, None Primary Care [...] Comments Blood Pressure 102/50 07/28/2016 12:08 PM FOOD AND BEVERAGE MANAGER Pulse 69 07/28/2016 10:37 AM FOOD AND BEVERAGE MANAGER Temperature 36 C (96.8 F) 07/28/2016 12:08 PM FOOD AND BEVERAGE MANAGER Respiratory Rate 12 07/28/2016 12:08 PM FOOD AND BEVERAGE MANAGER Oxygen Saturation 100% 07/28/2016 12:08 PM FOOD AND BEVERAGE MANAGER Inhaled Oxygen Concentration - - Weight 89.4 kg (197 lb) 07/27/2016 9:00 AM FOOD AND BEVERAGE MANAGER Height 170.2 cm (5' 7 ) 07/27/2016 9:00 AM FOOD AND BEVERAGE MANAGER Body Mass Index 30.85 07/27/2016 9:00 AM FOOD AND BEVERAGE MANAGER Plan of Treatment Health Maintenance Due Date Last Done Comments Hepatitis C Virus (HCV) Screening 1985 TdaP Immunization 1985 Hepatitis B Immunization (1 of 3 - 19+ 3-dose series) 2004 Pap Smear 2006 Cervical Cancer Screening (CCS) 2015 HPV/Cotest 2015 Influenza Immunization (#1) 2024 SARS-COV-2 Immunization ( - season) 2024 Respiratory Syncytial Virus (RSV) Immunization [...] Insurance MEDICAID [employer] Care Teams Training And Quality Manager Relationship Specialty Start Date End Date Provider, None [place] PCP - General 07/26/16
--- OUTSIDE RECORDS SUMMARY | 2024-12-25 09:53 | XMS_ITS | Clinical Summary ---
Author Organization [facility] Address [address] [facility] [place] [address] Care Team Providers Care Inspector Electromechanical Name Role Phone Unavailable Primary Care Provider Unavailabl e Source Comments [facility],non-owned Affiliates and Associated Physician Practices is amultiple site organization consisting of ambulatory clinics and hospital sitesin [place], [place], [place] and [place]. This disclosure is being madepursuant to the Care Everywhere program and may not contain all information available regarding this patient. Last updated 18.[facility] Social History Tobacco Use Types Packs/Day [...] 2004 COVID-19 VACCINE (2023-2 5 season) 2024 DEPRESSION SCREENING 09/19/2024 MEDICARE AWV CALENDAR YEAR 2024 INFLUENZA VACCINE (Season Ended) 2025 PAP SMEAR 01/25/2026 01/25/2023 ZOSTER VACCINE (1 of 2) 2035 HIB VACCINE Aged Out No longer eligi ble based on patient's age to complete this topic HPV VACCINE Aged Out No longer eligi ble based on patient's age to complete this topic MENINGOCOCCAL (Group B) VACC INE SHARED DECISION-MAKING Aged Out No longer eligibl e based on patient's age to complete this topic MENINGOCOCCAL GROUPS A/C/Y/W VACCINE Aged Out No longer eligible b ased on patient's age to complete this topic PNEUMOCOCCAL VACCINE Aged Out No long er eligible based on patient's age to complete this topic
--- OUTSIDE RECORDS SUMMARY | 2024-12-25 09:53 | XMS_ITS | Data Portability ---
Author Organization [facility] [employer], Main Office Address [address] [place] [address] Assessment No assessment recorded. Plan of Treatment Reminders Order Date Submit Date Provider Last Modified By Organization Details Last Modified Time Details Appointments Any 15 2024 01:00P Jessy Martin APRN Not available Not available Not available Lab hepatitis C virus Ab, serum 2023 [facility] (Lab), [address] [place], [address], 06/25/2024 20:11:04 vitamin D, 25-hydrox y, total, serum 2023 024 [facility] (Lab), [address] [place], [address], 02/16/2024 20:28:22 TSH, serum or plasma 2023 024 [facility] (Lab), [address] [place], [address], 02/16/2024 20:28:21 T4, free, serum 2023 024 [facility] (Lab), [address] [place], [address], 02/16/2024 20:28:21 glycohemo globin, total, blood 2023 024 [facility] (Lab), [address] [place], [address], 02/16/2024 17:31:36 lipid panel, serum 2023 024 [facility] (Lab), [address] [place], [address], 02/16/2024 20:28:21 CBC w/ auto diff 2023 024 [facility] (Lab), [address] [place], [address], 02/16/2024 20:28:21 CMP, serum or plasma 2023 024 [facility] (Lab), [address] [place], [address], 02/16/2024 20:28:22 Referral physical therapist referral - Please call patient to schedule. 2023 024 [facility] (Outpatient Physical Therapy), [address], [place], [address], 08/01/2024 10:09:40 sleep medicine referral 2023 024 [facility], [address] [place], [address], 08/13/2024 07:51:45 Procedures None recorded. Surgeries None recorded. Imaging MAMMO, diagnosti c, digital, bilateral - Please call patient to schedule. [address] [facility], [address], [place] [address], [place], [address], 10/18/2024 15:53:36 XR, cervical spine, 2 or 3 view 2023 024 [facility] (One Call Scheduling), [address] [place], [address], 10/09/2024 11:03:26 XR, thoracic spine 2023 024 [facility] (One Call Scheduling), [address] [place], [address], 10/09/2024 11:03:26 XR, hip + pelvis, bilateral 2023 024 [facility] (One Call Scheduling), [address] [place], [address], 09/27/2024 08:36:50 home sleep study 2023 024 [facility] (One Call Scheduling), [address] [place], [address], 03/29/2024 13:28:09 Medication Orders lidocaine 5 % topical patch 2023 024 [id number], [address] [place], [address], 07/30/2024 12:51:04 Patient TargetsNo targets recorded. Patient Instructions Encounter Date Encounter Id Patient Instructions Last Modified By Organization Details Last Modified Time 02/16/2024 [id number] Follow up in 4 months Obtain labs Obtain sleep study for diagnosis of sleep apnea Not available 02/16/2024 14:51:22 03/19/2024 [id number] Follow up in 4 months Home sleep study You should be in calorie deficit-consuming 1300 maximum to loose 2 pounds per week. [place] weight is 120-160 lbs Consume less carbs and red meat Eat more vegetables and fruit Not available 03/19/2024 15:09:56 06/25/2024 [id number] dementia rating scale-2* ROXIE Not available 06/25/2024 15:06:43 alcohol misuse* Not available 06/25/2024 15:00:55 depression screening* Not available 06/25/2024 15:02:24 Timed Up and Go test (TUG)* Not available 06/25/2024 15:02:24 multi-dimensiona l health assessment questionnaire* Not available 06/25/2024 15:02:23 advance directiv es: care instructions Not available 06/25/2024 15:02:23 advance care planning: care instructions Not available 06/25/2024 15:02:23 [place] Advance Directives Not available 06/25/2024 15:02:24 Follow up in 3 months Obtain lab Recommend: Influenza vaccine Personalized Health Plan and Screening Recommendations Advance Directives - Do you have one? No You have indicated that you are capable of preparing your advance care directive Advance Directives - Do we have your advance directive on file in your health record? Primary Prevention/Interven tion (prevents or decreases the chance of common diseases from occurring) Smoking Risk: Non Smoker Alcohol Misuse Screening: Negative Weight: Appropriate Overwei ght continue your current weight loss efforts Physical activity: Need more exercise/physical activity minimum of 10-20 minutes of activity that [...] or ) Breast Cancer Screening with mammogram: No screening necessary Cervical/Uterine/Ov cecille Cancer Screening: Osteoporosis Screening: No screening necessary Date Screening Last Performed: Colon Cancer Screening: No screening necessary Date Screening Last Performed: Eye Disease Screening: No Eye exam necessary Dementia Risk: Low Depression Screening: Negative Positive Active diagnosis, Continue current treatment plan rl Not available 06/25/2024 15:02:20 07/26/2024 [id number] Follow up in September Tests: Complete xrays Referral: Physical therapy referral Recommend: [email or web address] Not available 07/26/2024 09:32:09 09/25/2024 [id number] Follow up in 6 months Obtain labs Tests: Referral: Recommend: Tetanus vaccine Not available 09/25/2024 14:36:28 Reason for Referral Sleep Medicine Referral for Sleep apnea Referring Physician: Becka Martin, Internal Medicine, Encounter Date: 02/16/2024 Physical Therapist Referral for Neck pain Please call patient to schedule. Referring Physician: Becka Martin Internal Medicine, Encounter Date: 07/26/2024 Results Created Date Observation Date Name Description Value Unit Range Abnormal Flag Note LastModifiedBy Organization Detail LastModifiedTime 03/29/20 24 03/27/2024 home sleep study No observ ation record ed. [facility] (One Call Scheduling) [address] [place], [address], 03/29/2024 13:28:09 03/29/20 24 03/27/2024 home sleep study No observ ation record ed. [facility] (One Call Scheduling) [address] [place], [address], 04/03/2024 13:41:48 09/27/19 25 07/26/2024 XR, cervi efren spine , 4 or 5 view No observ ation record ed. [facility] Not Available 2024 08:36:49 09/27/19 25 07/26/2024 XR, hip + pelvi s, bilat eral No observ ation record ed. [facility] (One Call Scheduling) [address] [place], [address], 09/27/2024 08:36:50 10/18/19 25 10/18/2024 MAMMO , diagn ostic , digit al, bilat eral No observ ation record ed. [address], [place], [address], 10/22/2024 07:28:03 Result Notes None recorded. Problems Name Problem SNOMED Code Status Onset Date Resolution Date Notes Provider Name and Address Organization Details Recorded Time Hypothyro idism 74949982 Active 2022 Becka Martin APRN [address], [address], [place], [address], [employer] 4 10:12:03 Obesity 682159680 Active 2022 Becka Martin APRN [address], [place], [address], [employer] 4 10:12:40 Vitamin B12 deficienc y (non anemic) 46258025 Active 2022 Becka Martin APRN [address], [place], [address], [employer] 4 10:12:32 Hyperlipi demia 28986386 Active 2022 Becka Martin APRN [address], [address], [place], [address], [employer] 4 10:11:58 Mixed anxiety and depressiv e disorder 753921811 Active 2022 Becka Martin APRN [address], [address], [place], [address], [employer] 4 10:12:09 Liver enzymes level above reference range 787464520 Active 2022 Becka Martin APRN [address], [address], [place], [address], [employer] 4 10:13:14 Acne 97086789 Active 2022 Becka Martin APRN [address], [place], [address], [employer] 4 10:12:50 Obstructi ve sleep apnea syndrome 63677654 Active 2023 Becka Martin APRN [address], [place], [address], [employer] 4 10:15:37 Laparosco pic sleeve gastrecto my Active 2023 Becka Martin APRN [address], [address], [place], [address], [employer] 4 09:15:52 Neck pain 32344517 Active 2023 Becka Martin APRN [address], [address], [place], [address], [employer] 4 09:19:28 Pain in pelvis 41721330 Active 2023 Becka Martin APRN [address], [place], [address], [employer] 4 09:19:37 Mass of left breast 166630418264 63178 Active 2024 Becka Martin APRN [address], [place], [address], [employer] 5 14:24:28 Generaliz ed anxiety disorder 21974376 Completed 202103/26/2024 Becka Martin APRN [address], [address], [place], [address], [employer] 4 16:37:06 Vitamin D deficienc y 60101931 Active 2022 Becka Martin APRN [address], [place], [address], [employer] 4 10:12:36 Attention deficit hyperacti vity disorder, predomina ntly inattenti ve type 76056578 Active 2019 Becka Martin APRN [address], [place], [address], [employer] 4 10:11:44 Depressiv e disorder 44744383 Completed 201903/26/2024 Becka Martin APRN [address], [place], [address], [employer] 4 16:36:59 Notes:Becka Martin APRN [phone] [facility] home sleep study 03/12/21 AHI = 2 [facility] diagnostic sleep study 05/12/21 AHI = 1, REM AHI = 4 [facility] home sleep study 03/27/24 AHI = 1, supine AHI = 2 Medical History: Acne Depression/Anxiety/ADHD Obesity with mild OSAHS, AHI = 1, 03/27/24 Hypothyroidism Hyperlipidemia Vit B12 deficiency Vit D deficiency Problem Notes None recorded. Procedures Surgical History Date Name Laterality Status Provider Name and Address Organization Details Recorded Time 4 bariatric operative procedure completed Marjorie Dunn MA [employer] 07/26/2024 08:50:37 4 Medicare Wellness CPT Code, subsequent completed Alfredo Khan LPN [employer] 06/25/2024 08:28:39 4 Medicare Wellness CPT Code, Initial completed Becka Martin APRN [address] [facility], [place], [address], [facility] [employer] 06/22/2024 21:13:53 3 Medicare Wellness CPT Code, subsequent completed ELIDA Luz [address] [facility], [address], [place], [address], [employer] 04/22/2023 16:34:07 3 Advanced Care Planning completed ELIDA Luz [address] [facility], [address], [place], [address], [employer] 04/22/2023 16:39:26 Knee Surgery completed Not Available [employer] 11/17/2022 04:43:03 Imaging Results Imaging Date Name Status LastModified by Jenny victor Details LastModified Time 03/27/2024 home sleep study completed [facility] (One Call Scheduling) [address] [place], [address], 03/29/2024 13:28:09 03/27/2024 home sleep study completed [email or web address] (One Call Scheduling) [address] [place], [address], 04/03/2024 13:41:48 07/26/2024 XR, cervical spine, 4 or 5 view completed [facility] Information not available 09/27/2024 08:36:49 07/26/2024 XR, hip + pelvis, bilateral completed [facility] (One Call Scheduling) [address] [place], [address], 09/27/2024 08:36:50 10/18/2024 MAMMO, diagnostic, digital, bilateral completed [facility] [address] [facility] [address], [place], [address], 10/22/2024 07:28:03 Procedure Notes None recorded. Medical Equipment None Reported. Allergies Allergen ID Allergen Name Allergen Category Reaction Reaction Severity Criticality Documentation Date Start Date Code Code System Note Provider Name and Address Organization Details Recorded Time 7703 Product containin g penicilli n (product) medicatio n Not available Not available Not available 11/17/2022 72573 8001 SNOMED Not Available [facility] 05:02:41 Medications Name Sig Start Date Stop [...] 1 CAPSULE BY MOUTH TWICE A DAY 10/22 completed Not Available Not Available Not Available clonazepa m 1 mg tablet TAKE [...] Updated DateTime 4 170.18 cm 34.3 kg/m2 22583.7 3 g 97.7 [degF] 66 /min 99 % 99 % 116 mm[Hg] 62 mm[Hg] Marjorie Dunn MA [facility] [employer] [facility] 4 14:29:11 Date Recorded Body height Body mass index (BMI) Body weight Body temperature Heart rate Oxygen saturation Oxygen saturation in Arterial blood by Pulse oximetry Systolic blood pressure Diastolic blood pressure Provider Name and Address Organization Details Last Updated DateTime 4 170.18 cm 35.4 kg/m2 328208. 88 g 98.1 [degF] 78 /min 99 % 99 % 108 mm[Hg] 62 mm[Hg] ONOFRE Cohen [facility] [employer] [facility] 4 14:29:33 Date Recorded Body height Body mass index (BMI) Body weight Body temperature Oxygen saturation Oxygen saturation in Arterial blood by Pulse oximetry Pain severity - 0-10 verbal numeric rating [Score] - Reported Heart rate Systolic blood pressure Diastolic blood pressure Provider Name and Address Organization Details Last Updated DateTime 4 170.18 cm 35.9 kg/m2 331392. 65 g 97.2 [degF] 98 % 98 % 0 94 /min 106 mm[Hg] 62 mm[Hg] Marjorie Dunn MA [facility] [employer] [facility] 4 14:39:26 Date Recorded Body height Body mass index (BMI) Body weight Body temperature Heart rate Oxygen saturation Oxygen saturation in Arterial blood by Pulse oximetry Pain severity - 0-10 verbal numeric rating [Score] - Reported Systolic blood pressure Diastolic blood pressure Provider Name and Address Organization Details Last Updated DateTime 4 170.18 cm 33 kg/m2 45618.9 9 g 98.03 [degF] 75 /min 98 % 98 % 8 110 mm[Hg] 64 mm[Hg] ONOFRE Cohen [facility] [employer] [facility] 4 08:46:47 Date Recorded Body height Body mass index (BMI) Body weight Body temperature Heart rate Oxygen saturation Oxygen saturation in Arterial blood by Pulse oximetry Systolic blood pressure Diastolic blood pressure Provider Name and Address Organization Details Last Updated DateTime 5 170.18 cm 29.9 kg/m2 30185.1 4 g 97.9 [degF] 79 /min 100 % 100 % 108 mm[Hg] 74 mm[Hg] Feliap Butt RN [place] [facility] [place] [employer] 5 14:20:50 Social History Question Answer Notes LastModified by Organizat ion Details LastModified Time Tobacco Smoking Status Never Smoker Not Available [employer] 11/17/2022 04:41:35 Do You Have An Advance Directive? No MIGRATION.72161 [id number] Information not available 11/17/2022 What Is Your Level Of Alcohol Consumption? None MIGRATION.97407 17002 Information not available 11/17/2022 What Is Your Level Of Caffeine Consumption? Moderate MIGRATION.64291 33308 Information not available 11/17/2022 How Much Tobacco Do You Chew? None MIGRATION.45841 79295 Information not available 11/17/2022 In The 14 Days Before Symptom Onset, Have You Had Close Contact With A Laboratory-confi rmed COVID-19 While That Case Was Ill? No MIGRATION.20855 06008 Information not available 11/17/2022 In The 14 Days Before Symptom Onset, Have You Had Close Contact With A Person Who Is Under Investigation For COVID-19 While That Person Was Ill? No MIGRATION.45204 39606 Information not available 11/17/2022 Are You Currently Employed? No Information not available 07/26/2024 What Type Of Diet Are You Following? REGULAR MIGRATION.51007 05943 Information not available 11/17/2022 What Is The Highest Grade Or Level Of School You Have Completed Or The Highest Degree You Have Received? [id number] MIGRATION.25389 76697 Information not available 11/17/2022 Have There Been Any Changes To Your Family Or Social Situation? No MIGRATION.53688 75868 Information not available 11/17/2022 What Is The Fluoride Status Of Your Home? Unknown MIGRATION.22113 42986 Information not available 11/17/2022 Are There Any Guns Present In Your Home? No MIGRATION.66149 86459 Information not available 11/17/2022 Do You Use Insect Repellent Routinely? No MIGRATION.14905 14909 Information not available 11/17/2022 Where Do You Live? [place] MIGRATION.11105 72447 Information not available 11/17/2022 Do You Have A Medical Power Of Data Coder Operator? No MIGRATION.64039 71291 Information not available 11/17/2022 What Was The Date Of Your Most Recent Tobacco Screening? 07/26/2024 Information not available 07/26/2024 How Many Children Do You Have? 3 Information not available 02/16/2024 Do You Have Any Pets? Yes MIGRATION.32890 46665 Information not available 11/17/2022 What Is Your Relationship Status? Single MIGRATION.70456 78298 Information not available 11/17/2022 Do You Use Your Seat Belt Or Car Seat Routinely? Yes MIGRATION.27490 41080 Information not available 11/17/2022 Do You Have Smoke And Carbon Monoxide Detectors In Your Home? Yes MIGRATION.07184 17955 Information not available 11/17/2022 Are You Passively Exposed To Smoke? No MIGRATION.77929 93283 Information not available 11/17/2022 Are There Any Smokers In Your House? No MIGRATION.06972 75137 Information not available 11/17/2022 What Types Of Sporting Activities Do You Participate In? None MIGRATION.82855 09404 Information not available 11/17/2022 Do You Feel Stressed (tense, Restless, Nervous, Or Anxious, Or Unable To Sleep At Night)? [id number] MIGRATION.91936 83042 Information not available 11/17/2022 Do You Use Any Illicit Or Recreational Drugs? No MIGRATION.23574 39197 Information not available 11/17/2022 Do You Use Sunscreen Routinely? Yes MIGRATION.12767 39662 Information not available 11/17/2022 Has Tobacco Cessation Counseling Been Provided? No Not Needed-ne joce Smoked MIGRATION.36833 69170 Information not available 11/17/2022 Have You Recently Traveled Abroad? No MIGRATION.31045 87808 Information not available 11/17/2022 Do You Have Any Dietary Restrictions? No MIGRATION.97982 04813 Information not available 11/17/2022 Do You Or Have You Ever Used Any Other Forms Of Tobacco Or Nicotine? No MIGRATION.29768 63415 Information not available 11/17/2022 Sex: Female Functional Status Question Answer Note LastModified by Organizat ion Details LastModified Time What is your exercise level? Occasional MIGRATION.[id number] 26 Information not available 11/17/2022 Mental Status None recorded. Family History Relationship Description Onset Age of this Age Resolved Age Notes LastModified by Organization Details LastModified Time Mother Hypertensive disorder MIGRATION.114 [id number] Not available 11/17/2022 04:43:07 Maternal Grandmother Malignant tumor of colon MIGRATION.631 [id number] Not available 11/17/2022 04:43:07 Medical History Condition Response NERVE DISEASE N BLINDNESS N RHEUMATIC FEVER N KIDNEY STONES N BLADDER PROBLEMS N MRSA N OTHER # 1 Y POLIO N LUNG DISEASE/DISORDER N COPD N RADIATION / CHEMOTHERAPY N Other # 2 N BLOOD DISEASES N EAR OR HEARING PROBLEMS N MUMPS N BOWEL PROBLEMS N DEPRESSION (INCLUDING POST ) Y STROKE/TIA N ULCERS N BENIGN PROSTATIC HYPERPLASIA N MEASLES N MYOCARDIAL INFARCTION N OBESITY N GERD/NAUSEA N ANEURYSM N URINARY/BLADDER/KIDNEY PROBLEMS N CORONARY ARTERY DISEASE (CAD) N ADDICTION CONCERNS N ENDOMETRIOSIS N Impotence N USE OF BLOOD THINNERS N SKIN [...] APNEA N CHICKENPOX N INFECTIOUS DISEASE N HEART ARRHYTHMIA N PROSTATE N INSOMNIA N HIGH CHOLESTEROL / HYPERLIPIDEMIA Y HYPERTHYROIDISM N EYE PROBLEMS Y EDEMA N CHRONIC PAIN SYNDROME N HYPOTHYROIDISM [...] N ALZHEIMER'S DISEASE N Brain Problems N HERPES N DEMENTIA N HEADACHES/MIGRAINES N SEIZURES/EPILEPSY N VASCULAR DISEASE N PACEMAKER N Blood Disorder N DIZZINESS N HEART DISEASE/HEART PROBLEMS N KIDNEY DISEASE N MULTIPLE SCLEROSIS N CARDIAC ARRHYTHMIA N CANCER: SPECIFY N ATRIAL FIBRILLATION N Gall Stones N [...] Recorded Time Tdap 0 completed Becka Martin, COAGULATING BATH OPERATOR [address], [place], [address], [facility] 02/08/2024 10:40:17 Td (adult), 2 Lf tetanus toxoid, preservative free, adsorbed 2 completed Not Available [facility] 08/15/2023 21:52:01 Past Encounters Encounter ID Performer Location Encounter Start Date Encounter Closed Date Diagnosis/Indication Diagnosis SNOMED-CT Code Diagnosis ICD10 Code Diagnosis Note [id number] [facility] Internal [facility] [address] [place], [place] [address]., [facility] [address] [place] [address] 02/05/2021 00:00:00 02/05/2021 18:36:38 [id number] [facility] Internal [facility] [address] [place], [place] [address]., [facility] [address] [place] [address] 02/19/2021 00:00:00 02/19/2021 17:56:10 [id number] [facility] [address] [address] 04/21/2021 00:00:00 04/21/2021 17:43:11 [id number] [facility] [address] [facility] [address] [place] [address] 07/21/2021 00:00:00 07/21/2021 13:28:55 [id number] [facility] [address] [address] 11/20/2021 00:00:00 11/20/2021 11:53:38 [id number] [facility] [address] [address] 03/26/2022 00:00:00 03/26/2022 10:39:53 [id number] [facility] [address] [address] 06/25/2022 00:00:00 06/25/2022 12:05:56 [id number] [facility] Internal [facility] [address] [facility] [place] [address] 10/29/2022 00:00:00 10/29/2022 13:00:30 [id number] Ame Thakur, LINER [employer] Internal Med [facility] [address] [facility] [address] [place] [address] 02/25/2023 09:49:57 02/25/2023 10:24:35 Hypothyroidism 43843987 E03.9 on levothyrox ine Obesity 181523761 E66.9 recommend healthy, well balanced mealsfocus on [...] spent on counseling Vitamin D deficiency 347 02646 E55.9 on supplement Sleep apnea 88559735 G47 .30 sleep study done 04/2021no apnea Prediabetes 303247476 R7 3.03 restart the trulicity per her request pt is aware of side effects, risks, benefitspt denies any personal or family history of MEN II or MTC, denies and personal history of pancreatit ispt knows to call the office if any severe n/v or abdominal pain Vitamin B1 2 deficiency (non anemic) 20892741 E53.8 on PO B12 Hyperlipidemia 52609010 E78.5 no meds, working on lifestyle measures Mixed anxi ety and depressive disorder 100996902 F41.8 follows psychiatry - Selina Jacobson Adderall, fluoxetine , klonopin, zolpidemca office if any change in mood or behavior [id number] Ame Thakur, LINER [employer]-C [facility] Internal Med [facility] [address] [facility] [address] [place] [address] 04/22/2023 13:48:25 04/22/2023 14:44:50 Hypothyroidism 98706424 E03.9 on levothyrox ine Obesity 588806180 E66.9 recommend healthy, well balanced mealsfocus on [...] spent on counseling Vitamin D deficiency 347 68382 E55.9 on supplement - recommend she set an alarm on her phone to help her remember to take it Sleep apnea 17575092 G47 .30 sleep study done 04/2021no apnea Prediabetes 216411415 R7 3.03 on trulicity pt is aware of side effects, risks, benefitspt denies any personal or family history of MEN II or MTC, denies and personal history of pancreatit ispt knows to call the office if any severe n/v or abdominal pain Vitamin B1 2 deficiency (non anemic) 29798643 E53.8 on PO B12- recommend she set an alarm on her phone to help her remember to take it Hyperlipidemia 80449291 E78.5 no meds, working on lifestyle measures Mixed anxi ety and depressive disorder 828246945 F41.8 follows psychiatry - Selina Jacobson Adderall, fluoxetine , klonopin, zolpidemca office if any change in mood or behavior Adult [facility] examination 046523493 Z00.00 Screening for disorder 286778359 Z13.9 [id number] ELIDA Luz S[facility] Internal Med [facility] [address] [facility], [facility] [address] [place] [address] 08/02/2023 15:04:53 08/02/2023 15:36:55 Hypothyroidism 76025144 E03.9 on levothyrox ine Obesity 699187081 E66.9 recommend healthy, well balanced mealsfocus on [...] some weight training. Vitamin D deficiency 347 70833 E55.9 on supplement - recommend she set an alarm on her phone to help her remember to take it Sleep apnea 01268640 G47 .30 sleep study done 04/2021no apnea Prediabetes [id number] R7 3.03 on trulicity, increase per her request pt is aware of side effects, risks, benefitspt denies any personal or family history of MEN II or MTC, denies and personal history of pancreatit ispt knows to call the office if any severe n/v or abdominal pain Vitamin B1 2 deficiency (non anemic) 29110163 E53.8 on PO B12- recommend she set an alarm on her phone to help her remember to take it Hyperlipidemia 07913051 E78.5 no meds, working on lifestyle measures Mixed anxi ety and depressive disorder 909085927 F41.8 follows psychiatry - Selina Jacobson Adderall, fluoxetine , klonopin, zolpidemca office if any change in mood or behavior [id number] Becka Martin APRN [facility] [address] [facility], [address] [place] [address] 11/17/2023 09:42:12 11/17/2023 10:37:34 Anxiety 97457934 F41.9 Attention deficit hyperactivity disorder, predominantly inattentive type 27940930 F90.0 Depressive disorder 3548 9007 F32.A Hypothyroidism 51143454 E03.9 Sleep apnea 37323577 G47 .30 Vitamin B1 2 deficiency (non anemic) 26529361 E53.8 Vitamin D deficiency 347 53684 E55.9 Obesity 094829103 E66.9 Cobalamin deficiency 190 949692 E53.8 Insomnia 625344817 G47.0 0 [id number] Becka Martin APRN [facility] Internal Med [facility] [address] [facility] [address] 02/16/2024 14:08:59 02/16/2024 15:18:07 Sleep apnea 10741450 G47.30 Hypothyroidism 33903082 E03.9 Hyperlipidemia 91211635 E78.5 Vitamin D deficiency 347 48018 E55.9 [id number] Becka Martin APRN [facility] Internal Med [facility] [address] [place] [address] 03/19/2024 14:21:52 03/19/2024 15:13:12 Obstructive sleep apnea syndrome 30332702 G47.33 [id number] Becka Martin APRN [facility] Internal Med [facility] [address] [place] [address] 06/25/2024 14:20:53 06/25/2024 15:06:24 Adult health examination 770683175 Z00.00 Screening for disorder 635496896 Z13.9 Hepatitis C screening 41 4405217 Z11.59 [id number] Becka Martin APRN [facility] Internal Med [facility] [address] [place] [address] 07/26/2024 08:37:20 07/26/2024 09:34:06 Neck pain 89179461 M54.2 Pain in pelvis 66612337 R10.2 [id number] Becka Martin APRN [facility] Internal Med [facility] [address] [place] [address] 09/25/2024 14:11:16 09/25/2024 14:50:34 Mass of left breast [id number] 5760274 N63.20 Health Concerns Section Related Observation LastModified by Organization Detai ls LastModified Time None Recorded Concern Status LastModified by Organization Details LastModified Time None Recorded Advance Directives Directive N: Payers Encounter Date Sequence Insurance Name Policy Number Policy Simms Covered Member ID Simms Member ID Guarantor Name 02/16/2024 2 [place] [facility] Margarette JuarezGenevieve [id number] Margarette Jiménez Genevieve 02/16/2024 1 [place] Margarette Jiménez Genevieve [id number] Margarette Jiménez Genevieve 03/19/2024 2 [place] [facility] Margarette Jiménez Genevieve [id number] Margarette Jiménez Genevieve 03/19/2024 1 [place] Margarette Jiménez Genevieve [id number] Margarette Jiménez Genevieve 06/25/2024 2 [place] OR MEDICARE REPLACEMENT PRIMARY) Margarette Jiménez Genevieve [id number] Margarette Jiménez Genevieve 06/25/2024 1 [facility] (MEDICARE REPLACEMENT/A DVANTAGE - HMO) [id number] Margarette Jiménez Genevieve [id number] Margaretet Jiménez Genevieve 07/26/2024 2 [place]IC[place] REPLACEMENT PRIMARY) Margarette Jiménez Genevieve [id number] Margarette Jiménez Genevieve 07/26/2024 1 [facility] (MEDICARE REPLACEMENT/A DVANTAGE - HMO) [id number] Margarette Jiménez Genevieve [id number] Margarette Jiménez Genevieve 09/25/2024 2 [place] OR MEDICARE REPLACEMENT PRIMARY) Margarette Jiménez Genevieve [id number] Margarette Jiménez Genevieve 09/25/2024 1 [facility] (MEDICARE REPLACEMENT/A DVANTAGE - HMO) [id number] Margarette Jiménez Genevieve [id number] Margarette JuarezGenevieve Notes Date Note Type Note Provider Name [...] and has not lost anything. Becka Martin, COAGULATING BATH OPERATOR [address], [place], [address], [employer] 02/16/2024 15:05:59 03/19/2024 text/html Margarette presents today [...] and has not lost anything. Becka Martin, COAGULATING BATH OPERATOR [address], [place], [address], [employer] 03/19/2024 15:11:46 06/25/2024 text/html Margarette presents today [...] Martin APRN [address], [place], [address], [facility] [employer] [facility] 06/25/2024 15:04:00 07/26/2024 text/html Margarette presents today [...] lost anything. Becka Martin APRN [address], [address], [place], [address], [employer] 07/26/2024 09:33:51 09/25/2024 text/html Margarette presents today [...] and has not lost anything. Becka Martin, COAGULATING BATH OPERATOR [address], [place], [address], [employer] 09/25/2024 14:39:32 OBGyn Episode No OBEpisode recorded.
--- OUTSIDE RECORDS SUMMARY | 2024-12-25 09:53 | XMS_ITS | Data Portability ---
Author Organization [facility] [place] Address [address] [place] [address] [place] [address] Assessment Encounter Date Assessment Date Assessment LastModified by Organization Details LastModified Time 05/17/2022 05/17/2022 Annual gynecological exam performed. Patient will come back in a year unless there are new symptoms. [facility] 05/17/2022 11:51:42 01/25/2023 01/25/2023 Annual gynecological exam performed. Patient will come back in a year unless there are new symptoms. Not available 01/25/2023 15:14:12 Plan of Treatment Reminders Order Date Submit Date Provider Last Modified By Organization Details Last Modified Time Details Appointments None recorded . Lab urinalys is, reflex culture 2021 022 [facility] (Lab), [address], [place], [address], 15:51:31 pregnanc y test, urine 2021 022 [place] [facility] [address], [place], [address], 12:19:24 urinalys is, dipstick [address] [place] [address] [facility] [address], [place], [address], 08/26/202 2 16:32:26 Referral None recorded . Procedures None recorded . Surgeries None recorded . Imaging US, pelvis, complete 2022 023 [email or web address], [place], [address], 3 12:05:43 Medication Orders fluconaz ole 150 mg tablet 2023 024 [facility]/Pharmacy #[id number], [address], [place], [address], 4 16:07:42 nystatin -triamci nolone 100,000 unit/gra m-0.1 % topical ointment 2023 024 [facility]/Pharmacy #[id number], [address], [place], [address], 4 16:07:57 nitrofur antoin monohydr ate/macr ocrystal s 100 mg capsule 2021 022 vschroedter Not available 2 11:52:54 Pyridium 100 mg tablet 2021 022 ROXIE Not available 2 11:59:33 Diflucan 200 mg tablet 2020 021 vschroedter Not available 2 11:52:45 Nuvessa 1.3 % (65 mg/5 gram) vaginal gel 2020 021 Not available 3 15:15:18 Patient TargetsNo targets recorded. Patient InstructionsNo instructions recorded. Reason for Referral None Reported. Results Created Date Observation Date Name Description Value Unit Range Abnormal Flag Note LastModifiedBy Organization Detail LastModifiedTime 10/16/19 21 10/16/2020 US, obste tric, follo w-up interpretati on Not Available Romario vargas [address], [place], [address], 01/21/2020 11:00:55 10/30/19 21 10/30/2020 US, chelsi loya, anel w-jamie ramirez interpretati on Not Available [facility] [address], [place], [address], 02/21/2020 13:09:22 05/14/20 22 05/14/2022 URINA LYSIS , WITH MICRO SCOPI C urinalysis, with microscopic CANCEL LED Recrow ered Not Available [facility] [address] [place] [address], [address], 05/15/2022 03:56:12 05/14/2005/14/2022 URINA LYSIS , COMPL ETE (QUES T) color DARK YELLOW yellow Not Available [facility] [address] [place] [address], [address], 05/17/2022 02:38:15 05/14/20 22 05/14/2022 URINA LYSIS , COMPL ETE (QUES T) apperance TURBID clear abnormal Not Available [facility] [address] [place] [address], [address], 05/17/2022 02:38:15 05/14/20 22 05/14/2022 URINA LYSIS , COMPL ETE (QUES T) specific gravity 1.021 1.001- 1.035 Not Available [facility] [address] [place] [address], [address], 05/17/2022 02:38:15 05/14/20 22 05/14/2022 URINA LYSIS , COMPL ETE (QUES T) pH 7.0 5.0-8. 0 Not Available [facility] [address] [place] [address], [address], 05/17/2022 02:38:15 05/14/20 22 05/14/2022 URINA LYSIS , COMPL ETE (QUES T) glucose NEGATI VE negati ve Not Available [facility] [address] [place] [address], [address], 05/17/2022 02:38:15 05/14/20 22 05/14/2022 URINA LYSIS , COMPL ETE (QUES T) bilirubin NEGATI VE negati ve Not Available [facility] [address] [place] [address], [address], 05/17/2022 02:38:15 05/14/20 22 05/14/2022 URINA LYSIS , COMPL ETE (QUES T) ketones TRACE negati ve abnormal Not Available [facility] [address] [place] [address], [address], 05/17/2022 02:38:15 05/14/20 22 05/14/2022 URINA LYSIS , COMPL ETE (QUES T) occult blood 1+ negati ve abnormal Not Available [facility] [address] [place] [address], [address], 05/17/2022 02:38:15 05/14/20 22 05/14/2022 URINA LYSIS , COMPL ETE (QUES T) protein 2+ negati ve abnormal Not Available [facility] [address] [place] [address], [address], 05/17/2022 02:38:15 05/14/20 22 05/14/2022 URINA LYSIS , COMPL ETE (QUES T) nitrite POSITI VE negati ve abnormal Not Available [facility] [address] [place] [address], [address], 05/17/2022 02:38:15 05/14/20 22 05/14/2022 URINA LYSIS , COMPL ETE (QUES T) leukocyte esterase 3+ negati ve abnormal Not Available [facility] [address] [place] [address], [address], 05/17/2022 02:38:15 05/14/20 22 05/14/2022 URINA LYSIS , COMPL ETE (QUES T) WBC PACKED /hpf < or = 5 abnormal Not Available [facility] [address] [place] [address], [address], 05/17/2022 02:38:15 05/14/20 22 05/14/2022 URINA LYSIS , COMPL ETE (QUES T) RBC 10-20 /hpf < or = 2 abnormal Not Available [facility] [address] [place] [address], [address], 05/17/2022 02:38:15 05/14/20 22 05/14/2022 URINA LYSIS , COMPL ETE (QUES T) squamous epithelial cells NONE SEEN /hpf < or = 5 Not Available [facility] [address] [place] [address], [address], 05/17/2022 02:38:15 05/14/20 22 05/14/2022 URINA LYSIS , COMPL ETE (QUES T) bacteria NONE SEEN /hpf none seen Not Available [facility] [address] [place] [address], [address], 05/17/2022 02:38:15 05/14/20 22 05/14/2022 URINA LYSIS , COMPL ETE (QUES T) hyaline cast NONE SEEN /lpf none seen Perfo rming Organ izati on Infor matio n: Site ID: CB Name: [facility] Addre ss: [address] [place] [address] Direc tor: Johanny watson M.D. Not Available [facility] [address] [place] [address], [address], 05/17/2022 02:38:15 05/14/20 22 05/14/2022 CULTU RE: URINE result report SEE RESULT S BELOW Test: Cultu re: Urine Speci men Sourc e: Urine Voide d Speci men Type: Urine Speci men Date: 2021 4:48 PM Resul t Date: 2021 1:35 AM Resul t Statu s: Final resul t Abnor mal: No Resul ting Lab: [facility] [address] [facility] [facility] [address] Tel: [phone] CULTU RE ----- ----- ----- --- Cultu re resul t (>=3 organ isms prese nt) indic ates possi ble conta minat ion. Repea t cultu re if sympt oms indic ate. Not Available [facility] [address] [place], [address], 05/17/2022 02:38:15 05/14/2005/14/2022 urina lysis , dipst ick Leukocytes + Not Available Rosenda romero [address], [place], [address], 05/14/2022 16:31:41 05/14/20 22 05/14/2022 urina lysis , dipst ick Nitrite NEG Not Available [place] [address], [place], [address], 05/14/2022 16:31:41 05/14/20 22 05/14/2022 urina lysis , dipst ick Urobilinogen NEG Not Available Allie mahmood [address], [place], [address], 05/14/2022 16:31:41 05/14/20 22 05/14/2022 urina lysis , dipst ick Protein ++ Not Available [place] [address], [place], [address], 05/14/2022 16:31:41 05/14/20 22 05/14/2022 urina lysis , dipst ick pH 7 Not Available [place] [address], [place], [address], 05/14/2022 16:31:41 05/14/20 22 05/14/2022 urina lysis , dipst ick Blood ++ Not Available [place] [address], [place], [address], 05/14/2022 16:31:41 05/14/20 22 05/14/2022 urina lysis , dipst ick Specific [place] 1.010 Not Available Romario vargas [address], [place], [address], 05/14/2022 16:31:41 05/14/20 22 05/14/2022 urina lysis , dipst ick Ketone NEG Not Available [place] [address], [place], [address], 05/14/2022 16:31:41 05/14/20 22 05/14/2022 urina lysis , dipst ick Bilirubin NEG Not Available Sandro booth [address], [place], [address], 05/14/2022 16:31:41 05/14/20 22 05/14/2022 urina lysis , dipst ick Glucose NEG Not Available [place] [address], [place], [address], 05/14/2022 16:31:41 05/14/20 22 05/14/2022 urina lysis , dipst ick Appearance CLOUDY Not Available Rosenda romero [address], [place], [address], 05/14/2022 16:31:41 05/14/20 22 05/14/2022 urina lysis , dipst ick Color YELLOW Not Available [place] [address], [place], [address], 05/14/2022 16:31:41 05/17/20 22 05/17/2022 IMAGE GUIDE D PAP AND HPV REGAR DLESS image guided Pap, HPV regardless of Pap result SEE RESULT S BELOW CASE REPOR T: Cytol ogy Gynec ologi holli Repor t Case: [id number] Autho jo-ann rider Provi suzie: Jailyn Stanley NP Colle cted: 05/17 1344 Order ing Locat ion: [place] [facility] Recei yumiko: 05/18 0640 First Scree n: Rhoda Messina Speci men: Fer brooks Pap - Image d, Cervi x STATE MENT OF ADEQU ACY: Satis facto ry for evalu ation Trans forma tion zone compo nent prese nt FINAL DIAGN OSIS: Negat flaquito for Intra epith elial Lesnicci ureña or Katja murray (NIL) . Elect rohan mendosa mauri d by Rhoda Messina on 022 at 6:43 PM ----- ----- ----- ----- ----- ----- ----- ----- ----- ----- ----- ----- ----- ----- ----- ----- ----- ---- HPV RESUL TS: HPV mRNA E6/E7 : No HPV mRNA Detec jennifer NOTE: This high risk HPV mRNA assay detec ts fourt een high- risk HPV types (16, 18, 31, 33, 35, 39, 45, 51, 52, 56, 58, 59, 66, 68) witho ut diffe renti ation . COMME NT: Note: This speci men was revie wed by a Cytot echno logis t and/o r Patho logis t (as indic ated in this repor t) after evalu ation using the Thinp rep Imagi ng Syste m. CLINI HOLLI INFOR MATIO N: Menst rual Statu s: LMP (if appli cable ): Clini holli Histo ry/Pr eviou s Pap: Type of Neopl west (if appli cable ): Signi fican t Clini holli Findi ngs: Other Histo ry: Hormo cesario (if appli cable ): PAP EDUCA ITZ L NOTE: The Pap Test is a scree todd test with an inher ent false negat flaquito rate. Liqui d-bas ed sampl ing may decre ase, but will not elimi susana, false negat flaquito resul ts. A negat flaquito resul t does not precl ude the prese nce and/o r devel opmen t of disea se, since the prese nce of abnor mal cells in the sampl e depen ds on the locat ion of the lesio n and sampl ing techn ique. Lori nued regul ar scree todd is the best metho d of cance r preve ntion . If repor jennifer cytol ogic findi ng do not corre late with physi holli and/o r histo rical findi ngs, furth er inves tigat ion is recom torito d, as clini hank warra nted. Not Available [facility] [address] [place], [address], 05/21/2022 19:46:29 05/17/20 22 05/17/2022 TRICH OMONA S VAGIN MARIA A (RRNA ) trichomonas vaginalis ribosomal RNA (rrna) Negati ve negati ve Not Available [facility] [address] [place], [address], 05/21/2022 19:46:30 05/17/20 22 05/17/2022 CT/GC (AUDREY) , THINP REP VIAL chlamydia trachomatis, PCR Negati ve negati ve Not Available [facility] [address] [place], [address], 05/21/2022 19:46:31 05/17/20 22 05/17/2022 CT/GC (AUDREY) , THINP REP VIAL neisseria gonorrhoeae, PCR Negati ve negati ve Not Available [facility] [address], [place], [address], 05/21/2022 19:46:31 05/17/20 22 05/17/2022 pregn brenda test, urine HCG negati ve Not Available [place] [address], [place], [address], 05/17/2022 12:18:58 09/26/19 24 09/26/2023 VAGIN ITIS/ VAGIN OSIS, DNA PROBE toya sp. detection, direct probe Positi ve negati ve abnormal Not Available [facility] (Lab) [address], [place], [address], 09/27/2023 12:54:36 09/26/19 24 09/26/2023 VAGIN ITIS/ VAGIN OSIS, DNA PROBE gardnerella vag. detection, direct probe Positi ve negati ve abnormal Not Available [facility] (Lab) [address], [place], [address], 09/27/2023 12:54:36 09/26/19 24 09/26/2023 VAGIN ITIS/ VAGIN OSIS, DNA PROBE trichomonas vag. detection, direct probe Negati ve negati ve Not Available [facility] (Lab) [address] [place], [address], 09/27/2023 12:54:36 Result Notes None recorded. Problems Name Problem SNOMED Code Status Onset Date Resolution Date Notes Provider Name and Address Organization Details Recorded Time Pregnanc y 27148875 Completed 201908/04/2020 Alda Blanco [facility] [place] - [facility] 0 12:19:04 Hypothyr oidism 93480818 Active 2018 Hypothyr oidism;R ecorded Elsewher e: No Locat ion: [facility] S ource: EHR Prop Maker mirza: N Practi ce ID: [id number] Indio lable Time: 09:30:00 AM Not Available [facility] 0 17:31:52 Pre-exis ting type 1 diabetes mellitus 612494735 Active 2023 Marlys adams, [facility] 4 16:01:24 Mixed anxiety and depressi ve disorder 433812334 Active 2023 Marlys Nguyen [facility] 4 16:01:41 Attentio n deficit hyperact ivity disorder 194838612 Active 2023 Marlys Nguyen [facility], [facility] 4 16:01:52 Problem Notes None recorded. Procedures Surgical History Date Name Laterality Status Provider Name and Address Organization Details Recorded Time 3 Date of Last Pap Smear completed Marlys Nguyen [facility] 10/06/2023 13:09:15 2 IUD Removal completed EULALIO Dailey [address], [place], [address], [facility] 05/17/2022 12:10:42 0 IUD Insertion completed EULALIO Stevens- [address], [place], [address], [facility] 08/26/2020 15:00:46 Imaging Results None recorded. Procedure Notes None recorded. Medical Equipment None Reported. Allergies Allergen ID Allergen Name Allergen Category Reaction Reaction Severity Criticality Documentation Date Start Date Code Code System Note Provider Name and Address Organization Details Recorded Time 53 Product containin g penicilli n (product) medicatio n Not available Not available Not available 12/26/2019 36614 [id number] SNOMED Marlys Nguyen [facility] 0 13:53:43 Medications Name Sig Start Date Stop Date Status Note LastModified by Organization Details LastModified Time Mirena 21 mcg/24 hr (up to 8 years) 52 mg intrauter ine device mirena inserted 01/25 completed Not Available Not Available Not Available doxycycli ne hyclate 100 mg capsule 01/25 completed Not Available Not Available Not Available fluconazo le 150 mg tablet TAKE 1 TABLET BY MOUTH ON DAY 1, THEN TAKE THE SECOND TABLET 3 DAYS AFTER TAKING THE FIRST TABLET active Not Available Not Available No t Available fluconazo le 200 mg tablet Take 1 tablet every other day x 3 doses. 05/17 completed Not Available Not Available Not Available metronida zole 0.75 % (37.5 mg/5 gram) vaginal gel INSERT 1 APPLICAT ORFUL VAGINALL Y ONCE DAILY AT BEDTIME FOR 5 DAYS active Not Available Not Available No t Available dextroamp hetamine- amphetami ne 10 mg tablet 05/17 completed Not Available Not Available Not Available clonazepa m 0.5 mg tablet 12/25 completed Not Available Not Available Not Available Pyridium 100 mg tablet Take 1 tablet 3 times a day by oral route for 7 days. 05/17 completed Not Available Not Available Not Available terconazo le 0.8 % vaginal cream Insert 1 applicat orful every day by vaginal route in the evening for 3 days. 08/26 completed Not Available Not Available Not Available clonazepa m 1 mg tablet TAKE 1 TABLET BY MOUTH UP TO THREE TIMES A DAY NEEDED FOR 30 DAYS active Not Available Not Available No t Available phentermi ne 15 mg capsule TAKE 1 CAPSULE BY MOUTH EVERY DAY FOR 30 DAYS 01/25 completed Not Available Not Available Not Available metronida zole 500 mg tablet Take 1 tablet every 12 hours by oral route for 7 days. 08/26 completed Not Available Not Available Not Available phentermi ne 37.5 mg tablet TAKE 1 TABLET BY MOUTH EVERY DAY FOR 30 DAYS 01/25 completed Not Available Not Available Not Available levothyro xine 25 mcg tablet TAKE 1 TABLET BY MOUTH IN THE MORNING ON AN EMPTY STOMACH active Not Available Not Available No t Available nystatin- triamcino lone 100,000 unit/gram -0.1 % topical ointment APPLY TO THE AFFECTED AREA(S) BY TOPICAL ROUTE 2 TIMES PER DAY FOR 5 DAYS active Not Available Not Available No t Available cyanocoba kelsey (vit B-12) 500 mcg tablet TAKE 1 TABLET BY MOUTH EVERY DAY active Not Available Not Available No t Available clotrimaz ole-betam ethasone 1 %-0.05 % topical cream 05/17 completed Not Available Not Available Not Available dextroamp hetamine- amphetami ne 20 mg tablet TAKE 1 & 1/4 TABLETS BY MOUTH TWICE A DAY FOR 30 DAYS active Not Available Not Available No t Available prednison e 50 mg tablet TAKE 1 TABLET BY MOUTH EVERY DAY FOR 7 DAYS 09/26 completed Not Available Not Available Not Available metronida zole 0.75 % topical cream APPLY A PEA SIZED AMOUNT TO FACE TWICE DAILY active Not Available Not Available No t Available ergocalci ferol (vitamin D2) 1,250 mcg (50,000 unit) capsule TAKE 1 CAPSULE BY MOUTH ONCE WEEKLY active Not Available Not Available No t Available zolpidem 10 mg tablet TAKE 1 TABLET BY MOUTH EVERY DAY AT BEDTIME NEEDED FOR 30 DAYS active Not Available Not Available No t Available fluoxetin e 20 mg capsule TAKE 1 CAPSULE BY MOUTH EVERY DAY FOR 30 DAYS active Not Available Not Available No t Available fluticaso ne propionat e 50 mcg/actua tion nasal spray,dustin pension SPRAY ONE SPRAY INTO EACH NOSTRIL EVERY 12 HOURS NEEDED FOR NASAL CONGESTI ON. 01/25 completed Not Available Not Available Not Available sertralin e 50 mg tablet take 1 tablet by oral route every day 12/25 completed Not Available Not Available Not Available doxycycli ne hyclate 100 mg tablet TAKE 1 TABLET BY MOUTH TWICE A DAY WITH FOOD AND A FULL GLASS OF WATER FOR 3 MONTHS active Not Available Not Available No t Available dextroamp hetamine- amphetami ne 5 mg tablet 05/17 completed Not Available Not Available Not Available spironola ctone 50 mg tablet 12/25 completed Not Available Not Available Not Available hydroxyzi ne pamoate 25 mg capsule 08/26 completed Not Available Not Available Not Available nitrofura ntoin monohydra te/macroc rystals 100 mg capsule Take 1 capsule every 12 hours by oral route for 7 days. 05/17 completed Not Available Not Available Not Available Vitamin D 01/25 completed Not Available Not Available Not Available Prozac 05/17 completed Not Available Not Available Not Available Adderall 05/17 completed Not Available Not Available Not Available thyroid (pork) 15 mg tablet 05/17 completed Prescrib ed [facility] e: Yes Loca tion: [facility] M odify By: juan r keith DateTime : 07/17/20 09:30:00 AM Not Available Not Available Not Available 28 mg iron-800 mcg tablet 12/25 completed Not Available Not Available Not Available Vitamins Plus Low Iron 27 mg iron-1 mg tablet 08/05 completed Not Available Not Available Not Available Trulicity 1.5 mg/0.5 mL subcutane ous pen injector INJECT 1.5 MG SUBCUTAN EOUSLY ONE TIME PER WEEK 09/26 completed Not Available Not Available Not Available Trulicity 0.75 mg/0.5 mL subcutane ous pen injector INJECT THE CONTENTS OF 1 PEN UNDER THE SKIN ONCE WEEKLY 09/26 completed Not Available Not Available Not Available Nuvessa 1.3 % (65 mg/5 gram) vaginal gel Insert 1 applicat orful every day by vaginal route at bedtime for 1 day. 01/25 completed Not Available Not Available Not Available Rexulti 2 mg tablet 1 TABLET ORAL ONCE DAILY 30 DAYS active Not Available Not Available No t Available Rexulti 05/17 completed Not Available Not Available Not Available OneTouch Ultra Blue Test Strip 04/07 completed Not Available Not Available Not Available OneTouch Ultra2 Meter 04/07 completed Not Available Not Available Not Available OneTouch Delica Plus Lancet 30 gauge 04/07 completed Not Available Not Available Not Available Trulicity 3 mg/0.5 mL subcutane ous pen injector INJECT 0.5 ML UNDER THE SKIN ONCE WEEKLY active Not Available Not Available No t Available Paxlovid 300 mg (150 mg x 2)-100 mg tablets in a dose pack PLEASE SEE ATTACHED FOR DETAILED DIRECTIO NS 09/26 completed Not Available Not Available Not Available Vitals Date Recorded Body height Body mass index (BMI) Body weight Systolic blood pressure Diastolic blood pressure Provider Name and Address Organization Details Last Updated DateTime 05/17/2022 170.18 cm 32.2 kg/m2 68891.31 g 118 mm[Hg] 81 mm[Hg] Shalonda Treviño [place] - [facility] 2 11:52:11 Date Recorded Body height Body mass index (BMI) Body weight Systolic blood pressure Diastolic blood pressure Provider Name and Address Organization Details Last Updated DateTime 01/25/2023 170.18 cm 33.2 kg/m2 54519.58 g 113 mm[Hg] 69 mm[Hg] Rox Leeer [facility] 3 15:14:50 Date Recorded Body height Body mass index (BMI) Body weight Systolic blood pressure Diastolic blood pressure Provider Name and Address Organization Details Last Updated DateTime 09/26/2023 170.18 cm 34.3 kg/m2 41848.73 g 112 mm[Hg] 73 mm[Hg] Marlys Nguyen [facility] 4 15:59:42 Date Recorded Body height Body mass index (BMI) Body weight Systolic blood pressure Diastolic blood pressure Provider Name and Address Organization Details Last Updated DateTime 10/21/2020 170.18 cm 37.1 kg/m2 978780.3 9 g 121 mm[Hg] 78 mm[Hg] Alda Bella [facility] 1 10:32:38 Social History Question Answer Notes LastModified by Organizat ion Details LastModified Time Tobacco Smoking Status Never Smoker Marlys Nguyen [facility], [facility] 12/26/2019 14:04:14 What Is Your Level Of Alcohol Consumption? Occasional Information not available 10/21/2020 If You Are , What Was Your Level Of Alcohol Consumption Prior To ? Occasional [email or web address] Information not available 12/26/2019 Are You Blind Or Do You Have Difficulty Seeing? No Information n ot available 05/17/2022 What Is Your Level Of Caffeine Consumption? Heavy Information not available 10/21/2020 In The 14 Days Before Symptom Onset, Have You Had Close Contact With A Laboratory-confirm ed COVID-19 While That Case Was Ill? No Information n ot available 01/25/2023 In The 14 Days Before Symptom Onset, Have You Had Close Contact With A Person Who Is Under Investigation For COVID-19 While That Person Was Ill? No Information not available 01/25/2023 Have You Been To An Area Known To Be High Risk For COVID-19? No Information not available 01/25/2023 Are You Deaf Or Do You Have Serious Difficulty Hearing? No Information not available 05/17/2022 What Type Of Diet Are You Following? REGULAR Information n ot available 05/17/2022 Marital Status Unknown [email or web address] Informatio n not available 12/26/2019 How Many Children Do You Have? 3 Information not available 04/07/2020 Do You Use Your Seat Belt Or Car Seat Routinely? Yes [email or web address] Information not available 09/26/2023 Do You Have Smoke And Carbon Monoxide Detectors In Your Home? Yes Information not available 09/26/2023 Smoking Pre- No Information not available 12/26/2019 Do You Feel Stressed (tense, Restless, Nervous, Or Anxious, Or Unable To Sleep At Night)? [id number] [email or web address] Information not available 09/26/2023 Do You Use Sunscreen Routinely? Yes [email or web address] Information not available 09/26/2023 Do You Or Have You Ever Used Any Other Forms Of Tobacco Or Nicotine? No Information not available 10/21/2020 Sex: Female Functional Status Question Answer Note LastModified by Organizat ion Details LastModified Time Do you have difficulty walking or climbing stairs? No Information not available 05/17/2022 Are you able to walk? YESWOREST Information not available 05/17/2022 Are you able to care for yourself? Yes Information not available 05/17/2022 Do you have difficulty dressing or bathing? No Information not available 05/17/2022 What is your exercise level? Occasional [email or web address] Information not available 12/26/2019 Mental Status None recorded. Family History Relationship Description Onset Age of this Age Resolved Age Notes LastModified by Organization Details LastModified Time Mother Hypertensive disorder [email or web address] Not available 12/25 13:59:00 Mother Hypercholest erolemia Not available 12/25 13:59:09 Mother Disorder of thyroid gland [email or web address] Not available 12/25 13:59:21 Mother Anxiety disorder [email or web address] Not available 12/25 14:07:41 Father Malignant tumor of lung [email or web address] Not available 12/25 14:01:46 Maternal Grandmother Malignant tumor of breast [email or web address] Not available 12/25 14:02:05 Maternal Grandmother History of hypertension Not available 14:02:35 Sister Blood coagulation disorder [email or web address] Not available 12/25 14:02:47 Brother Chronic hepatitis [email or web address] Not available 12/25 14:04:02 Notes:Brother: Hepatitis Fat her: Cancer, lung Maternal grandmother: Cancer, breast, Hypertension Mother: Hypertension, High cholesterol, Thyroid disease Sister: Bleeding disorder Medical History Condition Response Allergies (Food, seasonal, environmental ) N Other N Breast Cancer N Drug/Latex Allergies/Reactions Y Blood Transfusion N Dermatologic Disorders Y Lung Disease N Defects or Inherited Disease N Breast Problem N Gestational Diabetes N Hematologic disorders N Anesthesia Complications N History of STI N Deep Vein Thrombosis N Polycystic ovary syndrome N Anxiety Disorder Y Autoimmune disease N Arthritis N Infertility N Polyps N Acid Reflux (GERD) Y History of abnormal pap N Cancer N Stroke N Varicosities N Neurologic/Epilepsy Y Endometriosis N High Cholesterol N Headaches N Fibromyalgia N Kidney Disease N Heart Problems N Kidney or Bladder Problems N Thyroid Problems Y GI Problems N Eating Disorder N Anemia N Art (IVF or FET) N Psychiatric Illness Y Ovarian Cancer N Diabetes Y Pulmonary (TB, Asthma) N Hepatitis/Liver Disease N No Past Medical History N Eczema N Urinary Tract Infection N Abuse/Domestic Violence N Asthma N Trauma/Violence N Depression/ depression Y Heart Disease N Pre-Eclampsia N Hypertension N Osteoporosis N Thrombophilias N Gynecological History Statement/Question Response Date of Last Mammogram Date of LMP 09/05/2023 Was last menstrual period normal N STIs/STDs N HPV Vaccine N Current Control Method Partner Vas ectomy Are cycles usually normal N Sexually Active? Y Menses Monthly Y Date of DEXA bone scan Date of Last Pap Smear 01/25/2023 Sexual Problems? Y LMP Unknown Obstetrics History GPAL:G 5 P 3 0 2 3 Type Value Full Term 3 Spontaneous 2 Living 3 Total 5 Past Encounters Encounter ID Performer Location Encounter Start Date Encounter Closed Date Diagnosis/Indication Diagnosis SNOMED-CT Code Diagnosis ICD10 Code Diagnosis Note [id number] Cadence Marin CNM [facility] [address],[place] [address] 12/26/2019 11:19:32 12/31/2019 14:09:14 [id number] Maxi Montanez MD [place] [address],[place] [address] 12/26/2019 11:19:32 01/01/2020 03:49:32 [id number] [address],[place] [address] 01/07/2020 10:48:33 01/07/2020 12:18:41 [facility]ine [facility] [id number] Z34.93 [id number] [address],[place] [address] 01/21/2020 09:58:32 01/21/2020 12:05:38 Routine care 384080562 Z34.93 [id number] [address],[place] [address] 01/21/2020 10:25:56 01/21/2020 13:32:17 Uterine size for dates discrepancy 038653175 O26.843 Z3A.33 [id number] Jing [facility] [address],[place] [address] 02/04/2020 09:57:43 02/04/2020 11:02:34 [id number] [address],[place] [address] 02/13/2020 09:49:35 02/13/2020 12:36:47 [id number] [facility] [address],[place] [address] 02/18/2020 14:33:50 02/18/2020 15:42:26 Routine care [id number] Z34.93 [id number] Dyana Hernandez [facility] [address],[place] [address] 02/18/2020 15:51:34 02/18/2020 16:04:55 Gestational diabetes mellitus class A1 [id number] O24.410 [id number] [facility] [address],[place] [address] 02/21/2020 11:23:33 03/12/2020 10:03:29 Routine care 431715922 Z34.93 [id number] [facility] [address],[place] [address] 02/21/2020 11:37:21 02/21/2020 17:41:13 Excessive growth affecting management of mother 72315002 O36.63X0 Z3A.37 [id number] [facility] [address],[place] [address] 02/21/2020 12:55:37 02/29/2020 13:17:33 Gestational diabetes mellitus class A1 62371167 O24.410 [id number] [facility] [address],[place] [address] 02/25/2020 15:52:47 02/25/2020 17:45:06 Gestational diabetes mellitus class A1 67686149 O24.410 [id number] [facility] [address],[place] [address] 02/25/2020 15:53:08 02/26/2020 15:56:21 [id number] [facility] [address],[place] [address] 02/25/2020 16:39:42 02/25/2020 17:43:55 condition affecting obstetrical care of mother 236545385 O36.8330 Z3A.38 [id number] [facility] [address],[place] [address] 02/28/2020 12:15:45 02/28/2020 16:28:36 Gestational diabetes mellitus class A1 68905349 O24.410 [id number] [facility] [address],[place] [address] 03/13/2020 09:20:21 04/27/2020 14:41:13 Mixed anxiety and depressive disorder 637807680 F41.8 [id number] Jing Fuentes [place] [address],[place] [address] 04/07/2020 13:41:46 04/07/2020 22:19:27 state 14832696 Z39.2 Continue to watch for signs/symp toms of post depression .She is being followed by psyciatris t and new medication has really helped. Return one year from last pap smear for a well woman exam. Patient received above instructio ns, and questions have been answered. If you have any questions please call or respond to this email. Patient was made aware of the patient portal and may obtain a paper copy of today's plan if desiredp Contracept ion care management 826082601 Z30.9 Discussed all options. Pt desires tubal ligation. She is aware that it is perm. Discussed risk vs benefit. Pt case created. [id number] [address] 08/05/2020 10:39:00 08/06/2020 11:06:23 Vaginitis 29767017 N76.0 Discussed use of mild soap like dove or ivory, cotton underwear w/out dye, hypoallerg enic detergent, wipe from front to back, avoid tub baths, keep perineum clean and dry, d/c use of baby wipes. Encouraged daily intake of yogurt or womens health probiotic. Internal and external affirm collected along with SDT screening. Contracept ion care management 402714190 Z30.9 Discussed all options. Pt desires mirena. Risks and benefits discussed. Pt will need to call on the first day of her cycle to schedule placement. [id number] EULALIO [facility] [address],[place] [address] 08/26/2020 14:25:34 08/26/2020 14:53:44 Contraception care management 838881567 Z30.9 Insertion of intrauterine contraceptive device 62803422 Z30.430 Patient is on her cycle, HCG and here for IUD placement. She has been counseled on all of the r/b/a of placement of an intrauteri ne device that include but are not limited to uterine perforatio n, injury to cervix, vagina, bladder, and bowel.Risk s of bleeding due to injury or increased irregular bleeding due to progestin effect of the device. Risks of infection would be increased within the first 21 days of placement with concommite nt cervicitis . She understand s that the device will need to be removed in this instance due to increased risk of Pelvic inflammato ry disease. Patient is aware she is at highter risk for STD and if contracted she could lose her fertility. Pt is aware that if ocurs that she should contact office immediatel y to rule out ectopic which could be life threatenin g. IUD will also need to be removed and this could cause miscarriag e. Patient also informed that in the event her strings are absent or embedded at the time of removal she may need to have the IUD surgically removed. She was informed of the above and properly consented. IUD placed w/o complicati on. Patient should return to office after next period to check for string placement. Patient to expect irregular bleeding but should be seen in the ED if bleeding increases to soaking a pad an hour for at least 2 hours. She verbalized understand ing. Mirdiane placedRTO x 6-8wks iUD check [id number] EUALLIO [facility] [address] [address] 10/21/2020 10:23:22 10/21/2020 10:47:18 Intrauterine device check 443679498 Z30.431 Patient is here today for 4wk IUD string check. She reports she is doing well after placement of this device. She is eating/dri nking/slee ping well. She has no adverse side effects from use of this device. She wishes to continue this therapy. Vaginitis 21386026 N76.0 Treated for BV/yeast today Nuvessa sample given with nehal cheung reviewed. Diflucan sent yeast. Time spent in visit is a total of 15 mins with at least 50% of visit consisting of counseling and review of plan of care. Additional precaution michelle measures were taken to minimize potential exposure to the Covid-19 virus during this patient s visit, including available hand solicitor patent upon arrive, temperatur e check and being asked a series of screening questions. All staff wore face coverings during this encounter, as well as provided additional cleaning and sanitizing of all surfaces, including countertop s, pens, chairs, door handles, light switches, etc, prior to and following the patient s visit. [id number] Lou Mcbride [place] [address],[place] [address] 05/14/2022 11:04:19 05/14/2022 17:22:46 Urinary symptoms 184568872 R39.9 [id number] EULALIO Dailey [place] [address],[place] [address] 05/17/2022 11:26:28 05/17/2022 12:48:17 Gynecologic examination 66414472 Z01.419 Take Calcium with Vitamin D 1200mg daily if not receiving in daily diet. It is strongly advised to have an annual flu shot and up can obtain at most pharmacies . If you have not had a TDap shot in the last 10 years you should obtain one as well. Discussed with patient & provided with informatio n regarding Gardisil vaccine to prevent the 4 strains for HPV that cause cervical cancer if under age 26. Encourage safe sexual practices, to use condoms and limit partners if not already in a monogamous relationsh ip. Do monthly self breast exams. Have mammogram yearly or every other year depending on family history. BRCA testing is now available for patients with strong genetic history of female cancer. If interested contact the office. Engage in daily exercise of low impact aerobic exercise 45-60 minutes 4-5 times weekly. Avoid tobacco and illicit drugs as well as using moderation with alcohol intake less than 1-2 8 oz beverages daily. This lifestyle behavior pattern will lead to less health conditions and longer life span. If BMI greater than 25 weight watchers or dietary consult advised. Patient received above instructio ns, and questions have been answered. If you have any questions please call or respond to this email. Patient was made aware of the patient portal and may obtain a paper copy of today's plan if desired. [facility] - Mirena IUD, inserted 08/26/2020. Would like IUD removed today. IUD has made intercours e uncomforta ble and she would like removal done today. States partner is unable to have children.I UD removed today without any immediate complicati ons noted.Hx of abnormal pap and few years ago per patient, no procedures requiredPa p last around 2018Pap done todaySTI testing added to papUTD with PCPGenetic testing, discussedS he needs a repeat UA in about 4 weeks, RBC in last UANext well woman exam due in 1 yearIf symptoms persist now that IUD is removed, RTC for further evaluation Time spent in visit is a total of 40 mins with at least 50% of visit consisting of counseling and review of plan of care. Contracept ion care management 935903797 Z30.9 Venereal d isease screening 917056483 Z11.3 Removal of intrauterine device 29027187 Z30.432 We discussed possible cramping and bleeding over the next few days. Patient informed that return to fertility is immediate. Patient encouraged to take PNV daily. Amenorrhea 73973991 N91. 2 Microscopic hematuria 19 6544163 R31.29 Dyspareunia 77231129 N94 .10 [id number] Minerva Robledo , [facility] [address] [address] 01/25/2023 14:59:39 01/25/2023 17:33:49 Gynecologic examination 19298083 Z01.419 Take Calcium with Vitamin D 1200mg daily if not receiving in daily diet. It is strongly advised to have an annual flu shot and up can obtain at most pharmacies . If you have not had a TDap shot in the last 10 years you should obtain one as well. Discussed with patient & provided with informatio n regarding Gardisil vaccine to prevent the 4 strains for HPV that cause cervical cancer if under age 26. Encourage safe sexual practices, to use condoms and limit partners if not already in a monogamous relationsh ip. Do monthly self breast exams. Have mammogram yearly or every other year depending on family history. BRCA testing is now available for patients with strong genetic history of female cancer. If interested contact the office. Engage in daily exercise of low impact aerobic exercise 45-60 minutes 4-5 times weekly. Avoid tobacco and illicit drugs as well as using moderation with alcohol intake less than 1-2 8 oz beverages daily. This lifestyle behavior pattern will lead to less health conditions and longer life span. If BMI greater than 25 weight watchers or dietary consult advised. Patient received above instructio ns, and questions have been answered. If you have any questions please call or respond to this email. Patient was made aware of the patient portal and may obtain a paper copy of today's plan if desired. Pap/hpv sentSTD Screen declinedGe netic Screen discussedC olon Screen naDexa Screen naRoutine Labs PCP has updatedmam mo na Abnormal u terine bleeding [id number] 9100 N93.9 Will schedule for US & update her on results.Ca n discuss options once these are returned. Recent labs from PCP wnl BTB between periods over the last 3mos months. [id number] EULALIO Dailey [place] [address] [address] 09/26/2023 15:39:05 09/26/2023 16:26:45 Vaginitis 15235118 N76.0 suspect yeast on examrx sent, r/b/a reviewedST I testing declinedvu lvar care guidelines discussed (advised against douching)R TC if symptoms persist past tx, otherwise WWE due 01/2024 Time spent in visit is a total of 20 mins with at least 50% of visit consisting of counseling and review of plan of care. Health Concerns Section Related Observation LastModified by Organization Detai ls LastModified Time None Recorded Concern Status LastModified by Organization Details LastModified Time None Recorded Advance Directives Directive None Recorded Payers Encounter Date Sequence Insurance Name Policy Number Policy Simms Covered Member ID Simms Member ID Guarantor Name 10/21/2020 1 [place] Margarette Vallejo [id number] Margarette Vallejo 10/21/2020 2 [place] [facility] Margarette Vallejo [id number] Margarette Vallejo 05/14/2022 2 [place] [employer] [place] [employer] Margarette Vallejo [id number] Margarette Vallejo 05/14/2022 1 [facility] (MEDICARE REPLACEMENT/ ADVANTAGE - HMO) [id number] Margarette Vallejo [id number] Margarette Vallejo 05/17/2022 2 [place] [employer] [facility] [place] [employer] Margarette Vallejo [id number] Margarette Vallejo 05/17/2022 1 [facility] (MEDICARE REPLACEMENT/ ADVANTAGE - HMO) [id number] Margarette Vallejo [id number] Margarette Vallejo 01/25/2023 2 [place] [facility] Margarette Vallejo [id number] Margarette Vallejo 01/25/2023 1 [facility] (MEDICARE REPLACEMENT/ ADVANTAGE - HMO) [id number] Margarette Vallejo [id number] Margarette Vallejo 09/26/2023 2 [place] [facility] Margarette Vallejo [id number] Margarette Valleoj 09/26/2023 1 [place] Margarette Vallejo [id number] Margarette Vallejo Notes Date Note Type Note Provider Name and Address Organization Details Recorded Time 10/21/2020 text/html Patient is here today for 4wk IUD string check. She reports she is doing well after placement of this device. She is eating/drinking/slee ping well. She has no adverse side effects from use of this device. She wishes to continue this therapy. EULALIO Stevens- [address], [place], [address], [facility] 10/21/2020 10:46:55 05/17/2022 text/html Annual GYNReport ed bypatient.Menstrual cycle:Normal menses Urinary symptoms:No hematuria; No incontinence Vulva:No genital lesion Vagina:Normal vaginal discharge Breast:No breast pain; No breast lump; No nipple discharge Current Contraception:Intrau terine device (iud) Sexual complaints:No sexual complaints; No pain during intercourse; Normal libido Menopausal Symptoms:No menopausal symptoms; Normal vaginal lubrication Psychological symptoms:No depression; No anxiety; No PMDD Preventive measures:Encourage self breast examination; Encourage regular exercise; Encourage no tobacco use; Encourage regular mammograms starting age 40 EULALIO Dailey [address], [place], [address], [facility] 05/17/2022 12:28:06 01/25/2023 text/html Annual GYNReport ed bypatient.Menstrual cycle:Bleeding between periods Urinary symptoms:No hematuria; No incontinence Vulva:No genital lesion Vagina:Normal vaginal discharge Breast:No breast pain; No breast lump; No nipple discharge Current Contraception:Satisf ied with current contraception; Partner had vasectomy Sexual complaints:No sexual complaints; No pain during intercourse; Normal libido Menopausal Symptoms:No menopausal symptoms; Normal vaginal lubrication Psychological symptoms:No depression; No anxiety; No PMDD Preventive measures:Encourage self breast examination; Encourage regular exercise; Encourage no tobacco use; Encourage regular mammograms starting age 40; Followed with yearly pap smears EULALIO Stevens- [address], [place], [address], [facility] 01/25/2023 17:13:27 09/26/2023 text/html 37yopresents for evaluation of vulvar itching/irritation/d ischargepresent x 3 days, clumpy white dischargefeels similar to previous yeast infectionsSA with steady male partner, vasectomy for BCdouched a week ago with a scented productneg n/v/fneg pelvic painneg flu-like symptoms EULALIO Dailey [address], [place], [address], [facility] 09/26/2023 16:13:27 OBGyn Episode Ob Episode Information Episode Created Date Number of Fetuses Patient Bloodtype Patient rh Status Prepregnancy Weight lbs Domestic Partner Domestic Partner Phone Father Name Knitter Helper Status 12/26/19 20 1 A Positive CLOSED Fetus Data First Name Last Name Admitted to NICU Weight (g) Sex Living Outcome Pediatric Complications Fetus ID Race Codes Race Delivery Type 3912.23 1 M true Full Term 156 Vaginal Delivery Enrique Calculation Initial Enrique Date Initial Exam Date Initial Exam Provider Initial Ultrasound Date Last Menstrual Period Date Ultra Sound Weeks Gestation 03/10/2020 12/26/2019 07/17/2019 05/22/2019 6 Eighteen To Twenty Week Enrique Update Ultra Sound Date Fundal Height At Umbil Quickening Date Ultra Sound Latest Weeks Gestation Final Enrique Confirmed By Final Enrique Confirmed Date Final Enrique Date Ultra Sound Latest Days Gestation 0 [email or web address] 02/13/2020 03/10/20 20 0 Pre-juliane Flowsheet Flowsheet Date 12/26/2019 Leach Score Blood Edema Fundus Height Fundus Units Glucose Ketones Leukocytes Nitrite Labor Signs Protein Cervic Dilation Cervic Effacement Cervic Station Type Weight in lbs Pre/Post Dialysis Refused BP Diastolic BP Location Tested BP Systolic BP Type Fetus Heart Rate Present Fetus Movement Comments Flowsheet Date 12/26/2019 Leach Score Blood Edema Fundus Height Fundus Units Glucose Ketones Leukocytes Nitrite Labor Signs Protein Cervic Dilation Cervic Effacement Cervic Station none trace Type Weight in lbs Pre/Post Dialysis Refused Weight 241.30588237463 BP Diastolic BP Location Tested BP Systolic BP Type 71 107 Fetus Heart Rate Present Fetus Movement Comments Flowsheet Date 01/07/2020 Leach Score Blood Edema Fundus Height Fundus Units Glucose Ketones Leukocytes Nitrite Labor Signs Protein Cervic Dilation Cervic Effacement Cervic Station 33 Type Weight in lbs Pre/Post Dialysis Refused Weight 246.444580735542 BP Diastolic BP Location Tested BP Systolic BP Type 65 100 Fetus Heart Rate Present A 248 Fetus Movement A Yes Comments Pt is measuring 2 weeks ahea d. However she was measuring ahead at last visit. She did have a growth u/s which was normal (per patient). I am not able to see the report at this time so I have requested it. Flowsheet Date 08/27/2019 Leach Score Blood Edema Fundus Height Fundus Units Glucose Ketones Leukocytes Nitrite Labor Signs Protein Cervic Dilation Cervic Effacement Cervic Station 12 trace Type Weight in lbs Pre/Post Dialysis Refused Weight 209.383388951556 BP Diastolic BP Location Tested BP Systolic BP Type 76 127 sitting Fetus Heart Rate Present A 165 Fetus Movement A No Comments This patient is a 33-year-ol d female presents for initial visit. She is a 5 para 2021 at 12 weeks gestation. She had a normal genetic screening ultrasound. She reports symptoms of depression. We have agreed to restart her Prozac. She has some chest wall musculoskeletal pain. Flowsheet Date 09/24/2019 Leach Score Blood Edema Fundus Height Fundus Units Glucose Ketones Leukocytes Nitrite Labor Signs Protein Cervic Dilation Cervic Effacement Cervic Station trace Type Weight in lbs Pre/Post Dialysis Refused Weight 220.725793381629 BP Diastolic BP Location Tested BP Systolic BP Type 67 105 sitting Fetus Heart Rate Present A 146 Fetus Movement A No Comments Pt was seen in ER for upper abdominal discomfort. Pt feels like upper abdomen is very tight and bloated. The area of discomfort is well above umbilicus. Discussed possible causes and dietary changes that may be beneficial.. Pt will try pepcid to see if there is any relief. Pt a little upset because she would like to have a gender u/s today but it is not covered by insurance. She will wait for baseline anatomy u/s. Flowsheet Date 10/15/2019 Leach Score Blood Edema Fundus Height Fundus Units Glucose Ketones Leukocytes Nitrite Labor Signs Protein Cervic Dilation Cervic Effacement Cervic Station none trace Type Weight in lbs Pre/Post Dialysis Refused Weight 226.478514780141 BP Diastolic BP Location Tested BP Systolic BP Type 65 118 sitting Fetus Heart Rate Present A 148 Fetus Movement A Yes Comments Pt is having a boy!Bilateral leg cramps. No redness, warmth, or tenderness. Negative homans. Instructed to increase potassium intake. Flowsheet Date 11/12/2019 Leach Score Blood Edema Fundus Height Fundus Units Glucose Ketones Leukocytes Nitrite Labor Signs Protein Cervic Dilation Cervic Effacement Cervic Station none 24 neg Type Weight in lbs Pre/Post Dialysis Refused Weight 234.472849787850 BP Diastolic BP Location Tested BP Systolic BP Type 67 104 sitting Fetus Heart Rate Present A 140 Fetus Movement Comments No complaints. Plans to carleen le feed and does want circumcision Flowsheet Date 12/12/2019 Leach Score Blood Edema Fundus Height Fundus Units Glucose Ketones Leukocytes Nitrite Labor Signs Protein Cervic Dilation Cervic Effacement Cervic Station trace 32 trace Type Weight in lbs Pre/Post Dialysis Refused Weight 239.104146335949 BP Diastolic BP Location Tested BP Systolic BP Type 66 100 sitting Fetus Heart Rate Present A 145 Fetus Movement A Yes Comments pt states that having sharp pain in abdominal area, discharge and swelling, taking clonazepam for anxiety prn, does not want to increase prozac at this time epds 9 Flowsheet Date 01/21/2020 Leach Score Blood Edema Fundus Height Fundus Units Glucose Ketones Leukocytes Nitrite Labor Signs Protein Cervic Dilation Cervic Effacement Cervic Station 35 trace Type Weight in lbs Pre/Post Dialysis Refused Weight 252.957143747163 BP Diastolic BP Location Tested BP Systolic BP Type 64 106 Fetus Heart Rate Present A 135 Fetus Movement A Yes Comments Pt c/o heartburn. Will try p epcid. Still measuring ahead. Growth u/s to be scheduled. Flowsheet Date 01/21/2020 Leach Score Blood Edema Fundus Height Fundus Units Glucose Ketones Leukocytes Nitrite Labor Signs Protein Cervic Dilation Cervic Effacement Cervic Station Type Weight in lbs Pre/Post Dialysis Refused BP Diastolic BP Location Tested BP Systolic BP Type Fetus Heart Rate Present Fetus Movement Comments Flowsheet Date 02/04/2020 Leach Score Blood Edema Fundus Height Fundus Units Glucose Ketones Leukocytes Nitrite Labor Signs Protein Cervic Dilation Cervic Effacement Cervic Station trace 37 neg Type Weight in lbs Pre/Post Dialysis Refused Weight 254.855598315457 BP Diastolic BP Location Tested BP Systolic BP Type 69 101 sitting Fetus Heart Rate Present A 131 Fetus Movement A Yes Comments I would like to do a 2 hour gtt d/t LGA. Pt will come in this week. Instructed to fast after midnight. Flowsheet Date 02/13/2020 Leach Score Blood Edema Fundus Height Fundus Units Glucose Ketones Leukocytes Nitrite Labor Signs Protein Cervic Dilation Cervic Effacement Cervic Station trace 37 1cm 0% -3 Type Weight in lbs Pre/Post Dialysis Refused Weight 255.661345090317 BP Diastolic BP Location Tested BP Systolic BP Type 70 103 sitting Fetus Heart Rate Present A 144 Fetus Movement A Yes Comments Pt completed 2 hour gtt. FBS 1 point above cutoff. Pt states she was told she could eat that morning by the person who scheduled her 2 hour. Will send out glucometer and check fbs and 1 hour pp until Tuesday. Will evaluate at office visit. Flowsheet Date 02/18/2020 Leach Score Blood Edema Fundus Height Fundus Units Glucose Ketones Leukocytes Nitrite Labor Signs Protein Cervic Dilation Cervic Effacement Cervic Station 39 trace 1cm 0% -3 Type Weight in lbs Pre/Post Dialysis Refused Weight 259.457675565246 BP Diastolic BP Location Tested BP Systolic BP Type 71 R arm 109 sitting Fetus Heart Rate Present A 138 Fetus Movement A Yes Comments Pt was not able to get gluco meter until 02/15. She has had a error message multiple times and the readings she does have are slightly elevated. FBS 111 and 100. 1 hour pp 130,142,102,146. She showed me a pic on her phone of the glucometer error message and it appears she might be putting the test strip in backwards. I would like for her to return on to go over glucometer use, diet teaching, review bs log again, and growth u/s. Pt agrees. Will do nst today for likely GDM. Flowsheet Date 02/18/2020 Leach Score Blood Edema Fundus Height Fundus Units Glucose Ketones Leukocytes Nitrite Labor Signs Protein Cervic Dilation Cervic Effacement Cervic Station Type Weight in lbs Pre/Post Dialysis Refused BP Diastolic BP Location Tested BP Systolic BP Type Fetus Heart Rate Present Fetus Movement Comments Flowsheet Date 02/21/2020 Leach Score Blood Edema Fundus Height Fundus Units Glucose Ketones Leukocytes Nitrite Labor Signs Protein Cervic Dilation Cervic Effacement Cervic Station trace Type Weight in lbs Pre/Post Dialysis Refused Weight 257.881319501641 BP Diastolic BP Location Tested BP Systolic BP Type 67 L arm 104 sitting Fetus Heart Rate Present Fetus Movement Comments Flowsheet Date 02/21/2020 Leach Score Blood Edema Fundus Height Fundus Units Glucose Ketones Leukocytes Nitrite Labor Signs Protein Cervic Dilation Cervic Effacement Cervic Station Type Weight in lbs Pre/Post Dialysis Refused BP Diastolic BP Location Tested BP Systolic BP Type Fetus Heart Rate Present Fetus Movement Comments Flowsheet Date 02/21/2020 Leach Score Blood Edema Fundus Height Fundus Units Glucose Ketones Leukocytes Nitrite Labor Signs Protein Cervic Dilation Cervic Effacement Cervic Station Type Weight in lbs Pre/Post Dialysis Refused BP Diastolic BP Location Tested BP Systolic BP Type Fetus Heart Rate Present Fetus Movement Comments Flowsheet Date 02/25/2020 Leach Score Blood Edema Fundus Height Fundus Units Glucose Ketones Leukocytes Nitrite Labor Signs Protein Cervic Dilation Cervic Effacement Cervic Station Type Weight in lbs Pre/Post Dialysis Refused BP Diastolic BP Location Tested BP Systolic BP Type Fetus Heart Rate Present Fetus Movement Comments Flowsheet Date 02/25/2020 Leach Score Blood Edema Fundus Height Fundus Units Glucose Ketones Leukocytes Nitrite Labor Signs Protein Cervic Dilation Cervic Effacement Cervic Station trace Type Weight in lbs Pre/Post Dialysis Refused Weight 261.13525157761 BP Diastolic BP Location Tested BP Systolic BP Type 64 117 sitting Fetus Heart Rate Present Fetus Movement Comments Flowsheet Date 02/25/2020 Leach Score Blood Edema Fundus Height Fundus Units Glucose Ketones Leukocytes Nitrite Labor Signs Protein Cervic Dilation Cervic Effacement Cervic Station Type Weight in lbs Pre/Post Dialysis Refused BP Diastolic BP Location Tested BP Systolic BP Type Fetus Heart Rate Present Fetus Movement Comments Flowsheet Date 02/28/2020 Leach Score Blood Edema Fundus Height Fundus Units Glucose Ketones Leukocytes Nitrite Labor Signs Protein Cervic Dilation Cervic Effacement Cervic Station Type Weight in lbs Pre/Post Dialysis Refused BP Diastolic BP Location Tested BP Systolic BP Type Fetus Heart Rate Present Fetus Movement Comments Flowsheet Date 03/13/2020 Leach Score Blood Edema Fundus Height Fundus Units Glucose Ketones Leukocytes Nitrite Labor Signs Protein Cervic Dilation Cervic Effacement Cervic Station Type Weight in lbs Pre/Post Dialysis Refused Weight 230.995873811026 BP Diastolic BP Location Tested BP Systolic BP Type 74 L arm 105 sitting Fetus Heart Rate Present Fetus Movement Comments Flowsheet Date 04/07/2020 Leach Score Blood Edema Fundus Height Fundus Units Glucose Ketones Leukocytes Nitrite Labor Signs Protein Cervic Dilation Cervic Effacement Cervic Station Type Weight in lbs Pre/Post Dialysis Refused Weight 225.171761765880 BP Diastolic BP Location Tested BP Systolic BP Type 74 L arm 104 sitting Fetus Heart Rate Present Fetus Movement Comments Menstrual History Last Menstrual Date Menses Monthly On Bcp Conception Prior Menses Frequency Hcg Plus Date Menarche Onset Age 0905/22/2019 Genetic Screening And Infection History Question Response Note Mental Retardation/Autism false Patient's Age Will Be 35 Years Or Older At Estim ated Date of Delivery false Thalassemia (Kittitian, Andorran, Mediterranean, Or Background): MCV < 80 false Neural Tube Defect (Meningomyelocele, Spina Bifi da, Or Anencephaly) false Congenital Heart Defect false Down Syndrome false Emir-Sachs (eg, Methodist, Cajun, Bengali-Romanian) f alse Edmundo Disease false Sickle Cell Disease Or Trait () false Hemophilia Or Other Blood Disorders false Muscular Dystrophy false Cystic Fibrosis false Mayes's Chorea false Intellectual Disability/Autism false If Yes, Was Person Tested For Fragile X? false Other Inherited Genetic Or Chromosomal Disorder false Maternal Metabolic Disorder (eg, Type 1 Diabetes , PKU) false Patient Or Baby's Father Had A Child With Defects Not Listed Above false Recurrent Loss, Or A Stillbirth false Medications (including Suppl ements, Vitamins, Herbs, OTC Drugs), Illicit/Recreational Drugs, Alcohol false If Yes, Agent(s) And Strength/Dosage false Any Other Genetic History false Live With Someone With TB Or Exposed To TB false Patient Or Partner Has History Of Genital Herpes false Rash Or Viral Illness Since Last Menstrual Perio d false History Of STD, Gonorrhea, Chlamydia, HPV, Syphi lis false Other Infection History false History of HIV false History of Hepatitis false Prior GBS-infected child false Hemoglobinopathy Or Carrier false Other Structural Defect false Recent Travel History Outside of Country false Delivery Information Delivery Date Delivery Type Labor Anesthesia Weeks Gestation Incision Type Labor Labor Length Hrs Delivered By Post Complications Tubal Sterilization Discharge Date Comments 0 Induce d Regional-Ep idural 39 false kpanyik GDM/GBS+ Discharge Information Feeding Method Contraceptive Method Maternal HG B and HCT Levels Ob Episode Information Episode Created Date Number of Fetuses Patient Bloodtype Patient rh Status Prepregnancy Weight lbs Domestic Partner Domestic Partner Phone Father Name Knitter Helper Status 12/26/19 20 1 CLOSED Fetus Data First Name Last Name Admitted to NICU Weight (g) Sex Living Outcome Pediatric Complications Fetus ID Race Codes Race Delivery Type 3543.46 0704 F Full Term 153 Vaginal Delivery Enrique Calculation Initial Enrique Date Initial Exam Date Initial Exam Provider Initial Ultrasound Date Last Menstrual Period Date Ultra Sound Weeks Gestation 0 Eighteen To Twenty Week Enrique Update Ultra Sound Date Fundal Height At Umbil Quickening Date Ultra Sound Latest Weeks Gestation Final Enrique Confirmed By Final Enrique Confirmed Date Final Enrique Date Ultra Sound Latest Days Gestation 0 0 Menstrual History Last Menstrual Date Menses Monthly On Bcp Conception Prior Menses Frequency Hcg Plus Date Menarche Onset Age Delivery Information Delivery Date Delivery Type Labor Anesthesia Weeks Gestation Incision Type Labor Labor Length Hrs Delivered By Post Complications Tubal Sterilization Discharge Date Comments 7 Discharge Information Feeding Method Contraceptive Method Maternal HG B and HCT Levels Ob Episode Information Episode Created Date Number of Fetuses Patient Bloodtype Patient rh Status Prepregnancy Weight lbs Domestic Partner Domestic Partner Phone Father Name Knitter Helper Status 12/26/19 20 1 CLOSED Fetus Data First Name Last Name Admitted to NICU Weight (g) Sex Living Outcome Pediatric Complications Fetus ID Race Codes Race Delivery Type , Spontane ous 152 Enrique Calculation Initial Enrique Date Initial Exam Date Initial Exam Provider Initial Ultrasound Date Last Menstrual Period Date Ultra Sound Weeks Gestation 0 Eighteen To Twenty Week Enrique Update Ultra Sound Date Fundal Height At Umbil Quickening Date Ultra Sound Latest Weeks Gestation Final Enrique Confirmed By Final Enrique Confirmed Date Final Enrique Date Ultra Sound Latest Days Gestation 0 0 Menstrual History Last Menstrual Date Menses Monthly On Bcp Conception Prior Menses Frequency Hcg Plus Date Menarche Onset Age Delivery Information Delivery Date Delivery Type Labor Anesthesia Weeks Gestation Incision Type Labor Labor Length Hrs Delivered By Post Complications Tubal Sterilization Discharge Date Comments 5 Discharge Information Feeding Method Contraceptive Method Maternal HG B and HCT Levels Ob Episode Information Episode Created Date Number of Fetuses Patient Bloodtype Patient rh Status Prepregnancy Weight lbs Domestic Partner Domestic Partner Phone Father Name Knitter Helper Status 03/17/20 20 1 DELETED Enrique Calculation Initial Enrique Date Initial Exam Date Initial Exam Provider Initial Ultrasound Date Last Menstrual Period Date Ultra Sound Weeks Gestation 0 Eighteen To Twenty Week Enrique Update Ultra Sound Date Fundal Height At Umbil Quickening Date Ultra Sound Latest Weeks Gestation Final Enrique Confirmed By Final Enrique Confirmed Date Final Enrique Date Ultra Sound Latest Days Gestation 0 0 Menstrual History Last Menstrual Date Menses Monthly On Bcp Conception Prior Menses Frequency Hcg Plus Date Menarche Onset Age Delivery Information Delivery Date Delivery Type Labor Anesthesia Weeks Gestation Incision Type Labor Labor Length Hrs Delivered By Post Complications Tubal Sterilization Discharge Date Comments 0 39 Royce Discharge Information Feeding Method Contraceptive Method Maternal HG B and HCT Levels Ob Episode Information Episode Created Date Number of Fetuses Patient Bloodtype Patient rh Status Prepregnancy Weight lbs Domestic Partner Domestic Partner Phone Father Name Knitter Helper Status 12/26/19 20 1 CLOSED Fetus Data First Name Last Name Admitted to NICU Weight (g) Sex Living Outcome Pediatric Complications Fetus ID Race Codes Race Delivery Type , Spontane ous 155 Enrique Calculation Initial Enrique Date Initial Exam Date Initial Exam Provider Initial Ultrasound Date Last Menstrual Period Date Ultra Sound Weeks Gestation 0 Eighteen To Twenty Week Enrique Update Ultra Sound Date Fundal Height At Umbil Quickening Date Ultra Sound Latest Weeks Gestation Final Enrique Confirmed By Final Enrique Confirmed Date Final Enrique Date Ultra Sound Latest Days Gestation 0 0 Menstrual History Last Menstrual Date Menses Monthly On Bcp Conception Prior Menses Frequency Hcg Plus Date Menarche Onset Age Delivery Information Delivery Date Delivery Type Labor Anesthesia Weeks Gestation Incision Type Labor Labor Length Hrs Delivered By Post Complications Tubal Sterilization Discharge Date Comments 9 Discharge Information Feeding Method Contraceptive Method Maternal HG B and HCT Levels Ob Episode Information Episode Created Date Number of Fetuses Patient Bloodtype Patient rh Status Prepregnancy Weight lbs Domestic Partner Domestic Partner Phone Father Name Knitter Helper Status 12/26/19 20 1 CLOSED Fetus Data First Name Last Name Admitted to NICU Weight (g) Sex Living Outcome Pediatric Complications Fetus ID Race Codes Race Delivery Type 3940.35 3704 M Full Term 154 Vaginal Delivery Enrique Calculation Initial Enrique Date Initial Exam Date Initial Exam Provider Initial Ultrasound Date Last Menstrual Period Date Ultra Sound Weeks Gestation 0 Eighteen To Twenty Week Enrique Update Ultra Sound Date Fundal Height At Umbil Quickening Date Ultra Sound Latest Weeks Gestation Final Enrique Confirmed By Final Enrique Confirmed Date Final Enrique Date Ultra Sound Latest Days Gestation 0 0 Menstrual History Last Menstrual Date Menses Monthly On Bcp Conception Prior Menses Frequency Hcg Plus Date Menarche Onset Age Delivery Information Delivery Date Delivery Type Labor Anesthesia Weeks Gestation Incision Type Labor Labor Length Hrs Delivered By Post Complications Tubal Sterilization Discharge Date Comments 0 39 Discharge Information Feeding Method Contraceptive Method Maternal HG B and HCT Levels
--- OUTSIDE RECORDS SUMMARY | 2024-12-25 09:53 | XMS_ITS ---
Author Organization [facility] Address [address] [place] [address] Care Team Providers Care Automotive Tire Tester Name Role Phone Selina Anaya Primary Care Provider Cherie Piña Unavailable [phone] Allergies Allergen (clinical drug ingredient) Drug/Non Drug [...] for 30 days Active Vitamin D (Ergocalciferol) 98705DGY TAKE 1 CAPSULE BY MOUTH ONCE A [...] Zolpidem Tartrate 10MG 1 tablet at bedti vt as needed Orally Once a day for 30 days 10/12/2024 Active Social History Sex Assigned At : Social History Observation Description Sex Assigned At Female Vital Signs Weight 189 lbs 2024 Height 67 in 2024 BMI 29.6 kg/m2 2024 Encounters Encounter Location Date Provider Diagnosis [facility] [address] [place] [address] 2024 Selina Anaya Anxiety disorder F41.9 ; [...] May also contact the 24-hour crisis hotline ([facility]), refer to the closest emergency room [...] May also contact the 24-hour crisis hotline ([facility]), refer to the closest emergency room [...] Up: 3 Months, Reason: Psych F/U in-office Provider Name:Selina ureña, 12/31/2024 08:40:00 AM, [address] [facility] [address], [place], [address], Progress Notes * Jackie NELSONNimishaB: 986 (39 yo F)Acc No.[id number] Patient: Margarette SAMUELS Provider: Candace Anaya, MSN, EDUCATIONAL AIDE, SPORTS BOOK BOARD ATTENDANT-C :1985 A ge:39 Y S ex:Female Date:2024 Address:[facility] [address], [facility] Subjective: * Chief Complaints: * 3 Month Psych F/U & Med Refill * HPI: D epression Screening: PHQ-9 L ittle interest or pleasure in doing things S everal days, F eeling down, depressed, or hopeless S everal days, T rouble falling or staying asleep, or sleeping too much N ot at all, F eeling tired or having little energy S everal days, P oor appetite or overeating S everal days, F eeling bad about yourself or that you are a failure, or have let yourself or your family down N ot at all, T rouble concentrating on things, such as reading the newspaper or watching television N ot at all, M oving or speaking so slowly that other people could have noticed; or the opposite, being so fidgety or restless that you have been moving around a lot more than usual N ot at all, T houghts that you would be better off or of hurting yourself in some way N ot at all, T otal Score 4 , I nterpretation M inimal Depression. S creening: [place] Suicide Severity Rating Scale (LF) D o you want to initiate with S creener form, 1 . Wish to be : Have you wished you were or wished you could go to sleep and not wake up? N o, 2 . Suicidal Thoughts: Have you actually had any thoughts of killing yourself? N o, 6 . Suicide Behaviour: Have you ever done anything,started to do anything, or prepared to end your life? N o, I nterpretation: L ow Risk. C SSRS Interpretation and Follow Up Plan: CSSRS Interpretation and Follow Up Plan C SSRS Screen documented using SF Y es, R isk Disposition from SF L ow - No Follow Up Plan Required, F ollow Up Plan N o Follow Up Plan required at this time.. P sychiatric Assessment - Current Symptoms: How ct. doing today? Client is a 39 yo F and today [birth year] her birthday. States she has lost 40 pounds so far and continues working on her appetite s/p surgery. This has been over the past 3 months. Reports that she has on [employer]-jeans today which has made her happy.? Goals: [...] I am okay with them. Denies SI/HI. * ROS: P sych ROS: Constitutional D enies. E yes D enies. E ars/Nose/Mouth/Throat D enies. R espiratory D enies. A llergic/Immunologic D enies.?Cardiovascular D enies. G I D enies. G U D enies. M usculoskeletal D enies. N eurological D enies. I ntegumentary D enies. E ndocrine D enies.?Hematological/Lymphatic D enies. P sychiatric: Denies SI/HI. * Medical History: * Surgical History: * Hospitalization/Major Diagno stic Procedure: * Family History: F ather: . M other: alive. 1 brother(s) , 1 sister(s) - healthy. 2 son(s) , 1 daughter(s) - healthy. . mother- HTN, depression, anxiety father age 64 lung cancer self- depression, anxiety sister- depression, anxiety. * Social History: P rimary Social History: L iving Arrangement L iving Arrangement: I ndependent Living herself and her 3 kids in a house, I s this a supportive environment? Y es. A lcohol Use A lcohol Use Frequency: M onthly or less. I llicit Substance Usage I llicit Substance Usage: Y es, S ubstance Used: C annabis, F requency Cannabis is used: Monthly or less. 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 T obacco Use - do not use T obacco Use: N ever . * Medications: T akingCyanocobalamin 1000 MCG/ML Liquid as directed Injection Weekly Levothyroxine Sodium 50 MCG Tablet 1 tablet in the morning on an empty stomach Orally Once a day Vitamin D (Ergocalciferol) 07510LQC Capsule TAKE 1 CAPSULE BY MOUTH ONCE [...] Once a day Taking Vitamin D (Ergocalciferol) 25929YFI Capsule TAKE 1 CAPSULE BY MOUTH ONCE [...] reviewed and reconciled with the patient * Allergies: P ENICILLIN: itchingno[Allergies Verified] Objective: * Vitals: W t:189, Ht: 67, BMI:29.6. * Examination: M ental Status Exam: SENSORIUM AND COGNITION Alert, Oriented to Person, Oriented to Place, Oriented to Time, Oriented to Situation. ATTENTION AND CONCENTRATION No deficits. ATTITUDE AND BEHAVIOR Cooperative, Receptive. MEMORY Immediate, Recent, Remote. MOOD Euthymic. SPEECH QUANTITY Appropriate. SPEECH QUALITY Appropriate volume. THOUGHT PROCESS Coherent and goal directed. THOUGHT CONTENT Appropriate - WNL. MOTOR ACTIVITY D enies abnormal movements or tics , Phone interview.. SUICIDAL IDEATION Denies suicidal ideation. HOMICIDAL IDEATION Denies homicidal ideation. HALLUCINATIONS Denies hallucinations. INSIGHT F air. JUDGMENT F air. FUND OF KNOWLEDGE G ood. ABILITY TO PARTICIPATE IN TREATMENT M oderate. WILLINGNESS TO PARTICIPATE IN TREATMENT M oderate. E xam limited due to telephone encounter. Assessment: * Assessment: 1. A nxiety disorder - F41.9 (Primary) 2 . M ajor depression, chronic - F32.9 3 . A dult ADHD - F90.9 4 . O besity - E66.9 ?5. M edication monitoring encounter - Z51.81 Plan: * Treatment: 2. M ajor depression, chronic Refill PROzac Capsule, 20MG, 1 capsule, Orally, Once a day, 30 days, 30 Capsule, Refills 2; R efill Rexulti tablet, 2 mg, 1 tablet, oral, once daily, 30 days, 30, Refills 2. 3. A dult ADHD Refill Adderall Tablet, 20 MG, 1 tablet, Orally, Three times daily, 30 days, 90, Refills 0; R efill Adderall Tablet, 20 MG, 1 tablet, Orally, Three times daily, 30 days, 90, Refills 0; R efill Adderall Tablet, 20 MG, 1 tablet, Orally, Three times daily, 30 days, 90, Refills 0. 4. O besity Notes: Continue working with PCP. Encouraged healthy diet and exercise. 5. O thers Notes: Reasons, potential benefits, potential risks, interactions [...] assess appearance, affect, AIMS, or vital signs. * Procedure Codes: * Follow Up: 3 Months (Reason: Psych F/U in-office) * * WELL SERVICES DISPATCHER Sign off status: Completed true * Provider: Candace Anaya, MSN, EDUCATIONAL AIDE, SPORTS BOOK BOARD ATTENDANT-C Date: 0 2024 Generated for Kain gilbert/Jc/Marilee on: 0 12/25/2024 09:53 AM CDT History and Physical Notes * HPI (History [...] 3 months. Reports that she has on blue-jeans today which has made her happy. Goals: [...] am okay with them. Denies SI/HI. Screening [place] Suicide Severity Rating Scale (LF) Do you want to initiate with: Screener form 1. Wish to be : Have you wished you were or wished you could go to sleep and not wake up?: No 2. Suicidal Thoughts: Have you actually had any thoughts of killing yourself?: No 6. Suicide Behavior Question: Have you ever done anything,started to do anything, or prepared to end your life?: No Interpretation:: Low Risk CSSRS Interpretation and Follow Up [...] CONCENTRATION No deficits ATTITUDE AND BEHAVIOR Cooperative, State'S Attorney tive MEMORY Immediate, Recent, R emote MOOD [...]
--- OUTSIDE RECORDS SUMMARY | 2024-12-25 09:53 | XMS_ITS ---
Author Organization [facility] Address [address] [place] [address] Care Team Providers Care Project Intern Name Role Phone Selina Anaya Primary Care Provider Cherie Piña Unavailable [phone] Allergies Allergen (clinical drug ingredient) Drug/Non Drug [...] for 30 days Active Vitamin D (Ergocalciferol) 74120CNY TAKE 1 CAPSULE BY MOUTH ONCE A [...] Female Encounters Encounter Location Date Provider Diagnosis [facility] [address] [place] [address] 06/07/2024 Selina Anaya Anxiety disorder F41.9 ; [...] May also contact the 24-hour crisis hotline ([facility]), refer to the closest emergency room or [...] Weeks, Reason: F/U for Psych s/p Surgery Provider Name:Selina ureña, 12/31/2024 08:40:00 AM, [address] [facility] , [place], [address], Progress Notes * Jackie NELSONaDOB: [birth year] (38 yo F)Acc No.[id number]:06/07/2024 Patient: Margarette SAMUELS Provider: Candace Anaya, MSN, MACHINE ADJUSTER, BORING INSPECTOR-C :1985 A ge:38 Y S ex:Female Date:06/07/2024 Address:[facility][note 3] [facility] Subjective: * Chief Complaints: * 3 month f/u * HPI: D epression Screening: PHQ-9 L [...] I nterpretation M inimal Depression. S creening: [place] Suicide Severity Rating Scale (LF) D o [...] Up Plan: CSSRS Interpretation and Follow Up Plan. CSSRS Interpretation and Follow Up Plan C SSRS Screen documented using SF Y es, M oderate or High risk requires selection of a follow up plan C SSRS No/Low: intervention not needed at this time. P sychiatric Assessment - Current Symptoms: How ct. doing today? Client is a 38 yo F on the phone today reporting she is doing fair. Reports she is going to be getting the gastic sleeve done on June 28. States she is excited for this to begin. States she is doing well [id number]. Mentally preparing for the surgery, talking with the production tech, stocking up on protein shakes. Depression: 2-11/26 Anxiety: Normally through the roof since new things are happening and coming up, high, but manageable with the medicine. Anger/irritability: Denies Concentration: Good with medication Hallucinations/paranoia: Denies Drugs/ETOH: Denies Social: Staying busy, talking with people, cleaning houses. Denies SI/HI. 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 T obacco Use T obacco Use: N ever . * Medications: T akingRexulti 2 mg tablet 1 tablet oral once daily Trulicity Cyanocobalamin 1000 MCG/ML Liquid as directed Injection Weekly Levothyroxine Sodium 50 MCG Tablet 1 tablet in the morning on an empty stomach Orally Once a day Vitamin D (Ergocalciferol) 20082FIY Capsule TAKE 1 CAPSULE BY MOUTH ONCE [...] Once a day Taking Vitamin D (Ergocalciferol) 36160PGJ Capsule TAKE 1 CAPSULE BY MOUTH ONCE [...] P ENICILLIN: itchingno[Allergies Verified] Objective: * Vitals: weight is 229.7 lbs per client. * Examination: M ental Status Exam: SENSORIUM [...] a day, 30 days, 30 Capsule, Refills 0; R efill Rexulti tablet, 2 mg, 1 tablet, oral, once daily, 30 days, 30, Refills 0. 3. A dult ADHD Refill Adderall Tablet, 20 MG, 1 tablet, Orally, Three times daily, 30 days, 90, Refills 0. ? 4. O besity Notes: Continue working with [...] signs. * Procedure Codes: * Follow Up: 4 Weeks (Reason: F/U for Psych s/p Surgery) * * Sign off status: Completed true * Provider: Candace Anaya, MSN, MACHINE ADJUSTER, BORING INSPECTOR-C Date: 0 06/07/2024 Generated for Printi ng/Faxing/eTransmitting on: 0 12/25/2024 09:53 AM CDT History [...] to begin. States she is doing well [id number]. Mentally preparing for the surgery, talking with the production tech, stocking up on protein shakes. Depression: 2-11/26 Anxiety: Normally through the roof since new things are happening and coming up, high, but manageable with the medicine. Anger/irritability: Denies Concentration: Good with medication Hallucinations/paranoia: Denies Drugs/ETOH: Denies Social: Staying busy, talking with people, cleaning houses. Denies SI/HI. Screening [place] Suicide Severity Rating Scale (LF) Do you [...] end your life?: No Interpretation:: Low Risk Do Not Use CSSRS Interpretation [...] CONCENTRATION No deficits ATTITUDE AND BEHAVIOR Cooperative, Advertising Internship tive MEMORY Immediate, Recent, R emote MOOD [...]
--- OUTSIDE RECORDS SUMMARY | 2024-12-25 09:54 | XMS_ITS | Clinical Summary ---
Author Organization [facility] Address [address] [place] [address] Care Team Providers Care Personal Secretary Name Role Phone KenCorky donnellyelizabet PERKINS Primary Care Provider [phone] Allergies Active Allergy Reactions Criticality Noted Date [...] (20 mg total) by mouth daily. Active amphetamine-dex troamphetamine (ADDERALL) 20 MG tablet Take 1 tablet (20 mg total) by mouth 3 (three) times daily. Active doxycycline hyclate (VIBRAMYCIN) 50 MG capsule Take 1 capsule (50 mg total) by mouth 2 (two) times daily. 5 Active metroNIDAZOLE (METROCREAM) 0.75 % cream Apply topically 2 (two) times daily. 5 Active HYDROcodone-gordon taminophen (NORCO) 5-325 MG tabletIndicatio ns:Acute Pain < 7 Day Supply Take 1 tablet by mouth every 6 (six) hours as needed for Pain. Indications: Acute Pain < 7 Day Supply 20 tablet 5 Active lidocaine (LIDODERM) 5 %Indications:Sa croiliac pain Place 1 patch onto the skin daily for 30 days. Remove & Discard patch within 12 hours or as directed by 30 patch 5 12/22/19 25 Active Problems Problem Noted Date Diagnosed Date Major depressive disorder, single episode, unspe cified 05/13/2023 Hypothyroidism, unspecified 05/13/2023 Encounters Date Type Department Care Team Description 11/21/2024 4:15 PM SOCIAL MEDIA COMMUNITY MANAGER - 11/21/2024 6:15 PM SOCIAL MEDIA COMMUNITY MANAGER Emergency [facility] [place] [address] Domonique Wyatt MD Back Pain Discharge Disposition: Home or Self Care (Routine Discharge) 11/21/2024 Travel from Last 3 Months Social History Tobacco Use Types Packs/Day Years Used Date Smoking Tobacco: Never Smokeless Tobacco: Never Tobacco Cessation:Counseling Given: Not Answered Comments Unknown Sex and Gender Information Value Date Recorded Sex Assigned at Female 11/21/2024 4:25 PM SOCIAL MEDIA COMMUNITY MANAGER Legal Sex Female 5:34 PM CDT Gender Identity Not on file Sexual Orientation Not on file Last Filed Vital Signs Vital Sign Reading Time Taken Comments Blood Pressure 101/62 11/21/2024 5:05 PM SOCIAL MEDIA COMMUNITY MANAGER Pulse 97 11/21/2024 4:21 PM SOCIAL MEDIA COMMUNITY MANAGER Temperature 36.6 C (97.9 F) 11/21/2024 4:21 PM SOCIAL MEDIA COMMUNITY MANAGER Respiratory Rate 20 11/21/2024 4:21 PM SOCIAL MEDIA COMMUNITY MANAGER Oxygen Saturation 100% 11/21/2024 4:21 PM SOCIAL MEDIA COMMUNITY MANAGER Inhaled Oxygen Concentration - - Weight 79.4 kg (175 lb) 11/21/2024 4:21 PM SOCIAL MEDIA COMMUNITY MANAGER Height 170.2 cm (5' 7 ) 11/21/2024 4:21 PM SOCIAL MEDIA COMMUNITY MANAGER Body Mass Index 27.41 11/21/2024 4:21 PM SOCIAL MEDIA COMMUNITY MANAGER Plan of Treatment Health Maintenance Due Date Last Done Comments Annual Physical 1988 Hepatitis C 2003 Hepatitis B Vaccines (1 of 3 - 19+ 3-dose series) 2004 Cervical Cancer Screening Pa p with HPV Testing (Age 30 to 64) Every 5 Years 2015 COVID-19 Vaccine (2023-2 5 season) 2024 Cervical Cancer Screening Pa p Smear [...] age to complete this topic Insurance [place] [address] [facility] Care Teams Personal Secretary Relationship Specialty Start Date End Date Ame Thakur NP [address] [id number] PCP - General NURSE PRACTITIONER 05/13/23
--- OUTSIDE RECORDS SUMMARY | 2024-12-25 09:54 | XMS_ITS ---
Author Organization [facility] Address [address] [place] [address] Care Team Providers Care Cuff Slitter Name Role Phone Selina Anaya Primary Care Provider [phone] Cherie Piña Unavailable [phone] Allergies Allergen (clinical drug ingredient) Drug/Non Drug [...] 30 days 07/12/2024 Active Vitamin D (Ergocalciferol) 11560LJU TAKE 1 CAPSULE BY MOUTH ONCE A [...] Female Encounters Encounter Location Date Provider Diagnosis [facility] [facility] [place] [address] 07/05/2024 Selina Anaya Anxiety disorder F41.9 ; [...] May also contact the 24-hour crisis hotline ([facility]), refer to the closest emergency room or [...] May also contact the 24-hour crisis hotline ([facility]), refer to the closest emergency room or [...] ore if needed, Reason: In-office Psych F/U Provider Name:Selina ureña, 12/31/2024 08:40:00 AM, [address] [facility] [address], [place], [address], Progress Notes * Jackie NELSONNimishaB: [birth year] (38 yo F)Acc No.[id number]:07/05/2024 Patient: Margarette SAMUELS Provider: Candace Anaya, MSN, MANAGER OF COMMUNITY RELATIONS, STATION HELPER-C :1985 A ge:38 Y S ex:Female Date:07/05/2024 Address:[facility] [address], [facility] Subjective: * Chief Complaints: * 1 Month Psych F/U & Med Refill * [...] I nterpretation M inimal Depression. S creening: [place] Suicide Severity Rating Scale (LF) D o [...] goes back on Tuesday to see the . Mental health: so far, it is a [...] other medical changes. Reports doing well. 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 T obacco Use T obacco Use: N ever . * Medications: T akingRexulti 2 mg tablet 1 tablet oral once daily Trulicity Cyanocobalamin 1000 MCG/ML Liquid as directed Injection Weekly Levothyroxine Sodium 50 MCG Tablet 1 tablet in the morning on an empty stomach Orally Once a day Vitamin D (Ergocalciferol) 56846XTJ Capsule TAKE 1 CAPSULE BY MOUTH ONCE [...] Once a day Taking Vitamin D (Ergocalciferol) 81782QVZ Capsule TAKE 1 CAPSULE BY MOUTH ONCE [...] 1 tablet Orally Three times daily * Allergies: P ENICILLIN: itchingno[Allergies Verified] Objective: * Vitals: * Examination: M ental Status Exam: SENSORIUM [...] Procedure Codes: * Follow Up: 3 Months - or before if needed (Reason: In-office Psych F/U) * * Sign off status: Completed true * Provider: Candace Anaya, MSN, MANAGER OF COMMUNITY RELATIONS, STATION HELPER-C Date: Generated for Kain gilbert/Jc/Marilee on: 12/25/2024 09:53 AM CDT History and Physical [...] other medical changes. Reports doing well. Screening [place] Suicide Severity Rating Scale (LF) Do you [...] CONCENTRATION No deficits ATTITUDE AND BEHAVIOR Cooperative, Honing Machine Operator Semiautomatic tive MEMORY Immediate, Recent, R emote MOOD [...]
== END 2024-12-25 09:09 | disposition home or self-care (01) ==
LOC: ANHIMG 09:11
PROVIDERS: Visit Provider Surgery
DX: K82.4 Cholesterolosis of gallbladder (principal)
CPT/HCPCS: 76705